=== PATIENT | male | born 1950 | race Caucasian/White ===

== ENCOUNTER → 2020-11-23 08:35 | Outpatient (BNVA) | payer MEDICARE, SELFPAY | PROVIDERS: Visit Provider Internal Medicine Cardiovascular Disease | DX: I48.0 Paroxysmal atrial fibrillation (principal); I47.1 Supraventricular tachycardia | CPT/HCPCS: 93005; 99212 ==

== ENCOUNTER 2020-12-07 10:07 | Outpatient (REF) | payer MEDICARE, SELFPAY ==
[2020-12-07 10:54] LABS: MANUAL DIFF FLAG NO
[2020-12-07 11:00] LABS: Basophils Percent Auto 0.5 % (0-2); Eosinophils Absolute Auto 0.1 X10*3/uL (0.0-0.4); Eosinophils Percent Auto 1.5 % (0-4); Hemoglobin 16.1 g/dl (14.0-18.0); Imm Gran Abs Auto 0.01 X10*3/uL (0.00-0.03); Imm Gran Pct Auto 0.2 % (0.0-0.4); Lymphocytes Absolute Auto 1.4 X10*3/uL (1.2-4.9); Lymphocytes Percent Auto 34.6 % (20-40); Mean Corpuscular HGB Conc 34.3 g/dl (31.0-36.0); Mean Corpuscular Hemoglobin 33.4 pg (27.0-33.0); Mean Corpuscular Volume 97.5 fL (80-98); Mean Platelet Volume 11.1 fL (9.4-12.4); Monocytes Absolute Auto 0.4 X10*3/uL (0.1-1.2); Monocytes Percent Auto 9.7 % (2-11); Neutrophils Absolute Auto 2.2 X10*3/uL (2.0-8.3); Neutrophils Percent Auto 53.5 % (45-73); Platelet Count 148 X10*3/uL (160-400); Red Blood Count 4.82 X10*6/uL (4.60-5.80); Red Cell Distribution Width 12.1 % (11.0-16.0)
[2020-12-07 11:29] LABS: Alanine Aminotransferase 20 U/L (0-40); Albumin Level 4.2 g/dL (3.5-5.0); Alkaline Phosphatase 43 U/L (39-117); Anion Gap 10 (12-20); Aspartate Amino Transferase 19 U/L (5-37); Bilirubin Total 1.3 mg/dL (0.0-1.0); Blood Urea Nitrogen 17 mg/dL (9-16); Calcium 8.8 mg/dL (8.4-10.2); Carbon Dioxide 28 mmol/L (22-29); Chloride 104 mmol/L (96-108); Cholesterol 182 mg/dL; Estimated Glomerular Filt Rate > 60; Glucose Fasting 104 mg/dL (60-99); HDL Cholesterol 60 mg/dL; LDL Cholesterol Calculated 113 mg/dl; Potassium 4.1 mmol/L (3.3-5.1); Sodium 138 mmol/L (135-145); Total Protein 6.8 g/dL (6.5-8.0); Triglycerides 48 mg/dL
[2020-12-07 11:46] LABS: Estimated Average Glucose 97 mg/dL
[2020-12-07 11:52] LABS: T4 Thyroxine 6.5 ug/dL (4.5-12.0); Thyroid Stimulating Hormone 1.31 uIU/mL (0.32-4.0); Vitamin D 25-OH Total 28.3 ng/mL (>30)
[2020-12-07 12:05] LABS: Folate > 20.0 ng/mL (> or = 4.0); Vitamin B12 1364 pg/mL (200-900)
== END 2020-12-07 10:08 | disposition home or self-care (01) ==
LOC: HO.LAB 10:07
PROVIDERS: PCP Internal Medicine; Visit Provider Internal Medicine
DX: I48.0 Paroxysmal atrial fibrillation (principal); R73.01 Impaired fasting glucose; E78.00 Pure hypercholesterolemia, unspecified
CPT/HCPCS: 36415; 80053; 80061; 82306; 82607; 82746; 83036; 84436; 84443; 85025

== ENCOUNTER → 2021-05-28 08:30 | Outpatient (BNVA) | payer MEDICARE, SELFPAY | PROVIDERS: PCP Internal Medicine; Visit Provider Internal Medicine Cardiovascular Disease | DX: I48.0 Paroxysmal atrial fibrillation (principal); I47.1 Supraventricular tachycardia; Z79.899 Other long term (current) drug therapy | CPT/HCPCS: 93005; 99212 ==

== ENCOUNTER 2021-07-24 10:06 | Outpatient (REF) | payer MEDICARE, SELFPAY ==
[2021-07-24 11:38] LABS: MANUAL DIFF FLAG NO
[2021-07-24 11:48] LABS: Basophils Percent Auto 0.5 % (0-2); Eosinophils Absolute Auto 0.1 X10*3/uL (0.0-0.4); Eosinophils Percent Auto 1.9 % (0-4); Hematocrit 44.4 % (42-52); Hemoglobin 15.3 g/dl (14.0-18.0); Imm Gran Abs Auto 0.01 X10*3/uL (0.00-0.03); Imm Gran Pct Auto 0.2 % (0.0-0.4); Lymphocytes Absolute Auto 1.2 X10*3/uL (1.2-4.9); Mean Corpuscular HGB Conc 34.5 g/dl (31.0-36.0); Mean Corpuscular Hemoglobin 33.7 pg (27.0-33.0); Mean Corpuscular Volume 97.8 fL (80-98); Mean Platelet Volume 11.7 fL (9.4-12.4); Monocytes Absolute Auto 0.4 X10*3/uL (0.1-1.2); Neutrophils Absolute Auto 2.6 X10*3/uL (2.0-8.3); Neutrophils Percent Auto 59.4 % (45-73); Platelet Count 138 X10*3/uL (160-400); Red Blood Count 4.54 X10*6/uL (4.60-5.80); Red Cell Distribution Width 12.4 % (11.0-16.0); White Blood Count 4.3 X10*3/uL (4.8-10.8)
[2021-07-24 12:31] LABS: Alanine Aminotransferase 18 U/L (0-40); Albumin Level 4.1 g/dL (3.5-5.0); Alkaline Phosphatase 40 U/L (39-117); Anion Gap 10 (12-20); Aspartate Amino Transferase 17 U/L (5-37); Bilirubin Total 1.2 mg/dL (0.0-1.0); Blood Urea Nitrogen 18 mg/dL (9-16); Carbon Dioxide 27 mmol/L (22-29); Chloride 109 mmol/L (96-108); Cholesterol 177 mg/dL; Estimated Glomerular Filt Rate > 60; Glucose Random 97 mg/dL (60-115); HDL Cholesterol 57 mg/dL; LDL Cholesterol Calculated 111 mg/dl; Potassium 3.8 mmol/L (3.3-5.1); Sodium 142 mmol/L (135-145); Total Protein 6.4 g/dL (6.5-8.0); Triglycerides 46 mg/dL
[2021-07-24 12:46] LABS: Folate 12.2 ng/mL (> or = 4.0); Vitamin B12 550 pg/mL (200-900)
== END 2021-07-24 10:07 | disposition home or self-care (01) ==
LOC: HO.HMGCLDS 10:06
PROVIDERS: PCP Internal Medicine; Visit Provider Internal Medicine
DX: E78.00 Pure hypercholesterolemia, unspecified (principal); I48.0 Paroxysmal atrial fibrillation
CPT/HCPCS: 36415; 80053; 80061; 82607; 82746; 85025

== ENCOUNTER 2021-09-23 10:29 | Emergency (ER) | payer MEDICARE, SELFPAY ==
--- NOTE | ~2021-09-23 | CT_ITS ---
EXAMINATION: CT ABDOMEN AND PELVIS WITHOUT CONTRAST CLINICAL INFORMATION: Left flank pain. COMPARISON: Abdominal ultrasound of 10/30/2017 TECHNIQUE: Multidetector volumetric imaging was performed from the superior aspect of the liver through the pubic symphysis. Sagittal and coronal reformatted images were obtained on the technologist's workstation. This CT examination was performed using dose optimization techniques as appropriate, variously including the following: *Automated exposure control *Adjustment of mA and/or kV according to patient size (this includes techniques or standardized protocols for targeted exams where dose is matched to indication/reason for exam; i.e. extremities or head) *Use of iterative reconstruction technique DLP: 558 mGy-cm FINDINGS: LUNG BASES: The visualized lung bases are unremarkable. LIVER, GALLBLADDER, AND BILIARY TREE: The liver is normal in size, shape, and attenuation. No focal hepatic lesion or biliary ductal dilatation is present. The gallbladder is unremarkable with no evidence of radiopaque gallstones, gallbladder wall thickening, or obvious pericholecystic inflammatory changes. PANCREAS: Unremarkable. SPLEEN: Unremarkable. ADRENAL GLANDS: No right adrenal nodule. Thickening of the left adrenal gland without focal nodule. KIDNEYS, URETERS AND BLADDER: The kidneys are normal in size, shape and attenuation, together measuring 0.7 cm with Hounsfield units of 939, approximately 10 cm from the skin of the posterior mid axillary line. There is a 0.7 cm calculus at the left ureterovesical junction with resultant mild hydroureteronephrosis. No additional radiopaque urinary tract calculi are noted. Mild bladder wall thickening is noted, likely related to underlying prostatomegaly. GASTROINTESTINAL TRACT: Scattered colonic diverticulosis without acute diverticulitis. Moderate stool burden in the colon. No evidence of colonic wall thickening or pericolonic fat stranding. The stomach and small bowel are not dilated. Small hiatal hernia. ABDOMINAL WALL: No significant hernia is appreciated. LYMPH NODES: No evidence of pathologically enlarged lymph nodes. VASCULAR: Unremarkable. PELVIC VISCERA: The prostate is enlarged protruding into the bladder base. It measures 6.3 cm in transverse dimension. Seminal vesicles are unremarkable. OSSEOUS STRUCTURES: Left total hip arthroplasty in place; visualized portions of the surgical hardware are intact. No acute or suspicious osseous abnormality. Mild grade 1 anterolisthesis of L4 over L5. Schmorl's node related changes are noted at L2-L3. Mild degenerative changes in the spine. Degenerative changes in the right hip. CT/CT abdomen pelvis wo con IMPRESSION: A 0.7 cm calculus at the left ureterovesical junction with resultant mild left hydroureteronephrosis. Additional 0.7 cm calculus in the upper pole of the left kidney. Prostatomegaly. Mild bladder wall thickening is likely related to underlying prostatomegaly. Colonic diverticulosis without acute diverticulitis.
[2021-09-23 10:34] VITALS: BP 161/73; PULSE 66; RESP 19; TEMP 36.6; O2SAT 98; BMI 25.0
--- NOTE | 2021-09-23 12:50 | ED_ITS ---
HPI - Male Genitourinary General Chief complaint: Urogenital-Male Stated complaint: urinary problem Time Seen by Provider: 09/23/21 12:49 Source: patient Mode of arrival: ambulatory Limitations: no limitations History of Present Illness HPI Narrative: 71-year-old male with a history of BPH, paroxysmal AFib on Xare lto, SVT, seizures, thrombocytopenia presents to the ER with brown colored urine for the last 2-3 days along with intermittent left flank pain. He reports his urine started becoming an orange color 3 days ago. He attributed it to not drinking enough water so he increased his oral hydation. He also noticed some left-sided back pain that is worse in the mornings. He attributed this to doing yd work and needing a new mattress. This morning he states his urine was dark brown in color which made him nervous. He has never had dark brown urine for. He denies any pain upon urination. He has had increased frequency but no urgency, no fever, no nausea, no vomiting, and no abdominal pain. He states while he was in the waiting room he urinated 4 times and his urine is now completely clear. MD Complaint: other ( Brown urine and left flank pain) Onset (ago): day(s) (3) Duration: intermittent and now resolved Location: penis and left flank Severity: moderate Quality: aching Relieving factors: none Exacerbating factors: none Associated symptoms: Reports denies other symptoms Related Data Home Medications Medication Instructions Recorded Confirmed cholecalciferol (vitamin D3) 25 25 mcg PO DAILY 08/18/20 06/12/21 mcg (1,000 unit) capsule cyanocobalamin (vitamin B-12) 1,000 mcg PO 2XW cap 06/12/21 06/12/21 1,000 mcg capsule folic acid 800 mcg tablet 0.8 mg PO 2XW tab 06/12/21 06/12/21 Previous Rx's Medication Instructions Recorded rivaroxaban 20 mg tablet (Xarelto) 20 mg PO DAILY #90 tab 02/05/21 metoprolol succinate 25 mg 25 mg PO DAILY 90 Days #90 tab 04/30/21 tablet,extended release 24 hr flecainide 50 mg tablet 50 mg PO BID #180 tab 07/23/21 hydrocodone 5 mg-acetaminophen 325 1 tab PO Q8H PRN #5 tab 09/23/21 mg tablet prednisone 20 mg tablet 40 mg PO DAILY #10 tab 09/23/21 tamsulosin 0.4 mg capsule (Flomax) 0.4 mg PO DAILY #5 cap 09/23/21 Allergies Allergy/AdvReac Type Severity Reaction Status Date / Time chlorpromazine Allergy Unknown Unknown Verified 06/12/21 09:35 prochlorperazine Allergy Unknown N/V Verified 06/12/21 09:35 [From COMPAZINE] SEIZURES Review of Systems Review of Systems: Constitutional: No Fever, + Chills ENT/Mouth: No sore throat, No Rhinorrhea, No Swallowing Difficulty Cardiovascular: No Chest Pain, No SOB Respiratory: No Cough, No Sputum Gastrointestinal: No Nausea, No Vomiting, No Diarrhea, No abdominal Pain Genitourinary: No Dysuria, + Urinary Frequency, No Hematuria, + brown urine, No foul smelling urine Musculoskeletal: No joint pain, + Myalgias Skin: No Skin Lesions, No rash Neuro: No Weakness, No Numbness, No Dizziness, No Headache Psych: No Anxiety/Panic, No Depression Heme/Lymph: No Bruising, No Lymphadenopathy Endocrine: No Polyuria, No Polydipsia PMFSH Past Medical History Attestation statement: The following information was validated with the patient. Medical History Hepatitis History of torn meniscus of right knee Hypercholesterolemia Impaired glucose tolerance Paroxysmal atrial fibrillation Seizures SVT (supraventricular tachycardia) Thrombocytopenia Vitamin D deficiency Surgical History Carpal tunnel syndrome History of left hip replacement S/P arthroscopic surgery of right knee Family History Family History Father Medical history unknown Mother Medical history unknown Social History Social History (Updated 06/12/21 @ 10:15 by Tasha Nelson MD) Alcohol intake: current Alcohol intake frequency: does not drink Patient Tobacco Use Status: Never used Tobacco Use of substances other than those prescribed or required for medical reasons: No Advance Directives: No Physical Exam Vital Signs: Vital Signs: Last Vital Signs Temp 97.9 F 09/23/21 14:54 Pulse 56 09/23/21 14:54 Resp 16 09/23/21 14:54 BP 136/71 09/23/21 14:54 Pulse Ox 100 09/23/21 14:54 Body Mass Index 25.0 Appearance: Alert. Oriented X3. No acute distress. Eyes: Pupils equal, round and reactive to light. ENT: Pharynx normal. Neck: Normal inspection. Neck supple. CVS: Normal heart rate and rhythm. Pulses normal. Respiratory: No respiratory distress. Breath sounds normal. Abdomen: Soft and nontender. +BS x4. No CVA tenderness. Skin: Skin warm and dry. Normal skin color. Normal skin turgor. No rashes. Extremities: No lower extremity edema. Neuro: Oriented X 3. No motor deficit. No sensory deficit. Course Course Course Narrative: 71-year-old male with history of paroxysmal AFib on Xarelto, HTN, SVT, HLD who presents to the ER with discolored urine and left flank pain. These seem to be 2 different processes. He has no CVA tenderness or other signs or symptoms of pyelonephritis or kidney stone. This pain seems to be musculoskeletal and related to positioning while sleeping and strenuous activity. his brown-colored urine has self resolved. This could be due to UTI or possible much hematuria due to anticoagulation. There is no trauma. Will check basic lab workup and urinalysis. IV fluids ordered. Reevaluation(s) Reevaluation #1: UA showing blood but no infection. Normal labs otherwise. CT abd/pelvis showing 0.7 cm kidney stone at UVJ with mild hydronephrosis. Another 0.7 cm stone in the upper pole of the left kidney. Patient is in no pain and appears well. Dr. Murcia was contacted who is recommending follow up in the off ice in a few days. Will d/c with Prednisone and Flomax. Stable for d/c home. Patient and counseled on warning signs to promput urgent re-evaluation. MDM - Male Genitourinary Lab Data Result diagrams: 09/23/21 13:22 09/23/21 13:22 Labs: Lab Results 09/23/21 09/23/21 09/23/21 Range/Units 13:22 13:22 13:22 WBC 6.1 (4.8-10.8) X10*3/uL RBC 4.69 (4.60-5.80) X10*6/uL Hgb 15.9 (14.0-18.0) g/dl Hct 45.4 (42.0-52.0) % MCV 96.8 (80.0-98.0) fL MCH 33.9 H (27.0-33.0) pg MCHC 35.0 (31.0-36.0) g/dl RDW 12.3 (11.0-16.0) % Plt Count 158 L (160-400) X10*3/uL MPV 10.6 (9.4-12.4) fL Immature Gran % (Auto) 0.2 (0.0-0.4) % Neut % (Auto) 73.5 H (45-73) % Lymph % (Auto) 18.8 L (20-40) % [place] % (Auto) 6.9 (2-11) % Eos % (Auto) 0.3 (0-4) % Baso % (Auto) 0.3 (0-2) % Lymph # (Auto) 1.1 L (1.2-4.9) X10*3/uL [place] # (Auto) 0.4 (0.1-1.2) X10*3/uL Eos # (Auto) 0.0 (0.0-0.4) X10*3/uL Baso # (Auto) 0.0 (0.0-0.2) X10*3/uL Abs Immat Gran (auto) 0.01 (0.00-0.03) X10*3/uL Absolute Neuts (auto) 4.5 (2.0-8.3) x10*3/uL Absolute Nucleated RBC 0.000 (0.0-0.012) X10*3/uL Nucleated RBC % (auto) 0.0 (0.0-0.2) /100WBC PT 16.2 H (9.9-13.0) SEC INR 1.4 H (0.9-1.1) APTT 37.6 (24.1-38.0) SEC Sodium 139 (135-145) mmol/L Potassium 4.3 (3.3-5.1) mmol/L Chloride 106 (96-108) mmol/L Carbon Dioxide 25 (22-29) mmol/L Anion Gap 12 (12-20) BUN 14 (9-16) mg/dL Creatinine 0.70 (0.5-1.4) mg/dL Estim Creat Clear Calc 90.9 Estimated GFR > 60 Random Glucose 95 (60-115) mg/dL Calcium 9.4 (8.4-10.2) mg/dL Magnesium 2.1 (1.6-2.6) mg/dL Total Bilirubin 1.0 (0.0-1.0) mg/dL Direct Bilirubin 0.4 (0.0-0.5) mg/dL AST 23 (5-37) U/L ALT 26 (0-40) U/L Alkaline Phosphatase 48 (39-117) U/L Total Protein 6.9 (6.5-8.0) g/dL Albumin 4.2 (3.5-5.0) g/dL Urine Color Urine Appearance Urine pH (5.0-8.0) Ur Specific [place] (1.005-1.025) Urine Protein (NEG-TRACE) MG/DL Urine Glucose (UA) (NEG) MG/DL Urine Ketones (NEG) MG/DL Urine Blood (NEG) Urine Nitrite (NEG) Ur Leukocyte Esterase (NEG) Urine RBC (0) /HPF Urine WBC (0-4) /HPF Ur Squamous Epith Cells /LPF Other Crystals /LPF Urine Bacteria /LPF COVID-19 ([facility]) (Negative) COVID-19 Clin Com 09/23/21 09/23/21 Range/Units 13:22 13:34 WBC (4.8-10.8) X10*3/uL RBC (4.60-5.80) X10*6/uL Hgb (14.0-18.0) g/dl Hct (42.0-52.0) % MCV (80.0-98.0) fL MCH (27.0-33.0) pg MCHC (31.0-36.0) g/dl RDW (11.0-16.0) % Plt Count (160-400) X10*3/uL MPV (9.4-12.4) fL Immature Gran % (Auto) (0.0-0.4) % Neut % (Auto) (45-73) % Lymph % (Auto) (20-40) % [place] % (Auto) (2-11) % Eos % (Auto) (0-4) % Baso % (Auto) (0-2) % Lymph # (Auto) (1.2-4.9) X10*3/uL [place] # (Auto) (0.1-1.2) X10*3/uL Eos # (Auto) (0.0-0.4) X10*3/uL Baso # (Auto) (0.0-0.2) X10*3/uL Abs Immat Gran (auto) (0.00-0.03) X10*3/uL Absolute Neuts (auto) (2.0-8.3) x10*3/uL Absolute Nucleated RBC (0.0-0.012) X10*3/uL Nucleated RBC % (auto) (0.0-0.2) /100WBC PT (9.9-13.0) SEC INR (0.9-1.1) APTT (24.1-38.0) SEC Sodium (135-145) mmol/L Potassium (3.3-5.1) mmol/L Chloride (96-108) mmol/L Carbon Dioxide (22-29) mmol/L Anion Gap (12-20) BUN (9-16) mg/dL Creatinine (0.5-1.4) mg/dL Estim Creat Clear Calc Estimated GFR Random Glucose (60-115) mg/dL Calcium (8.4-10.2) mg/dL Magnesium (1.6-2.6) mg/dL Total Bilirubin (0.0-1.0) mg/dL Direct Bilirubin (0.0-0.5) mg/dL AST (5-37) U/L ALT (0-40) U/L Alkaline Phosphatase (39-117) U/L Total Protein (6.5-8.0) g/dL Albumin (3.5-5.0) g/dL Urine Color STRAW Urine Appearance CLEAR Urine pH 6.0 (5.0-8.0) Ur Specific [place] <= 1.005 (1.005-1.025) Urine Protein NEG (NEG-TRACE) MG/DL Urine Glucose (UA) NEG (NEG) MG/DL Urine Ketones NEG (NEG) MG/DL Urine Blood 3+ H (NEG) Urine Nitrite NEG (NEG) Ur Leukocyte Esterase NEG (NEG) Urine RBC 0-2 (0) /HPF Urine WBC 0 (0-4) /HPF Ur Squamous Epith Cells NONE /LPF Other Crystals TRACE /LPF Urine Bacteria NONE /LPF COVID-19 ([facility]) Negative (Negative) COVID-19 Clin Com See Note Critical Care Time Critical Care Time Critical Care Time: No Discharge Plan Discharge Clinical Impression: Kidney stone on left side Patient Disposition: Home, Self-Care Instructions: Kidney Stones (ED), How to Strain Your Urine (ED) Additional Instructions: Your CT scan showed a 7 mm kidney stone in the distal left ureter, almost to the point of your bladder. You hopefully will pass his stone at home on your own. You are being given medication to help with this. Start taking the prednisone adn tamsulosin tomorrow, your given 1st doses today in the ER. Take the prescribed medication as needed for pain. The pains may come and go. If they are persistent and severe he had to come back to the emergency department. Follow-up with Dr. Murcia the urologist on Friday or early after . He is aware of your case. Drink plenty of water. If you develop new or worsening symptoms call 911 or come back to the ER for further evaluation. Prescriptions: New prednisone 20 mg tablet 40 mg PO DAILY Qty: 10 RF: 0 tamsulosin [Flomax] 0.4 mg capsule 0.4 mg PO DAILY Qty: 5 RF: 0 hydrocodone-acetaminophen 5-325 mg tablet 1 tab PO Q8H PRN (Reason: pain) Qty: 5 RF: 0 No Action rivaroxaban [Xarelto] 20 mg tablet 20 mg PO DAILY Qty: 90 RF: 3 metoprolol succinate 25 mg tablet extended release 24 hr 25 mg PO DAILY 90 Days Qty: 90 RF: 3 flecainide 50 mg tablet 50 mg PO BID Qty: 180 RF: 1 cholecalciferol (vitamin D3) 25 mcg (1,000 unit) capsule 25 mcg PO DAILY RF: 0 folic acid 800 mcg tablet 0.8 mg PO 2XW RF: 0 cyanocobalamin (vitamin B-12) 1,000 mcg capsule 1,000 mcg PO 2XW RF: 0 Referrals: Aiden Murcia MD [Physician] - 3 days (0.7 cm kidney stone at left UVJ w/ mild hydro)
[2021-09-23 13:31] LABS: MANUAL DIFF FLAG NO
[2021-09-23 13:32] LABS: Basophils Percent Auto 0.3 % (0-2); Eosinophils Percent Auto 0.3 % (0-4); Hematocrit 45.4 % (42.0-52.0); Hemoglobin 15.9 g/dl (14.0-18.0); Imm Gran Abs Auto 0.01 X10*3/uL (0.00-0.03); Imm Gran Pct Auto 0.2 % (0.0-0.4); Lymphocytes Absolute Auto 1.1 X10*3/uL (1.2-4.9); Lymphocytes Percent Auto 18.8 % (20-40); Mean Corpuscular Hemoglobin 33.9 pg (27.0-33.0); Mean Corpuscular Volume 96.8 fL (80.0-98.0); Mean Platelet Volume 10.6 fL (9.4-12.4); Monocytes Absolute Auto 0.4 X10*3/uL (0.1-1.2); Monocytes Percent Auto 6.9 % (2-11); Neutrophils Absolute Auto 4.5 x10*3/uL (2.0-8.3); Neutrophils Percent Auto 73.5 % (45-73); Platelet Count 158 X10*3/uL (160-400); Red Blood Count 4.69 X10*6/uL (4.60-5.80); Red Cell Distribution Width 12.3 % (11.0-16.0); White Blood Count 6.1 X10*3/uL (4.8-10.8)
[2021-09-23] MEDS: 0.9 % Sodium Chloride 1,000 ML 999 ML IVCONT (13:35)
[2021-09-23 13:38] LABS: INTERNATIONAL NORM RATIO 1.4 (0.9-1.1); Prothrombin Time 16.2 SEC (9.9-13.0)
[2021-09-23 13:40] LABS: Partial Thromboplastin Time 37.6 SEC (24.1-38.0)
[2021-09-23 13:47] LABS: COVID-19 Test Negative (Negative)
[2021-09-23 13:49] LABS: Alanine Aminotransferase 26 U/L (0-40); Albumin Level 4.2 g/dL (3.5-5.0); Alkaline Phosphatase 48 U/L (39-117); Anion Gap 12 (12-20); Aspartate Amino Transferase 23 U/L (5-37); Bilirubin Direct 0.4 mg/dL (0.0-0.5); Blood Urea Nitrogen 14 mg/dL (9-16); Calcium 9.4 mg/dL (8.4-10.2); Carbon Dioxide 25 mmol/L (22-29); Chloride 106 mmol/L (96-108); Creatinine Clr Calc Pharmacy 90.9; Estimated Glomerular Filt Rate > 60; Glucose Random 95 mg/dL (60-115); Magnesium 2.1 mg/dL (1.6-2.6); Potassium 4.3 mmol/L (3.3-5.1); Sodium 139 mmol/L (135-145); Total Protein 6.9 g/dL (6.5-8.0)
[2021-09-23 13:54] LABS: Appearance Urine CLEAR; Glucose Urine UA NEG (NEG); Leukocyte Esterase Urine NEG (NEG); Nitrite Urine NEG (NEG); Specific Gravity - Urine <= 1.005 (1.005-1.025); UACC Culture Trigger NO; Urine Blood 3+ (NEG); Urine Ketones NEG (NEG); Urine Protein NEG (NEG-TRACE)
[2021-09-23 13:58] LABS: Color Urine STRAW
[2021-09-23 14:16] LABS: WBC Urine 0 /HPF (0-4)
[2021-09-23 14:17] LABS: Other Crystals Urine TRACE /LPF; RBC Urine 0-2 /HPF (0)
[2021-09-23 14:54] VITALS: BP 136/71; PULSE 56; RESP 16; TEMP 36.6; O2SAT 100
[2021-09-23] MEDS: predniSONE 20 MG TABLET 40 MG PO (17:06)
[2021-09-23] MEDS: Tamsulosin HCL 0.4 MG CAPSULE PO (17:07)
== END 2021-09-23 17:14 | disposition home or self-care (01) ==
PROVIDERS: Physician Assistant; Emergency Provider Emergency Medicine Emergency Medical Services; PCP Internal Medicine
DX: N20.0 Calculus of kidney (principal); I48.91 Unspecified atrial fibrillation; Z79.01 Long term (current) use of anticoagulants; Z20.822 Contact with and (suspected) exposure to COVID-19; Z79.899 Other long term (current) drug therapy
CPT/HCPCS: 36415; 74176; 80048; 80076; 81001; 83735; 85025; 85610; 85730; 87635; 96360; 99284

== ENCOUNTER → 2021-10-03 15:33 | Outpatient (BNVA) | payer MEDICARE, SELFPAY | PROVIDERS: PCP Internal Medicine | DX: N20.0 Calculus of kidney (principal) | CPT/HCPCS: 99202 ==

== ENCOUNTER 2021-10-08 13:12 | Day surgery (SDC) | payer MEDICARE, SELFPAY ==
--- NOTE | 2021-10-05 13:52 | P.CONAN_ITS ---
Documented by User: Maryann Enriquez NP 10/05/21 14:03 HPI - Anesthesia Eval Consult details Narrative: 71yo M for Left Cystoscopy, Ureteroroscopy, Retro, Laser, Possible Stent Xarelto for PAF OK to proceed and hold xarelto per cardiology [facility] Active Problems Active Problems: All Active Problems (Updated 10/03/21 @ 16:44 by Aiden Murcia MD) Nephrolithiasis (Acute) BPH (benign prostatic hyperplasia) (Acute) Guaiac positive stools (Acute) Medicare annual wellness visit, initial (Acute) Vitamin D deficiency (Acute) SVT (supraventricular tachycardia) (Acute) Allergic reaction (Acute) Hypercholesterolemia (Acute) Impaired glucose tolerance (Acute) Paroxysmal atrial fibrillation (Acute) Past Medical History Medical History Hepatitis History of torn meniscus of right knee Hypercholesterolemia Impaired glucose tolerance Paroxysmal atrial fibrillation Seizures SVT (supraventricular tachycardia) Thrombocytopenia Vitamin D deficiency Family History Family History Father Medical history unknown Mother Medical history unknown Surgical History Surgical History Carpal tunnel syndrome History of left hip replacement S/P arthroscopic surgery of right knee Social History Social History Alcohol intake: current Alcohol intake frequency: does not drink Patient Tobacco Use Status: Never used Tobacco Use of substances other than those prescribed or required for medical reasons: No Are you DNR?: No Advance Directives: No Advance Directives Information Provided: Yes Meds Allergies Allergy/AdvReac Type Severity Reaction Status Date / Time chlorpromazine Allergy Unknown Unknown Verified 10/08/21 13:45 prochlorperazine Allergy Unknown N/V Verified 10/08/21 13:45 [From COMPAZINE] SEIZURES Home Medications Medication Instructions Recorded Confirmed Last Taken Type cholecalciferol (vitamin D3) 25 25 mcg PO DAILY 08/18/20 06/12/21 Unknown History mcg (1,000 unit) capsule cyanocobalamin (vitamin B-12) 1,000 mcg PO 2XW cap 06/12/21 06/12/21 Unknown History 1,000 mcg capsule folic acid 800 mcg tablet 0.8 mg PO 2XW tab 06/12/21 06/12/21 Unknown History Exam Exam Date and Time: October 05, 2021 1352 Pertinent Lab Results Pertinent Lab Results: Laboratory Tests 09/23/21 09/23/21 13:22 13:22 WBC 6.1 Hgb 15.9 Hct 45.4 Plt Count 158 L Sodium 139 Potassium 4.3 Chloride 106 Carbon Dioxide 25 BUN 14 Creatinine 0.70 Narrative Narrative: EKG 05/2021 sinus bradycardia with left axis deviation with some QRS widening, unchanged from before with Q-waves in lead 1 and lead aVL which might be suggestive septal hypertrophy ECHO 08/2019 Nml LV sys function with impaired relaxation filling pattern Nml cardiac valvular doppler Nml RV systolic pressure Moderate tricuspid regurg No pericardial effusion Assessment and Plan Assessment Anesthesia Assessment: Chart Reviewed Documented by User: Lynda Lorenzana MD 10/08/21 14:28 PMFSH Past Medical History Medical History Hepatitis History of torn meniscus of right knee Hypercholesterolemia Impaired glucose tolerance Paroxysmal atrial fibrillation Seizures SVT (supraventricular tachycardia) Thrombocytopenia Vitamin D deficiency Family History Family History Father Medical history unknown Mother Medical history unknown Family history of problems with anesthesia: No Surgical History Surgical History Carpal tunnel syndrome History of left hip replacement S/P arthroscopic surgery of right knee History of Problems with Anesthesia: No Social History Social History Alcohol intake: current Alcohol intake frequency: does not drink Patient Tobacco Use Status: Never used Tobacco Use of substances other than those prescribed or required for medical reasons: No Are you DNR?: No Advance Directives: No Advance Directives Information Provided: Yes Meds Allergies Allergy/AdvReac Type Severity Reaction Status Date / Time chlorpromazine Allergy Unknown Unknown Verified 10/08/21 13:45 prochlorperazine Allergy Unknown N/V Verified 10/08/21 13:45 [From COMPAZINE] SEIZURES Home Medications Medication Instructions Recorded Confirmed Last Taken Type cholecalciferol (vitamin D3) 25 25 mcg PO DAILY 08/18/20 06/12/21 Unknown History mcg (1,000 unit) capsule cyanocobalamin (vitamin B-12) 1,000 mcg PO 2XW cap 06/12/21 06/12/21 Unknown History 1,000 mcg capsule folic acid 800 mcg tablet 0.8 mg PO 2XW tab 06/12/21 06/12/21 Unknown History Exam Airway Mallampati Class: II TM Dist: >3cm Neck ROM: Full Heart: hussain Lungs: cta Assessment and Plan Assessment Anesthesia Assessment: Anesthesia Plan Discussed and Chart Reviewed Final Anesthetic Review Family History of Problems with Anesthesia: No History of Problems with Anesthesia: No NPO: Yes ASA Class: II Final Preanesthetic Review: No Changes in Pt Med Stat, Meds/Allgs Chart Reviewed and Consent Obtained/Reviewed Patient Risk: Intermediate Procedure Risk: Intermediate Anesthetic Plan Anesthetic Plan: MAC: Disposition: Standard PACU
[2021-10-08 13:45] VITALS: BMI 25.0
[2021-10-08 13:57] VITALS: BP 137/70; PULSE 51; RESP 16; TEMP 36.7; O2SAT 99
[2021-10-08] MEDS: Acetaminophen 325 MG TABLET 650 MG PO (14:04)
[2021-10-08] MEDS: Lactated Ringers 1,000 ML 100 ML IVCONT (14:25)
--- NOTE | 2021-10-08 15:36 | MHC.SHP ---
Pre-Procedural Eval Section A Date of Service: 10/08/21 The patient is an INPATIENT: No Changes since office visit: No Cold of Flu in the past 2 weeks, No New Medical Problems, No Changes in Medication and No Patient answered all questions The History & Physical has been completed within 30 days and I have reviewed it.: Yes Section B Chief Complaint: Calculus of Kidney Allergies: Allergies Allergy/AdvReac Type Severity Reaction Status Date / Time chlorpromazine Allergy Unknown Unknown Verified 10/08/21 13:45 prochlorperazine Allergy Unknown N/V Verified 10/08/21 13:45 [From COMPAZINE] SEIZURES Plan Diagnosis/Plan: Unchanged (Cystoscopy, left retrograde, left ureteroscopy laser lithotripsy stent placement) I have reviewed the history and physical and performed a pertinent physical examination on my patient. No changes have occurred unless specified.
--- NOTE | 2021-10-08 16:12 | W.PM.OPN ---
Operative Note Operative Note Date of Service: 10/08/21 Narrative: PreOperative Diagnosis: Distal left ureteric stone Post Operative Diagnosis: Distal left ureteric stone Procedure: - cystoscopy, leftretrograde - left ureteroscopy, laser lithotripsy, stone basketing - left stent placement Surgeon: Dr Aiden Murcia Anesthesia: General Indications for procedure: Is a 71-year-old male. Presents emergency room with hematuria. On imaging seen to have a distal left ureteric stone. Baseline is on anticoagulation. Given stone location and size recommendation for ureteroscopy with laser lithotripsy and stent placement. Procedure: After informed consent was verified patient was brought to the operating placed in supine position. Anesthesia was administered per protocol. Patient was placed in modified dorsal lithotomy position and prepped and draped in a sterile fashion. Safety pause time-out and side of surgery confirmed. Antibiotics confirmed. Twenty-two [place] cystoscope inserted per urethra. Slight meatal narrowing that was easy to dilate. Left ureteric orifice seen and cannulated. Retrograde examination performed. Distal left ureteric stone filling defect seen with mild hydroureteronephrosis proximally. Sensor guidewire placed up to the level of pelvis. Rigid ureteral scope passed alongside sensor guidewire. Stone encountered in distal portion of the ureter. Using a holmium laser the stone was broken into small pieces. This was a 360 micron fiber. Using a flat wire basket stone fragments were removed from the ureter and deposited in the bladder. Multiple passes were required. At this point the rigid ureteral scope was removed. The wire was backloaded through the 22 [place] cystoscope. The cystoscope was advanced into the bladder. A 6 [place] by 26 cm double-J stent was advanced over the wire up to the level of the renal pelvis and the bladder under combination of fluoroscopy and direct visualization. Good coil was seen. The wire was removed. The bladder was then emptied and stone fragments were washed into the drape. Stone fragments were collected only sent for analysis. The bladder was emptied. The cystoscope removed. He tolerated the procedure well, was extubated in operating room, and transferred in stable condition to the recovery area. Pathology: Stones Drains: 6 [place] by 26 cm stent
[2021-10-08 16:18] VITALS: BP 133/68; PULSE 53; RESP 16; TEMP 36.2; O2SAT 100
[2021-10-08 16:23] VITALS: BP 136/67; PULSE 48; RESP 16; O2SAT 99
[2021-10-08 16:28] VITALS: BP 137/72; PULSE 49; RESP 18; O2SAT 100
[2021-10-08 16:33] VITALS: BP 141/74; PULSE 50; RESP 18; O2SAT 100
[2021-10-08 16:48] VITALS: BP 137/69; PULSE 51; RESP 18; TEMP 36.4
[2021-10-08] MEDS: Phenazopyridine HCL 100 MG TABLET PO (17:12)
[2021-10-14 06:46] LABS: Stone Source LEFT URETERAL STONE
== END 2021-10-08 17:25 | disposition home or self-care (01) ==
PROVIDERS: PCP Internal Medicine; Visit Provider Urology
PROC: (CPT 52356; principal; 2021-10-08 15:00)
DX: N20.1 Calculus of ureter (principal); R73.02 Impaired glucose tolerance (oral); E78.00 Pure hypercholesterolemia, unspecified; I48.0 Paroxysmal atrial fibrillation; D69.6 Thrombocytopenia, unspecified; E55.9 Vitamin D deficiency, unspecified; R56.9 Unspecified convulsions; Z79.899 Other long term (current) drug therapy; Z88.8 Allergy status to other drugs, medicaments and biological substances
CPT/HCPCS: 52356; 52352; 82365; 88300; C1758; C1769; C2617; J1956; J2405; J3010; Q9967

== ENCOUNTER → 2021-10-16 09:00 | Outpatient (BNVA) | payer MEDICARE, SELFPAY | PROVIDERS: Visit Provider Urology | DX: N20.0 Calculus of kidney (principal) | CPT/HCPCS: 52310; 99212 ==

== ENCOUNTER 2021-11-06 16:03 | Outpatient (REF) | payer MEDICARE, SELFPAY ==
--- NOTE | ~2021-11-06 | US_ITS ---
EXAMINATION: US RETROPERITONEAL LIMITED (RENAL ONLY) CLINICAL INFORMATION: Calculus of kidney. COMPARISON: CT abdomen and pelvis 10/23/2021. Ultrasound abdomen complete 10/30/2017. TECHNIQUE: Real-time imaging of the kidneys. FINDINGS: RIGHT KIDNEY: 11.5 x 4.9 x 4.6 cm (SAG x AP x TRV). The kidney is normal in size, contour, and echogenicity. Renal cortical thickness is normal. No calculi or focal parenchymal lesions. No hydronephrosis. LEFT KIDNEY: 10.3 x 5.5 x 6.2 cm (SAG x AP x TRV). The kidney is normal in size, contour, and echogenicity. Renal cortical thickness is normal. No focal parenchymal lesions or hydronephrosis. There is an echogenic stone in lower pole measuring 0.7 x 0.4 x 0.6 cm. There is a punctate calcification versus small echogenic calculi in the upper pole. US/US renal BI IMPRESSION: 1. Nonobstructive echogenic calculi lower pole left kidney. 2. Punctate calcification versus stone in the upper pole.
== END 2021-11-06 16:04 | disposition home or self-care (01) ==
LOC: HO.US 16:03
PROVIDERS: Visit Provider Urology
DX: N20.0 Calculus of kidney (principal)
CPT/HCPCS: 76775

== ENCOUNTER → 2021-11-12 11:27 | Outpatient (REF) | payer MEDICARE, SELFPAY ==
--- NOTE | 2021-11-12 11:37 | CA_ITS ---
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 The calculated ejection fraction is 64% by biplane method. - There is mild to moderate tricuspid valve regurgitation. Findings Left Ventricle Normal left ventricular cavity size. There is mildly increased left ventricular wall thickness. The left ventricular systolic function is normal. The calculated ejection fraction is 64% by biplane method. There is no evidence of regional wall motion abnormalities. E/E prime ratio is >15, consistent with elevated filling pressures. Evidence suggests grade I (mild) diastolic dysfunction. Right Ventricle Normal right ventricular cavity size and systolic function. Atria The left atrium is mildly dilated. The right atrium is normal in size. Aortic Valve There is a normal trileaflet aortic valve. There is no aortic valve stenosis. There is no aortic valve regurgitation. Mitral Valve The mitral valve appears normal. There is trace mitral valve regurgitation. There is no mitral valve stenosis. Pulmonic Valve The pulmonic valve was not well visualized. Tricuspid Valve Normal tricuspid valve structure. There is mild to moderate tricuspid valve regurgitation. The pulmonary artery systolic pressure is normal. Great Vessels The aortic annulus, sinuses of valsalva, and asc aorta are normal in size. Venous The inferior vena cava is normal in size and collapses greater than 50% with inspiration. Pericardium/Pleural There is no evidence of pericardial effusion. Prior Study Comparison No significant change compared to prior study dated: 08/26/2019. Measurements 2D Linear Measurements IVSd: 1.18 0.6-0.9/0.6-1.0 cm LVIDd: 4.15 3.9-5.3/4.2-5.9 cm LVIDd Index: 2.21 2.4-3.2/2.2-3.1 cm/m2 LVIDs: 2.48 2.0-3.6 cm LVPWd: 1.15 0.7-1.1 cm Ao Root: 3.10 2.1-3.5 cm LA Diam: 3.60 2.7-3.8/3.0-4.0 cm LAIDs Index: 1.91 1.5-2.3 cm/m2 LV Mass: 208.65 67-162/88-224 g LV Mass Index: 110.98 43-95/49-115 g/m2 LVOT Diam: 2.20 3.0+(-)1.3 cm 2D Systolic Function EF 4C: 63.80 >55% EF 2C: 62.40 >55% EF BiP: 63.60 >55% Mitral Valve MV Pk E: 0.81 MV PK A: 0.92 MV Decel Time: 248.00 E/A: 0.90 E'Lateral: 8.59 E'Medial: 4.90 E/E' Med: 16.40 E/E' Lat: 9.40 PHT: 73.00 MVA PHT: 3.01 Decel [place]: 3.24 Aortic Valve AoV Pk Tino: 1.46 AoV Mn Tino: 0.89 AoV VTI: 0.34 AoV Pk Grad: 9.00 Aov Mn Grad: 4.00 JAMESON Cont.VTI: 3.21 LVOT LVOT Pk Tino: 1.10 LVOT Mn Tino: 0.74 LVOT VTI: 0.28 LVOT Pk Grad: 5.00 LVOT Mn Grad: 3.00 LVOT Diam: 2.20 LVOT Area: 3.80 Diastolic Function MV Pk E: 0.81 MV Pk A: 0.92 E/A: 0.90 E'Medial: 4.90 E/E' Med: 16.40 E' Laterial: 8.59 E/E' Lat: 9.40 Right Ventricle TAPSE (mm): 36.00 TVS' Tino: 14.00 Tricuspid Valve TR Pk Tino: 2.73 TR Pk Grad: 30.00 Great Vessels Aorta Ao Root-2D: 3.10 2.0-3.7 cm Ao Asc: 3.00 2.1-3.4 cm Pulmonary Valve PV Pk Tino: 0.87 Peak PV Grad: 3.00 Updated in Other Vendor System with Status of Final Tobi Gomez MD electronically signed on 11/12/2021 4:58:20 PM with status of Final
== END ==
LOC: HO.CARD 11:27
PROVIDERS: Visit Provider Internal Medicine Cardiovascular Disease
DX: I48.0 Paroxysmal atrial fibrillation (principal); I47.1 Supraventricular tachycardia
CPT/HCPCS: 93306

== ENCOUNTER → 2021-11-19 09:29 | Outpatient (BNVA) | payer MEDICARE, SELFPAY | PROVIDERS: PCP Internal Medicine; Referring Provider Internal Medicine; Visit Provider Internal Medicine Cardiovascular Disease | DX: I48.0 Paroxysmal atrial fibrillation (principal); I47.1 Supraventricular tachycardia; I07.1 Rheumatic tricuspid insufficiency | CPT/HCPCS: 93005; 99212 ==

== ENCOUNTER → 2021-12-18 13:13 | Outpatient (BNVA) | payer MEDICARE, SELFPAY | PROVIDERS: PCP Internal Medicine; Visit Provider Urology | DX: N20.0 Calculus of kidney (principal) | CPT/HCPCS: Q3014 ==

== ENCOUNTER → 2021-12-19 15:24 | Outpatient (BNVA) | payer MEDICARE, SELFPAY | PROVIDERS: PCP Internal Medicine; Visit Provider Urology | DX: Z13.89 Encounter for screening for other disorder (principal) | CPT/HCPCS: Q3014 ==

== ENCOUNTER 2022-01-16 07:02 | Day surgery (SDC) | payer MEDICARE, SELFPAY ==
[2022-01-14 09:25] VITALS: BMI 25.4
--- NOTE | 2022-01-14 12:15 | HO.ANESPROP2 ---
Documented by User: Maryann Enriquez NP 01/14/22 12:23 HPI - Anesthesia Eval Consult details Narrative: 71yo M for Left Lithotripsy ESW s/p cysto, etc 10/2021 with GA-LMA 4 Xarelto for afib PMFSH Active Problems Active Problems: All Active Problems (Updated 01/14/22 @ 09:25 by Franci Lindsay, RN) Allergic reaction (Acute) Medicare annual wellness visit, initial (Acute) Guaiac positive stools (Acute) BPH (benign prostatic hyperplasia) (Acute) Nephrolithiasis (Acute) Colon cancer screening (Acute) Vitamin D deficiency (Acute) SVT (supraventricular tachycardia) (Acute) Hypercholesterolemia (Acute) Impaired glucose tolerance (Acute) Paroxysmal atrial fibrillation (Acute) Past Medical History Medical History Hepatitis History of torn meniscus of right knee Hypercholesterolemia Impaired glucose tolerance Paroxysmal atrial fibrillation Seizures SVT (supraventricular tachycardia) Thrombocytopenia Vitamin D deficiency Family History Family History Father Medical history unknown Mother Medical history unknown Family history of problems with anesthesia: No Surgical History Surgical History Carpal tunnel syndrome History of left hip replacement Hx of colonoscopy S/P arthroscopic surgery of right knee History of Problems with Anesthesia: No Social History Social History Housing: House Are you a primary health care technician to a significant other at home: No Do you presently have visiting nurse or other home services: No Alcohol intake: current Alcohol intake frequency: does not drink Patient Tobacco Use Status: Never used Tobacco e-Cigarette/Vaping Use: Never Used Second Hand Smoke Exposure: No Are you DNR?: No Advance Directives: No Advance Directives Information Provided: Yes Advance Directives on File: No Recently lost weight without trying: No Current occupational status: retired Meds Allergies Allergy/AdvReac Type Severity Reaction Status Date / Time prochlorperazine Allergy Severe N/V Verified 01/14/22 09:23 [From COMPAZINE] SEIZURES, 1950's Home Medications Medication Instructions Recorded Confirmed Last Taken Type cholecalciferol (vitamin D3) 25 25 mcg PO DAILY 08/18/20 01/14/22 Unknown History mcg (1,000 unit) capsule cyanocobalamin (vitamin B-12) 1,000 mcg PO 2XW cap 06/12/21 01/14/22 Unknown History 1,000 mcg capsule folic acid 800 mcg tablet 0.8 mg PO 2XW tab 06/12/21 01/14/22 Unknown History azelaic acid 15 % topical gel 1 appl TOPICAL BID 10/16/21 12/13/21 Unknown History omeprazole 20 mg capsule,delayed 20 mg PO BID 11/19/21 01/14/22 Unknown History release Exam Exam Date and Time: January 14, 2022 1215 Height,Weight and Vital Signs: Height 5 ft 8 in Weight 75.75 kg Pertinent Lab Results Pertinent Lab Results: Laboratory Tests 09/23/21 09/23/21 13:22 13:22 WBC 6.1 Hgb 15.9 Hct 45.4 Plt Count 158 L Sodium 139 Potassium 4.3 Chloride 106 Carbon Dioxide 25 BUN 14 Creatinine 0.70 Narrative Narrative: EKG 11/2021 sinus bradycardia at 53 beats per minute with LVH with left anterior fascicular block, unchanged from before ECHO 11/2021 Conclusions: - The left ventricular systolic function is normal.? The ? calculated ejection fraction is 64% by biplane method. ? - There is mild to moderate tricuspid valve regurgitation. ? ? Assessment and Plan Assessment Anesthesia Assessment: Chart Reviewed Final Anesthetic Review Family History of Problems with Anesthesia: No History of Problems with Anesthesia: No Documented by User: Raina Garcia MD 01/16/22 09:17 [facility] Past Medical History Medical History Hepatitis History of torn meniscus of right knee Hypercholesterolemia Impaired glucose tolerance Paroxysmal atrial fibrillation Seizures SVT (supraventricular tachycardia) Thrombocytopenia Vitamin D deficiency Family History Family History Father Medical history unknown Mother Medical history unknown Surgical History Surgical History Carpal tunnel syndrome History of left hip replacement Hx of colonoscopy S/P arthroscopic surgery of right knee Social History Social History Housing: House Are you a primary health care technician to a significant other at home: No Do you presently have visiting nurse or other home services: No Alcohol intake: current Alcohol intake frequency: does not drink Patient Tobacco Use Status: Never used Tobacco e-Cigarette/Vaping Use: Never Used Second Hand Smoke Exposure: No Are you DNR?: No Advance Directives: No Advance Directives Information Provided: Yes Advance Directives on File: No Recently lost weight without trying: No Current occupational status: retired Meds Allergies Allergy/AdvReac Type Severity Reaction Status Date / Time prochlorperazine Allergy Severe N/V Verified 01/14/22 09:23 [From COMPAZINE] SEIZURES, 1950's Home Medications Medication Instructions Recorded Confirmed Last Taken Type cholecalciferol (vitamin D3) 25 25 mcg PO DAILY 08/18/20 01/14/22 Unknown History mcg (1,000 unit) capsule cyanocobalamin (vitamin B-12) 1,000 mcg PO 2XW cap 06/12/21 01/14/22 Unknown History 1,000 mcg capsule folic acid 800 mcg tablet 0.8 mg PO 2XW tab 06/12/21 01/14/22 Unknown History azelaic acid 15 % topical gel 1 appl TOPICAL BID 10/16/21 12/13/21 Unknown History omeprazole 20 mg capsule,delayed 20 mg PO BID 11/19/21 01/14/22 Unknown History release Exam Airway Mallampati Class: III TM Dist: >3cm Neck ROM: Full Loose/Missing/Broken Teeth: No Heart: RRR Lungs: CTA Assessment and Plan Assessment Anesthesia Assessment: Anesthesia Plan Discussed Final Anesthetic Review NPO: Yes ASA Class: III Final Preanesthetic Review: Meds/Allgs Chart Reviewed, Consent Obtained/Reviewed and Anes Risks/Benef Reviewed Patient Risk: Intermediate Procedure Risk: Low Anesthetic Plan Anesthetic Plan: MAC: Disposition: Standard PACU
--- NOTE | ~2022-01-16 | XR_ITS ---
EXAMINATION: XR ABDOMEN KUB CLINICAL INDICATION: Left renal stone COMPARISON: Ultrasound 11/06/2021. CT abdomen 05/23/2021 TECHNIQUE: 2 views of the abdomen. FINDINGS: 4.5 mm calcification projected over the expected region of the renal fossa, probable left renal calculus. No additional renal calculi are seen. Bowel gas and stool limits evaluation. No calculi evident along the expected course of the ureters. Phleboliths in the right pelvis. Left hip arthroplasty. Spinal degeneration. XR/XR KUB IMPRESSION: Probable 4.5 mm left renal calculus. No additional calculi identified. Bowel gas and stool limits evaluation.
[2022-01-16 07:42] VITALS: BP 137/69; PULSE 50; RESP 18; TEMP 36.6; O2SAT 95
[2022-01-16] MEDS: Lactated Ringers 1,000 ML 100 ML IVCONT (08:25)
[2022-01-16] MEDS: Acetaminophen 325 MG TABLET 650 MG PO (08:25)
--- NOTE | 2022-01-16 08:31 | MHC.SHP ---
Pre-Procedural Eval Section A Date of Service: 01/16/22 The patient is an INPATIENT: No Changes since office visit: No Cold of Flu in the past 2 weeks, No New Medical Problems, No Changes in Medication and No Patient answered all questions The History & Physical has been completed within 30 days and I have reviewed it.: No Section B Chief Complaint: kidney stone Details of Present Illness: left renal stone Relevant Social History: None Present Medications: see Short Stay Collaborative assessment Medical History: No relevant PMH History of Previous Operations: Relevant previous surgery/procedure and date(s) Allergies: Allergies Allergy/AdvReac Type Severity Reaction Status Date / Time prochlorperazine Allergy Severe N/V Verified 01/14/22 09:23 [From COMPAZINE] SEIZURES, 1950's Review of Systems Sugical H&P ROS: Negative: Constitution, Cardiovascular, Respiratory, Neurological, Psychiatric, Hem-Onc, Allergic/Immunologic, Gastrointestinal, Genitourinary, Musculoskeletal, Integumentary, Endocrine and Eyes/Ears/Nose/Throat Exam Surgical H&P Exam: Normal: HEENT, Normal: Heart, Normal: Lungs, Normal: Extremities, Normal: Abdomen, Normal: Skin and Normal: Neurological Plan Diagnosis/Plan: Unchanged (left eswl) I have reviewed the history and physical and performed a pertinent physical examination on my patient. No changes have occurred unless specified.
--- NOTE | 2022-01-16 09:35 | W.PM.OPN ---
Operative Note Operative Note Date of Service: 01/16/22 Narrative: PreOperative Diagnosis: left Renal stones Post Operative Diagnosis: left Renal stones Procedure: left ESWL Surgeon: Dr Aiden Murcia Anesthesia: mac/sedation Indications for procedure: The patient understands ESWL may be a staged procedure and subsequent intervention may be required based on imaging after ESWL. They also understand there is a risk of bleeding to the kidney, infection, damage to adjacent organs, and stone migration following the procedure. - Imaging 6mm lower pole Procedure: After informed consent was verified the patient was brought to the operating room and placed in a supine position. Anesthesia was performed per protocol. Safety pause time-out was performed. Imaging was displayed in the room and laterality confirmed. ESWL was performed. The 1st 500 shocks were performed at 60 hertz. These were performed with increasing power. Once maximum power was reached the rate was increased to 180 hertz. A total of 2500 shocks were given. Targetted imaging with ultrasound/fluoroscopy showed stone smudging suggestive of disintegration. The patient tolerated the procedure well and was transferred to the recovery area upon completion. Post procedure imaging will be organized. There was no evidence for flank discoloration.
[2022-01-16 09:55] VITALS: BP 111/59; PULSE 48; RESP 20; TEMP 36.2; O2SAT 100
[2022-01-16 10:10] VITALS: BP 122/62; PULSE 49; RESP 98; TEMP 36.5; O2SAT 98
== END 2022-01-16 10:47 | disposition home or self-care (01) ==
PROVIDERS: PCP Internal Medicine; Visit Provider Urology
PROC: (CPT 50590; principal; 2022-01-16 09:10)
DX: N20.0 Calculus of kidney (principal); I48.0 Paroxysmal atrial fibrillation; I47.1 Supraventricular tachycardia; E78.00 Pure hypercholesterolemia, unspecified; R73.02 Impaired glucose tolerance (oral); E55.9 Vitamin D deficiency, unspecified; D69.6 Thrombocytopenia, unspecified; R56.9 Unspecified convulsions; Z79.01 Long term (current) use of anticoagulants; Z79.899 Other long term (current) drug therapy; Z96.642 Presence of left artificial hip joint; Z88.8 Allergy status to other drugs, medicaments and biological substances
CPT/HCPCS: 50590; 74018; J2250; J3010

== ENCOUNTER 2022-01-23 10:24 | Outpatient (REF) | payer MEDICARE, SELFPAY ==
--- NOTE | ~2022-01-23 | US_ITS ---
EXAMINATION: US RETROPERITONEAL LIMITED (RENAL ONLY) CLINICAL INFORMATION: Calculus of kidney. COMPARISON: X-ray KUB 01/16/2022. Renal ultrasound 11/06/2021. CT abdomen and pelvis 09/23/2021. Ultrasound abdomen complete 10/30/2017. TECHNIQUE: Real-time imaging of the kidneys. FINDINGS: RIGHT KIDNEY: 11.0 x 5.0 x 5.2 cm (SAG x AP x TRV). The kidney is normal in size, contour, and echogenicity. Renal cortical thickness is normal. No calculi or focal parenchymal lesions. No hydronephrosis. LEFT KIDNEY: 11.6 x 5.7 x 5.3 cm (SAG x AP x TRV). The kidney is normal in size, contour, and echogenicity. Renal cortical thickness is normal. No calculi or focal parenchymal lesions. No hydronephrosis. US/US renal BI IMPRESSION: Unremarkable sonographic appearance of the kidneys. No renal calculi identified bilaterally.
== END 2022-01-23 10:25 | disposition home or self-care (01) ==
LOC: HO.HMGCX 10:24
PROVIDERS: Visit Provider Urology
DX: N20.0 Calculus of kidney (principal)
CPT/HCPCS: 76775

== ENCOUNTER → 2022-02-05 11:09 | Outpatient (BNVA) | payer MEDICARE, SELFPAY | PROVIDERS: PCP Internal Medicine; Visit Provider Urology | DX: Z48.816 Encounter for surgical aftercare following surgery on the genitourinary system (principal) | CPT/HCPCS: 99212; Q3014 ==

== ENCOUNTER → 2022-05-28 09:23 | Outpatient (BNVA) | payer MEDICARE, SELFPAY | PROVIDERS: PCP Internal Medicine; Referring Provider Internal Medicine; Visit Provider Internal Medicine Cardiovascular Disease | DX: I48.0 Paroxysmal atrial fibrillation (principal); I47.1 Supraventricular tachycardia; R00.1 Bradycardia, unspecified | CPT/HCPCS: 93005; 99212 ==

== ENCOUNTER 2022-06-11 09:31 | Outpatient (REF) | payer MEDICARE, SELFPAY ==
[2022-06-11 11:28] LABS: MANUAL DIFF FLAG NO
[2022-06-11 11:35] LABS: Basophils Percent Auto 0.6 % (0-2); Eosinophils Absolute Auto 0.1 X10*3/uL (0.0-0.4); Eosinophils Percent Auto 1.4 % (0-4); Hematocrit 44.3 % (42.0-52.0); Hemoglobin 15.3 g/dl (14.0-18.0); Imm Gran Abs Auto 0.01 X10*3/uL (0.00-0.03); Imm Gran Pct Auto 0.3 % (0.0-0.4); Lymphocytes Absolute Auto 1.3 X10*3/uL (1.2-4.9); Mean Corpuscular HGB Conc 34.5 g/dl (31.0-36.0); Mean Corpuscular Hemoglobin 33.3 pg (27.0-33.0); Mean Corpuscular Volume 96.3 fL (80.0-98.0); Mean Platelet Volume 11.7 fL (9.4-12.4); Monocytes Absolute Auto 0.3 X10*3/uL (0.1-1.2); Monocytes Percent Auto 9.1 % (2-11); Neutrophils Percent Auto 53.6 % (45-73); Platelet Count 151 X10*3/uL (160-400); Red Cell Distribution Width 12.9 % (11.0-16.0); White Blood Count 3.6 X10*3/uL (4.8-10.8)
[2022-06-11 11:46] LABS: Alanine Aminotransferase 24 U/L (0-40); Albumin Level 4.4 g/dL (3.5-5.0); Alkaline Phosphatase 41 U/L (39-117); Anion Gap 11 (12-20); Aspartate Amino Transferase 25 U/L (5-37); Bilirubin Total 1.5 mg/dL (0.0-1.0); Blood Urea Nitrogen 15 mg/dL (9-16); Calcium 9.2 mg/dL (8.4-10.2); Carbon Dioxide 27 mmol/L (22-29); Chloride 103 mmol/L (96-108); Cholesterol 190 mg/dL; Estimated Glomerular Filt Rate > 60; Glucose Random 98 mg/dL (60-115); HDL Cholesterol 64 mg/dL; LDL Cholesterol Calculated 116 mg/dl; Potassium 4.3 mmol/L (3.3-5.1); Sodium 137 mmol/L (135-145); Total Protein 6.9 g/dL (6.5-8.0); Triglycerides 50 mg/dL
[2022-06-11 12:14] LABS: Thyroid Stimulating Hormone 1.14 uIU/mL (0.32-4.0)
[2022-06-11 12:17] LABS: Folate 13.1 ng/mL (> or = 4.0); Vitamin B12 547 pg/mL (200-900)
== END 2022-06-11 09:32 | disposition home or self-care (01) ==
LOC: HO.HMGCLDS 09:31
PROVIDERS: PCP Internal Medicine; Visit Provider Internal Medicine
DX: N20.0 Calculus of kidney (principal); E78.00 Pure hypercholesterolemia, unspecified
CPT/HCPCS: 36415; 80053; 80061; 82607; 82746; 83735; 84439; 84443; 85025

== ENCOUNTER 2022-07-29 08:47 | Outpatient (REF) | payer MEDICARE, SELFPAY ==
--- NOTE | ~2022-07-29 | US_ITS ---
EXAMINATION: US RETROPERITONEAL LIMITED (RENAL ONLY) CLINICAL INFORMATION: Calculus of kidney. COMPARISON: Ultrasound retroperitoneal limited (renal only) 01/23/2022. CT abdomen and pelvis without contrast 09/23/2021. TECHNIQUE: Real-time imaging of the kidneys. FINDINGS: RIGHT KIDNEY: 11.3 x 4.7 x 5.5 cm (SAG x AP x TRV). The kidney is normal in size, contour, and echogenicity. Renal cortical thickness is normal. No calculi or focal parenchymal lesions. No hydronephrosis. LEFT KIDNEY: 9.8 x 5.9 x 4.8 cm (SAG x AP x TRV). The kidney is normal in size, contour, and echogenicity. Renal cortical thickness is normal. No focal parenchymal lesions or hydronephrosis. 3 mm nonobstructing upper pole renal stone. This is new from prior ultrasound. US/US renal BI IMPRESSION: New 3 mm nonobstructing left upper pole renal stone..
== END 2022-07-29 08:48 | disposition home or self-care (01) ==
LOC: HO.HMGCX 08:47
PROVIDERS: PCP Internal Medicine; Visit Provider Urology
DX: N20.0 Calculus of kidney (principal)
CPT/HCPCS: 76775

== ENCOUNTER → 2022-08-29 13:54 | Outpatient (BNVA) | payer MEDICARE, SELFPAY | PROVIDERS: PCP Internal Medicine; Visit Provider Urology | DX: N20.0 Calculus of kidney (principal); N40.0 Benign prostatic hyperplasia without lower urinary tract symptoms | CPT/HCPCS: 51798; 99212 ==

== ENCOUNTER 2022-10-29 16:05 | Outpatient (REF) | payer MEDICARE, SELFPAY ==
--- NOTE | ~2022-10-29 | XR_ITS ---
EXAMINATION: XR WRIST, LEFT CLINICAL INFORMATION: Left wrist pain COMPARISON: Left wrist radiographs 04/10/2016 TECHNIQUE: PA, lateral, and oblique views of the left wrist. FINDINGS: Chronic ununited scaphoid waist fracture. Progression in radioscaphoid and midcarpal compartment osteoarthropathy with progressive joint space narrowing, subchondral sclerosis, and osteophyte formation. Large subchondral cyst in the distal radius/scaphoid fossa. Widening of the scapholunate interval. No acute fracture or dislocation. Pronator fat pad is intact. Soft tissue swelling along the dorsal wrist. Small osteophytes the first CMC joint consistent with mild osteoarthritis. 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 No acute fracture or dislocation identified.
== END 2022-10-29 16:06 | disposition home or self-care (01) ==
LOC: HO.XRAY 16:05
PROVIDERS: PCP Internal Medicine; Visit Provider Internal Medicine
DX: M25.532 Pain in left wrist (principal)
CPT/HCPCS: 73100

== ENCOUNTER 2022-11-21 09:26 | Outpatient (REF) | payer MEDICARE, SELFPAY ==
[2022-11-21 11:19] LABS: MANUAL DIFF FLAG NO
[2022-11-21 11:28] LABS: Basophils Percent Auto 0.6 % (0-2); Eosinophils Absolute Auto 0.1 X10*3/uL (0.0-0.4); Eosinophils Percent Auto 1.9 % (0-4); Hematocrit 45.4 % (42.0-52.0); Hemoglobin 15.6 g/dl (14.0-18.0); Imm Gran Abs Auto 0.02 X10*3/uL (0.00-0.03); Imm Gran Pct Auto 0.4 % (0.0-0.4); Lymphocytes Absolute Auto 1.4 X10*3/uL (1.2-4.9); Lymphocytes Percent Auto 26.4 % (20-40); Mean Corpuscular HGB Conc 34.4 g/dl (31.0-36.0); Mean Corpuscular Hemoglobin 33.9 pg (27.0-33.0); Mean Corpuscular Volume 98.7 fL (80.0-98.0); Monocytes Absolute Auto 0.5 X10*3/uL (0.1-1.2); Monocytes Percent Auto 10.1 % (2-11); Neutrophils Absolute Auto 3.2 x10*3/uL (2.0-8.3); Neutrophils Percent Auto 60.6 % (45-73); Platelet Count 161 X10*3/uL (160-400); Red Cell Distribution Width 12.5 % (11.0-16.0); White Blood Count 5.2 X10*3/uL (4.8-10.8)
[2022-11-21 11:35] LABS: Alanine Aminotransferase 23 U/L (0-40); Albumin Level 4.1 g/dL (3.5-5.0); Alkaline Phosphatase 45 U/L (39-117); Anion Gap 10 (12-20); Aspartate Amino Transferase 25 U/L (5-37); Bilirubin Total 1.3 mg/dL (0.0-1.0); Blood Urea Nitrogen 15 mg/dL (9-16); Calcium 9.3 mg/dL (8.4-10.2); Carbon Dioxide 28 mmol/L (22-29); Chloride 106 mmol/L (96-108); Estimated Glomerular Filt Rate > 60; Glucose Random 96 mg/dL (60-115); Potassium 4.5 mmol/L (3.3-5.1); Sodium 139 mmol/L (135-145); Total Protein 6.6 g/dL (6.5-8.0)
== END 2022-11-21 09:27 | disposition home or self-care (01) ==
LOC: HO.HMGCLDS 09:26
PROVIDERS: PCP Internal Medicine; Visit Provider Internal Medicine
DX: I48.0 Paroxysmal atrial fibrillation (principal)
CPT/HCPCS: 36415; 80053; 85025

== ENCOUNTER → 2022-12-02 08:47 | Outpatient (BNVA) | payer MEDICARE, SELFPAY | PROVIDERS: PCP Internal Medicine; Referring Provider Internal Medicine; Visit Provider Internal Medicine Cardiovascular Disease | DX: I48.0 Paroxysmal atrial fibrillation (principal); I47.1 Supraventricular tachycardia; R00.1 Bradycardia, unspecified | CPT/HCPCS: 93005; 99212 ==

== ENCOUNTER → 2022-12-25 07:52 | Outpatient (REF) | payer MEDICARE, OTHER, SELFPAY ==
--- NOTE | 2022-12-25 08:00 | CA_ITS ---
Transthoracic Echocardiogram Patient (Last, First, Middle): Tobias Morejon E Gender: Male Date of : 1950 Age: 72 Procedure Date: 12/25/2022 Procedure Type: Transthoracic Echocardiogram Location: OP Height: 172.72 cm Weight: 74.39 kg BSA: 1.88 m2 Heart Rate: bpm BP: 120 / 62 mmHg Cloth Dye Range Operator: TO Referring MD: Jerry Turner MD Symptoms: I48.0 - Paroxysmal atrial fibrillation Study Quality: Fair ECG Rhythm: Sinus Conclusions: - The left ventricular systolic function is normal. The calculated ejection fraction is 59% by biplane method. - The left atrium is moderately dilated. - There is mild to moderate tricuspid valve regurgitation. - Mild pulmonary hypertension is present. Findings Left Ventricle Normal left ventricular cavity size. There is normal left ventricular wall thickness. The left ventricular systolic function is normal. The calculated ejection fraction is 59% by biplane method. There is no evidence of regional wall motion abnormalities. Diastolic function is normal for age. LV peak GLS -18.8%. Right Ventricle Mildly increased right ventricular cavity size. There is normal right ventricular systolic function. Atria The left atrium is moderately dilated. The right atrium is normal in size. Aortic Valve There is a normal trileaflet aortic valve. There is no aortic valve stenosis. There is no aortic valve regurgitation. Mitral Valve The mitral valve appears normal. There is trace mitral valve regurgitation. There is no mitral valve stenosis. Pulmonic Valve The pulmonic valve is likely normal. Tricuspid Valve There is mild to moderate tricuspid valve regurgitation. Mild pulmonary hypertension is present. Great Vessels The asc aorta is normal in size. Venous The inferior vena cava is mildly dilated and collapses greater than 50% with inspiration. Pericardium/Pleural There is no evidence of pericardial effusion. Prior Study Comparison Changes noted compared to prior study dated: 11/12/2021. Left atrium possibly larger, but cannot exclude technical reasons for difference. Slight change in RVSP. Measurements 2D Linear Measurements IVSd: 0.95 0.6-0.9/0.6-1.0 cm LVIDd: 4.29 3.9-5.3/4.2-5.9 cm LVIDd Index: 2.28 2.4-3.2/2.2-3.1 cm/m2 LVIDs: 2.99 2.0-3.6 cm LVPWd: 0.98 0.7-1.1 cm LA Diam: 2.90 2.7-3.8/3.0-4.0 cm LAIDs Index: 1.54 1.5-2.3 cm/m2 LV Mass: 167.43 67-162/88-224 g LV Mass Index: 89.06 43-95/49-115 g/m2 LVOT Diam: 2.00 3.0+(-)1.3 cm 2D Systolic Function EF 4C: 58.50 >55% EF 2C: 60.60 >55% EF BiP: 58.50 >55% Mitral Valve MV Pk E: 0.81 MV PK A: 0.91 MV Decel Time: 270.00 E/A: 0.90 E'Lateral: 8.49 E'Medial: 5.22 E/E' Med: 15.60 E/E' Lat: 9.60 PHT: 79.00 MVA PHT: 2.78 Decel [place]: 3.02 Aortic Valve AoV Pk Tino: 1.44 AoV Mn Tino: 1.07 AoV VTI: 0.36 AoV Pk Grad: 8.00 Aov Mn Grad: 5.00 JAMESON Cont.VTI: 2.26 LVOT LVOT Pk Tino: 1.07 LVOT Mn Tino: 0.77 LVOT VTI: 0.26 LVOT Pk Grad: 5.00 LVOT Mn Grad: 3.00 LVOT Diam: 2.00 LVOT Area: 3.14 Diastolic Function MV Pk E: 0.81 MV Pk A: 0.91 E/A: 0.90 E'Medial: 5.22 E/E' Med: 15.60 E' Laterial: 8.49 E/E' Lat: 9.60 Right Ventricle TAPSE (mm): 31.70 TVS' Tino: 13.10 Tricuspid Valve TR Pk Tino: 2.96 TR Pk Grad: 35.00 RA Press: 8.00 RVSP: 43.00 Great Vessels Aorta Sinus of Valsalva: 3.36 2.0-3.5 cm Ao Asc: 3.50 2.1-3.4 cm Updated in Other Vendor System with Status of Final Tobi Gomez MD electronically signed on 12/27/2022 3:33:24 PM with status of Final
== END ==
LOC: HO.CARD 07:52
PROVIDERS: PCP Internal Medicine; Visit Provider Internal Medicine Cardiovascular Disease
DX: I48.0 Paroxysmal atrial fibrillation (principal)
CPT/HCPCS: 93306; 93356

== ENCOUNTER 2023-02-19 08:48 | Outpatient (REF) | payer MEDICARE, OTHER, SELFPAY ==
--- NOTE | ~2023-02-19 | US_ITS ---
EXAMINATION: US RETROPERITONEAL LIMITED (RENAL ONLY) CLINICAL INFORMATION: Calculus of kidney. COMPARISON: Renal ultrasound 07/29/2022 and 01/23/2022. TECHNIQUE: Real-time imaging of the kidneys. FINDINGS: RIGHT KIDNEY: 10.5 x 5.6 x 6.3 cm (SAG x AP x TRV). The kidney is normal in size, contour, and echogenicity. Renal cortical thickness is normal. No calculi or focal parenchymal lesions. No hydronephrosis. LEFT KIDNEY: 11.4 x 4.9 x 5.6 cm (SAG x AP x TRV). The kidney is normal in size, contour, and echogenicity. Renal cortical thickness is normal. No calculi or focal parenchymal lesions. No hydronephrosis. Unchanged 3 mm echogenic focus in the upper left kidney, equivocal for kidney stone. US/US renal BI IMPRESSION: Stable echogenic focus in the upper left kidney. On today's study there is no twinkle or shadowing. This is equivocal for a small calculus. No hydronephrosis.
== END 2023-02-19 08:49 | disposition home or self-care (01) ==
LOC: HO.HMGCX 08:48
PROVIDERS: PCP Internal Medicine; Visit Provider Urology
DX: N20.0 Calculus of kidney (principal)
CPT/HCPCS: 76775

== ENCOUNTER → 2023-03-06 08:21 | Outpatient (BNVA) | payer MEDICARE, SELFPAY | PROVIDERS: PCP Internal Medicine; Visit Provider Urology | DX: N20.0 Calculus of kidney (principal) | CPT/HCPCS: 99212 ==

== ENCOUNTER 2023-06-05 08:40 | Outpatient (AMB) | payer MEDICARE, SELFPAY ==
--- NOTE | 2023-06-05 08:46 | A.OFFVIS_ITS ---
Intake Vital Signs 06/05/23 08:47 Height 5 ft 8 in Weight 167 lb 8.821 oz BMI 25.5 BP 120/74 Blood Pressure Location Lt brachial Position Sitting Pulse 55 Intake Visit Reasons: 6M w/EKG after echo Intake Note: 6 month follow-up with ekg after echo feeling good Investor Relations Specialist Required: No Allergies prochlorperazine [From COMPAZINE] Allergy (Severe, Verified 03/06/23 08:22) N/V SEIZURES, 1950's Medication List - Last Reconciled 06/05/23 by Jerry Turner MD azelaic acid 15% 1 appl topical BID cholecalciferol (vitamin D3) 25 mcg PO DAILY cyanocobalamin (vitamin B-12) 1,000 mcg PO 2XW flecainide 50 mg PO BID fluticasone propionate 50 mcg/actuation (Flonase Allergy Relief) 2 sprays intranasal DAILY folic acid 0.8 mg PO 2XW metoprolol succinate ER 25 mg PO DAILY 90 days pyridoxine (vitamin B6) 50 mg PO DAILY 90 days rivaroxaban (Xarelto) 20 mg PO DAILY HPI HPI Comments History of Present Illness Details Tobias comes for follow-up. He has been doing well. He has increased stress related to his personal family. However he has not had any recurrent episodes of atrial fibrillation or SVT. Takes all his medications. No lightheadedness, syncope. No bleeding issues or neurologic events. Denies any exertional chest pain or shortness of breath. [facility] Medical History Hepatitis History of torn meniscus of right knee Hypercholesterolemia Impaired glucose tolerance Paroxysmal atrial fibrillation Seizures SVT (supraventricular tachycardia) Thrombocytopenia Vitamin D deficiency Surgical History Carpal tunnel syndrome History of left hip replacement Hx of colonoscopy S/P arthroscopic surgery of right knee Family History Father Medical history unknown Mother Medical history unknown Social History Housing: House Are you a primary career consultant to a significant other at home: No Do you presently have visiting nurse or other home services: No Alcohol intake: current Alcohol intake frequency: a few times a week Alcohol type: wine Patient Tobacco Use Status: Never used Tobacco e-Cigarette/Vaping Use: Never Used Second Hand Smoke Exposure: No Current occupational status: retired Cognitive needs: No Hearing needs: No Vision needs: No Review of Systems Const Denies chills, Denies fatigue, Denies fever(s), Denies frequent falls, Denies weakness, Denies weight gain and Denies weight loss ENT Denies dizziness Card Denies chest pain, Denies leg edema, Denies lightheadedness, Denies palpitations, Denies dyspnea, Denies dyspnea on exertion, Denies orthopnea and Denies other (loss of consciousness) Resp Denies cough, Denies dyspnea and Denies dyspnea on exertion GI Denies hematochezia and Denies change in stool character Musc Denies abnormal gait, Denies muscle weakness, Denies numbness, Denies radiating pain into limb and Denies tingling Neuro Denies abnormal gait, Denies dizziness, Denies frequent falls, Denies numbness, Denies tingling and Denies weakness Endo Denies fatigue and Denies palpitations Physical Exam Vital Signs: Last Vital Signs Pulse 55 06/05/23 08:47 BP 120/74 06/05/23 08:47 BMI result Body Mass Index 25.5 Const General: cooperative, comfortable, no acute distress, alert, awake and well groomed Nutritional Appearance: average body habitus Orientation/consciousness: patient oriented x3 Limitations: no limitations Neck Neck: Yes trachea midline, Yes supple and Yes no JVD Resp Effort & Inspection: normal respiratory effort Auscultation: clear to auscultation bilaterally Cardio Jugular venous distension: no JVD Palpation: normal PMI Rate: regular rate Rhythm: regular rhythm Heart sounds: S1 normal heart sound present, S2 normal heart sound present, no click, no gallops, no murmurs and no rubs GI Auscultation: normal bowel sounds Skin General skin exam: no rashes or lesions noted Neuro General: patient oriented x3 and no focal motor deficits Extrem General: Yes no clubbing, cyanosis or edema Psych Appearance: grossly normal Office Procedures EKG Details: EKG shows normal sinus rhythm with left anterior fascicular block with LVH [id number], Complete Assessment & Plan Assessment & Plan (1) Paroxysmal atrial fibrillation: Code(s): I48.0 - Paroxysmal atrial fibrillation Plan: Highly symptomatic paroxysmal atrial fibrillation in this elderly gentleman has done well with rhythm control approach will continue pursue rhythm control approach. Continue current flecainide therapy. Requires concomitant low-dose metoprolol therapy. Heart rate on the slower side but no symptoms related to it. Continue full oral anticoagulation, currently on Xarelto 20 mg daily. Semi annual renal function test should be performed. Continue risk factor modification. Avoidance of stimulants was discussed. Stress mitigation strategies advised. Maintain heart healthy lifestyle. Will follow up in the clinic in 6 months time, sooner p.r.n.. Thank you for allowing me to partake in his care Coding Level of Care Code Est Pt Level 3 (97036) Diagnoses Paroxysmal atrial fibrillation I48.0 CPT Codes EKG - CPT: 07676-[id number], Complete ([id number])
[2023-06-05 08:47] VITALS: BP 120/74; PULSE 55; BMI 25.5
== END 2023-06-05 09:19 | disposition home or self-care (01) ==
PROVIDERS: PCP Internal Medicine; Referring Provider Internal Medicine; Visit Provider Internal Medicine Cardiovascular Disease
DX: I48.0 Paroxysmal atrial fibrillation (principal)
CPT/HCPCS: 93010; 99213

== ENCOUNTER → 2023-06-05 08:40 | Outpatient (BNVA) | payer MEDICARE, SELFPAY | PROVIDERS: PCP Internal Medicine; Referring Provider Internal Medicine; Visit Provider Internal Medicine Cardiovascular Disease | DX: I48.0 Paroxysmal atrial fibrillation (principal) | CPT/HCPCS: 93005; 99212 ==

== ENCOUNTER 2023-06-17 13:55 | Outpatient (AMB) | payer MEDICARE, OTHER, SELFPAY ==
[2023-06-17 13:55] VITALS: BP 130/74; PULSE 50; O2SAT 99; BMI 25.7
--- NOTE | 2023-06-17 13:55 | A.OFFVIS_ITS ---
Intake Vital Signs 06/17/23 13:55 Height 5 ft 8 in Weight 169 lb BMI 25.7 BP 130/74 Blood Pressure Location Lt brachial Position Sitting Pulse 50 Pulse Source Pulse Oximeter Temp Source Skin Pulse Oximetry (%) 99 Oxygen Delivery Method Room Air Intake Visit Reasons: AWV Intake Note: Patient is here for an Annual Wellness Visit. 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 Required: No Allergies prochlorperazine [From COMPAZINE] Allergy (Severe, Verified 06/17/23 14:18) N/V SEIZURES, 1950's Medication List - Last Reconciled 06/17/23 by MITESH Davis azelaic acid 15% 1 appl topical BID cholecalciferol (vitamin D3) 25 mcg PO DAILY cyanocobalamin (vitamin B-12) 1,000 mcg PO 2XW flecainide 50 mg PO BID fluticasone propionate 50 mcg/actuation (Flonase Allergy Relief) 2 sprays intranasal DAILY folic acid 0.8 mg PO 2XW metoprolol succinate ER 25 mg PO DAILY 90 days pyridoxine (vitamin B6) 50 mg PO DAILY 90 days rivaroxaban (Xarelto) 20 mg PO DAILY Fall Risk Assessment Fall risk assessment: 1 Fall in past year Date Fall Risk Assessed: 06/17/23 HPI AWV HPI Details Patient is a 72-year-old male presents today for subsequent wellness visit. Patient of Dr. Nelson. Today we discussed patient's need for diabetes screening and prostate cancer screening. Up-to-date with immunizations. [place] of care was reviewed with the patient and he was provided with a screening schedule. Healthcare proxy is on file and patient was provided with a MOLST form. [facility] Medical History (Updated 06/17/23 @ 15:41 by MITESH Davis) COVID-19 virus infection Hepatitis History of torn meniscus of right knee Hypercholesterolemia Impaired glucose tolerance Medicare annual wellness visit, initial Paroxysmal atrial fibrillation Seizures SVT (supraventricular tachycardia) Thrombocytopenia Vitamin D deficiency Surgical History (Updated 06/17/23 @ 15:41 by MITESH Davis) Carpal tunnel syndrome History of left hip replacement Hx of colonoscopy S/P arthroscopic surgery of right knee Family History Father Medical history unknown Mother Medical history unknown Social History (Reviewed 06/17/23 @ 14:18 by ROE Davis Housing: House Are you a primary child day care center worker to a significant other at home: No Do you presently have visiting nurse or other home services: No Alcohol intake: current Alcohol intake frequency: a few times a week Alcohol ty pe: wine Patient Tobacco Use Status: Never used Tobacco e-Cigarette/Vaping Use: Never Used Second Hand Smoke Exposure: No Current occupational status: retired Cognitive needs: No Hearing needs: No Vision needs: No Questionnaire Medicare Wellness Checkup [age] What gender do you identify with?: male During the past 4 weeks, how much have you been bothered by emotional problems such as feeling anxious, depressed, irritable, sad or downhearted, and blue?: not at all During the past 4 weeks, has your physical & emotional health limited your social activities with family, friends, neighbors, or groups?: not at all During the past 4 weeks, how much bodily pain have you generally had?: no pain During the past 4 weeks, was someone available to help you if you needed & wanted help?: yes, as much as I wanted During the past 4 weeks, what was the hardest physical activity you could do for at least 2 minutes?: moderate Can you get to places out of walking distance without help? (For eg., can you travel alone on buses, taxis or drive your car?): Yes Can you go shopping for groceries or clothes without someone's help?: Yes Can you prepare your own meals?: Yes Can you do your housework without help?: Yes Because of any health problems, do you need the help of another person with your personal care needs such as eating, bathing, dressing or getting around the house?: No Can you handle your own money without help?: Yes During the past 4 weeks, how would you rate your health in general?: good During the past 4 weeks how have things been going for you?: pretty well Are you having difficulties driving your car?: no Do you always fasten your seat belt when you are in a car?: yes, usually During past 4 weeks, have you been bothered by the following: never: Sexual problems?, Trouble eating well?, Teeth or denture problems? and Problems using the telephone?, seldom: Tiredness or fatigue? and sometimes: Falling or dizzy when standing up (falls ) Have you fallen 2 or more times in the past year?: Yes Are you afraid of falling?: Yes Are you a smoker?: no During the past 4 weeks, how many drinks of wine, beer, or other alcoholic beverages did you have?: 2-5 drinks per week Do you exercise for about 20 minutes 3 or more times a week?: yes, most of the time Have you been given information to help with the following?: yes: Hazards in your house that might hurt you? and yes: Keeping track of your medications? How often do you have trouble taking medicines the way you have been told to take them?: I always take medicine as prescribed How confident are you that you can control & manage most of your health problems?: very confident What is your race?: White Mini Mental State Exam (MMSE) Orientation What is the (year) (season) (date) (day) (month)?: year, season, date, day and month Score Score: 5 Activity of Daily Living Bathing - sponge bath, tub bath or shower: receives no assistance (gets in/out by self, if usual bathing means Dressing - getting clothes from closets & drawers, including inner/outer garments & fasteners.: gets clothes & gets completely dressed without help Toileting - going to the 'toilet room' for urine/bowel elimination & cleaning self/arranging clothes: goes to toilet room, cleans self, arranges clothes without help Transfer: moves in & out of bed and chair without help (may use support object) Continence: controls urination/bowel movements completely by self Feeding: feeds self without help Total Score: 0 Information obtained from: patient Using telephone: independent Traveling: independent Shopping: independent Preparing meals: independent Housework: independent Taking medicine: independent Managing money: independent PHQ-9 Over the last 2 weeks, how often have you been bothered by any of the following problems? 1. Little interest or pleasure in doing things: not at all 2. Feeling down, depressed, or hopeless: not at all 3. Trouble falling or staying asleep, or sleeping too much: not at all 4. Feeling tired or having little energy: not at all 5. Poor appetite or overeating: not at all 6. Feeling bad about yourself - or that you are a failure or have let yourself or your family down: not at all 7. Trouble concentrating on things, such as reading the newspaper or watching television: not at all 8. Moving or speaking so slowly that other people could have noticed. Or the opposite - being so fidgety or restless that you have been moving around a lot more than usual: not at all 9. Thoughts that you would be better off or of hurting yourself in some way: not at all Total score: 0 Depression Screening Interpretation: Negative 82069 - PHQ-9 Billing: Yes Source: Developed by Drs. Vipul Espinoza, Aidee Ji, Marcello Harrison and colleagues, with an educational chepe from [employer]. RANDY-7 AMB Questionnaire RANDY-7 Date RANDY - 7 assessed: 01/08/23 Feeling nervous, anxious, or on edge: 0 = Not at all Not being able to stop or control worryin = Not at all Worrying too much about different things: 0 = Not at all Trouble relaxin = Not at all Being so restless that it is hard to sit still: 0 = Not at all Becoming easily annoyed or irritable: 0 = Not at all Feeling afraid as if something awful might happen: 0 = Not at all Total RANDY-7 score (0-4 normal; 5-9 mild; 10-14 moderate; 15-21 severe): 0 Source: Developed by Drs. Vipul Espinoza, Aidee Ji, Marcello Harrison and colleagues, with an educational chepe from [employer]. RANDY-7 Assessment Billing RANDY-7 Assessment Tool: RANDY-7 Assessment 14605 AUDIT C Alcohol Use Questionnaire (AUDIT-C) 1. How often do you have a drink containing alcohol?: 2-3 times a week 2. How many drinks containing alcohol do you have on a typical day when you are drinking?: 1 or 2 3. How often do you have six or more drinks on one occasion?: Never Total Score: 3 Score Reviewed/Action Taken: Yes Thrive Questionnaire Date Thrive assessed: 06/17/23 I am a: Patient What is your living situation today?: I have a steady place to live Within the past 12 months, did the food you bought not last and you didn't have the money to get more?: Never true Within the past 12 months, did you worry whether your food would run out before you got money to buy more?: Never true Do you have trouble paying for medicines?: No Do you have trouble getting transportation to medical appointments?: No Do you have trouble paying your heating and electricity bill?: No Do you have trouble taking care of your child, family member or friend?: No Do you have trouble with day-to-day activities such as bathing, preparing meals, shopping, managing finances, etc.?: No Currently or been in a relationship where the following occur: no concerns reported Physical Exam Vital Signs: Last Vital Signs Pulse 50 06/17/23 13:55 BP 130/74 06/17/23 13:55 Pulse Ox 99 06/17/23 13:55 Oxygen Delivery Method Room Air 06/17/23 13:55 BMI result Body Mass Index 25.7 Const General: cooperative and no acute distress Orientation/consciousness: patient oriented x3 HEENT Other: Whisper test: fail Neuro Other: Balance: Normal Get up and walk: unable to Romberg: negative Tandem gait: unable to General: patient oriented x3 Assessment & Plan Assessment & Plan (1) Screening for prostate cancer: Code(s): Z12.5 - Encounter for screening for malignant neoplasm of prostate (2) Medicare annual wellness visit, subsequent: Code(s): Z00.00 - Encounter for general adult medical examination without abnormal findings (3) Hypercholesterolemia: Code(s): E78.00 - Pure hypercholesterolemia, unspecified Plan: Low-cholesterol diet (4) Impaired glucose tolerance: Code(s): R73.02 - Impaired glucose tolerance (oral) Plan: Fasting blood work has been ordered (5) Paroxysmal atrial fibrillation: Code(s): I48.0 - Paroxysmal atrial fibrillation Plan: Continue to follow-up with cardiology Continue Xarelto and metoprolol Plan Keep appointment with PCP as scheduled or follow-up sooner as needed Orders: Orders Basic Metabolic Panel Fasting Today R73.02 - Impaired glucose tolerance (oral) Prostate Specific Antigen Today Z12.5 - Encounter for screening for malignant neoplasm of prostate Medications: Refilled fluticasone propionate 50 mcg/actuation (Flonase Allergy Relief) administer into each nostril 2 sprays intranasal DAILY 16 grams 0RF Quality Reporting (2020) Fall Risk Screening ([facility] 139) Last assessed Fall Risk: 06/17/23 Fall risk assessment: 1 Fall in past year Depression/Bipolar (159/160/161/177) PHQ-9: Total score: 0 Coding Level of Care Code Medicare Subsequent (G0439) Diagnoses Screening for prostate cancer Z12.5 Medicare annual wellness visit, subsequent Z00.00 Hypercholesterolemia E78.00 Impaired glucose tolerance R73.02 Paroxysmal atrial fibrillation I48.0 CPT Codes Advance Care Planning - Advance Care Planning discussion: On file, no changes ([id number]) Advance Care Planning - Time spent: 1-15 minutes, on File ([id number]) Additional Codes RANDY-7 Assessment Billing - RANDY-7 Assessment Tool: RANDY-7 Assessment 62688 ([id number]) Advance Care Planning Advance Care Planning discussion: On file, no changes Date of discussion: 06/17/23 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
== END 2023-06-17 14:34 | disposition home or self-care (01) ==
PROVIDERS: Visit Provider Nurse Practitioner Family
DX: Z00.00 Encounter for general adult medical examination without abnormal findings (principal); Z12.5 Encounter for screening for malignant neoplasm of prostate; E78.00 Pure hypercholesterolemia, unspecified; I48.0 Paroxysmal atrial fibrillation; R73.02 Impaired glucose tolerance (oral)
CPT/HCPCS: 1123F; G0439

== ENCOUNTER 2023-07-02 08:25 | Outpatient (REF) | payer MEDICARE, SELFPAY ==
[2023-07-02 12:11] LABS: Anion Gap 12 (12-20); Blood Urea Nitrogen 15 mg/dL (9-16); Calcium 9.1 mg/dL (8.4-10.2); Carbon Dioxide 28 mmol/L (22-29); Chloride 106 mmol/L (96-108); Cholesterol 178 mg/dL (<200); Estimated Glomerular Filt Rate > 60; Glucose Fasting 92 mg/dL (60-99); HDL Cholesterol 62 mg/dL (>40); LDL Cholesterol Calculated 108 mg/dL (<100); Potassium 4.6 mmol/L (3.3-5.1); Sodium 141 mmol/L (135-145); Triglycerides 44 mg/dL (<150)
[2023-07-02 12:30] LABS: Prostate Specific Antigen 3.39 ng/mL (<0.05-4.0)
[2023-07-02 12:32] LABS: TSH reflex Free T4 1.57 uIU/mL (0.32-4.0); Vitamin D 25-OH Total 55.3 ng/mL (>30)
[2023-07-02 12:45] LABS: Folate 7.8 ng/mL (> or = 4.0); Vitamin B12 730 pg/mL (200-900)
== END 2023-07-02 08:26 | disposition home or self-care (01) ==
LOC: HO.HMGCLDS 08:25
PROVIDERS: PCP Internal Medicine; Visit Provider Nurse Practitioner Family
DX: Z12.5 Encounter for screening for malignant neoplasm of prostate (principal); R73.02 Impaired glucose tolerance (oral); E55.9 Vitamin D deficiency, unspecified; E78.00 Pure hypercholesterolemia, unspecified
CPT/HCPCS: 36415; 80048; 80061; 82306; 82607; 82746; 84153; 84443

== ENCOUNTER 2023-07-10 08:22 | Outpatient (AMB) | payer MEDICARE, SELFPAY ==
[2023-07-10 08:33] VITALS: BP 148/82; PULSE 57; O2SAT 100; BMI 25.7
--- NOTE | 2023-07-10 08:33 | A.OFFPC_ITS ---
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: No Allergies prochlorperazine [From COMPAZINE] Allergy (Severe, Verified 07/10/23 08:34) N/V SEIZURES, 1950's Tobacco use date assessed: 07/10/23 Fall risk assessment: No Falls in past year Last assessed Fall Risk: 07/10/23 Dental Screening Dental Screen Date: 07/10/23 Did you have a dental visit in the last 12 months?: Yes Did you have a dental problem in the last 6 months where you did not have access to dental care?: No Was dental information given to patient?: Patient has dentist HPI 6m F/U HLD HPI Details 72-year-old male with atrial fibrillatio n impaired glucose tolerance hypercholesterolemia coming in for follow-up. Last seen in June 2022. Colonoscopy is up-to-date. Review of the notes patient was recently seen by the nurse practitioner last month for an annual well visit. Patient also follows up with Cardiology stress from personal family no recurrence of atrial fibrillation or SVT early on flecainide, metoprolol on anticoagulation semi annual renal function test. Last echocardiogram December 2022 The left ventricular systolic function is normal. The calculated ejection fraction is 59% by biplane method. - The left atrium is moderately dilated. - There is mild to moderate tricuspid va lve regurgitation. - Mild pulmonary hypertension is present . Patient also follows up with urology for a left renal stone having also post void leakage pelvic floor exercises recommended patient was given vitamin B6. Last ESWL was January 2022.. Patient also was seen by the nurse practitioner in January 2022 has had 2 falls and has been sent for physical therapy. 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 No acute fracture or dislocation identified.. Patient is here for follow-up. complains of hoarsness and states having mucus on the throat- advsied flonase and mucinex. [facility] Medical History (Updated 07/10/23 @ 08:38 by Tasha Nelson MD) COVID-19 virus infection Medicare annual wellness visit, initial Thrombocytopenia Vitamin D deficiency Seizures Hepatitis History of torn meniscus of right knee Hypercholesterolemia Impaired glucose tolerance Paroxysmal atrial fibrillation SVT (supraventricular tachycardia) Surgical History (Updated 06/17/23 @ 15:41 by MITESH Davis) Hx of colonoscopy Carpal tunnel syndrome S/P arthroscopic surgery of right knee History of left hip replacement Family History Father Medical history unknown Mother Medical history unknown Social History Housing: House Are you a primary healthcare financial analyst to a significant other at home: No Do you presently have visiting nurse or other home services: No Alcohol intake: current Alcohol intake frequency: a few times a week Alcohol type: wine Patient Tobacco Use Status: Never used Tobacco e-Cigarette/Vaping Use: Never Used Second Hand Smoke Exposure: No Current occupational status: retired Cognitive needs: No Hearing needs: No Vision needs: No Questionnaire Thrive Questionnaire Date Thrive assessed: 06/17/23 AUDIT C Alcohol Use Questionnaire (AUDIT-C) 1. How often do you have a drink containing alcohol?: 2-3 times a week 2. How many drinks containing alcohol do you have on a typical day when you are drinking?: 1 or 2 3. How often do you have six or more drinks on one occasion?: Never Total Score: 3 Score Reviewed/Action Taken: Yes RANDY-7 AMB Questionnaire RANDY-7 Date RANDY - 7 assessed: 01/08/23 Source: Developed by Drs. Vipul Espinoza, Adiee Ji, Marcello Harrison and colleagues, with an educational chepe from [employer]. Physical exam (Primary Care) Vital Signs: Oxygen Delivery Method Room Air 07/10/23 08:33 Tobacco/Smoking Status: Tobacco use Status Tobacco use date assessed 01/08/23 01/08/23 09:18 Patient Tobacco Use Status Never used Tobacco 01/08/23 09:01 e-Cigarette/Vaping Use Never Used 01/08/23 09:01 Thrive Assessment: Date of Thrive Assessment Date Thrive assessed 06/17/23 06/17/23 13:58 Const General: alert; No acute distress Eyes Conjunctivae: conjunctivae normal Resp Auscultation: clear to auscultation bilaterally Cardio Rate: regular rate Rhythm: regular rhythm GI Inspection: Yes normal to inspection Extrem General: Yes normal to inspection and No edema Assessment and Plan Assessment & Plan (1) Paroxysmal atrial fibrillation: Code(s): I48.0 - Paroxysmal atrial fibrillation Plan: Continue with flecainide as well as anticoagulation. Semi annual renal function test June 2023 last blood work (2) Impaired glucose tolerance: Code(s): R73.02 - Impaired glucose tolerance (oral) Plan: Decrease the amount of carbohydrate intake, pasta, bread, rice and potatoes are all sugar and that is aside from all the sweet stuff, remember that fruits are good but they are Sweet also. (3) Hypercholesterolemia: Code(s): E78.00 - Pure hypercholesterolemia, unspecified Plan: Avoid fried foods, chicken skin, eggs, butter margarine, pastries and meat. Be it pork or beef they have a lot of cholesterol LDL goal of less than 100 triglyceride of less than 150 (4) Nephrolithiasis: Comment: October 2021 combined calcium oxalate stone ESWL January [address]22 Dr[address] 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 No acute fracture or dislocation identified.. Patient is here for follow-up Code(s): M25.532 - Pain in left wrist Orders: Orders Thyroid Stimulating Hormone 6 Months E78.00 - Pure hypercholesterolemia, unspecified Free T4 (Free Thyroxine) 6 Months E78.00 - Pure hypercholesterolemia, unspecified UA w Microscopic 6 Months E78.00 - Pure hypercholesterolemia, unspecified Complete Blood Count Auto Diff 6 Months E78.00 - Pure hypercholesterolemia, unspecified Comprehensive Met. Panel 6 Months E78.00 - Pure hypercholesterolemia, unspecified Vitamin B12 and Folate 6 Months E78.00 - Pure hypercholesterolemia, unspecified Lipid Panel 6 Months E78.00 - Pure hypercholesterolemia, unspecified Coding Level of Care Code Est Pt Level 4 (12667) Diagnoses Paroxysmal atrial fibrillation I48.0 Impaired glucose tolerance R73.02 Hypercholesterolemia E78.00 Nephrolithiasis N20.0 BPH (benign prostatic hyperplasia) N40.0 Wrist pain, left M25.532
== END 2023-07-10 09:09 | disposition home or self-care (01) ==
PROVIDERS: PCP Internal Medicine; Visit Provider Internal Medicine
DX: I48.0 Paroxysmal atrial fibrillation (principal); R73.02 Impaired glucose tolerance (oral); E78.00 Pure hypercholesterolemia, unspecified; N20.0 Calculus of kidney; N40.0 Benign prostatic hyperplasia without lower urinary tract symptoms; M25.532 Pain in left wrist
CPT/HCPCS: 99214

== ENCOUNTER 2023-08-06 11:38 | Outpatient (REF) | payer MEDICARE, SELFPAY ==
[2023-08-06 11:54] LABS: Appearance Urine Turbid; Color Urine Other; Glucose Urine UA Negative (Negative); Leukocyte Esterase Urine Moderate (2+) (Negative); Nitrite Urine Positive (Negative); UMIC TRIGGER UA YES; Urine Blood Moderate (2+) (Negative); Urine Ketones Negative (Negative); Urine Protein 100 (2+) mg/dL (Neg-Trace)
[2023-08-06 11:59] LABS: Bacteria Urine None Seen (None Seen); Calcium Oxalate Crystals Urine Present; Hyaline Casts Urine 0-2 /LPF (0-2); Other Crystals Urine Present; RBC Urine >20 /HPF (0-2)
== END 2023-08-06 11:39 | disposition home or self-care (01) ==
LOC: HO.LNP 11:38
PROVIDERS: Visit Provider Internal Medicine
DX: E78.00 Pure hypercholesterolemia, unspecified (principal); R31.9 Hematuria, unspecified; N20.0 Calculus of kidney
CPT/HCPCS: 81001; 87086

== ENCOUNTER 2023-08-19 14:13 | Outpatient (REF) | payer MEDICARE, SELFPAY ==
--- NOTE | ~2023-08-19 | US_ITS ---
EXAMINATION: US RETROPERITONEAL LIMITED (RENAL ONLY) CLINICAL INFORMATION: Hematuria, unspecified. COMPARISON: Ultrasound retroperitoneal limited (renal only) 02/19/2023 and 07/29/2022. X-ray abdomen KUB 01/16/2022. CT abdomen and pelvis without contrast 09/23/2021. TECHNIQUE: Real-time imaging of the kidneys. Technically somewhat limited study secondary to bowel gas. FINDINGS: RIGHT KIDNEY: 10.8 x 5.6 x 5.1 cm (SAG x AP x TRV). No hydronephrosis. No renal calculi. Limited visualization. Renal cortical thickness is normal. LEFT KIDNEY: 11.0 x 7.1 x 4.9 cm (SAG x AP x TRV). No hydronephrosis. Redemonstration of a 3 mm echogenic focus in the upper left kidney, equivocal for a kidney stone. Renal cortical thickness is normal. Limited visualization. US/US renal BI IMPRESSION: No hydronephrosis. Redemonstration of a 3 mm echogenic focus in the upper left kidney, equivocal for a kidney stone. Limited visualization.
== END 2023-08-19 14:14 | disposition home or self-care (01) ==
LOC: HO.US 14:13
PROVIDERS: PCP Internal Medicine; Visit Provider Internal Medicine
DX: R31.9 Hematuria, unspecified (principal)
CPT/HCPCS: 76775

== ENCOUNTER 2023-11-26 13:36 | Outpatient (AMB) | payer MEDICARE, SELFPAY ==
[2023-11-26 13:45] VITALS: BP 126/74; PULSE 64; BMI 25.5
--- NOTE | 2023-11-26 13:45 | MHC.OFFVIS ---
Intake Vital Signs 11/26/23 13:45 Height 5 ft 8 in Weight 167 lb 8.821 oz BMI 25.5 BP 126/74 Blood Pressure Location Lt brachial Position Sitting Pulse 64 Intake Visit Reasons: 6 mth fu Intake Note: 6 month follow-up with ekg feeling good Maintenance Man Required: No Allergies prochlorperazine [From COMPAZINE] Allergy (Severe, Verified 07/10/23 08:34) N/V SEIZURES, 1950's Medication List - Last Reconciled 11/26/23 by Jerry Turner MD azelaic acid 15% 1 appl topical BID cholecalciferol (vitamin D3) 25 mcg PO DAILY cyanocobalamin (vitamin B-12) 1,000 mcg PO 2XW flecainide 50 mg PO BID fluticasone propionate 50 mcg/actuation (Flonase Allergy Relief) 2 sprays intranasal DAILY folic acid 0.8 mg PO 2XW metoprolol succinate ER 25 mg PO DAILY 90 days pyridoxine (vitamin B6) 50 mg PO DAILY 90 days rivaroxaban (Xarelto) 20 mg PO DAILY HPI HPI Comments History of Present Illness Details Aldo comes for follow-up. He has not had any significant symptoms of atrial fibrillation. Taking all his medications. No bleeding issues or neurologic events. Denies any prolonged palpitation irregular heartbeat. Denies any exertional chest pain or shortness of breath. No lightheadedness, syncope. [facility] Medical History COVID-19 virus infection Medicare annual wellness visit, initial Thrombocytopenia Vitamin D deficiency Seizures Hepatitis History of torn meniscus of right knee Hypercholesterolemia Impaired glucose tolerance Paroxysmal atrial fibrillation SVT (supraventricular tachycardia) Surgical History Hx of colonoscopy Carpal tunnel syndrome S/P arthroscopic surgery of right knee History of left hip replacement Family History Father Medical history unknown Mother Medical history unknown Social History Housing: House Are you a primary pet care technician to a significant other at home: No Do you presently have visiting nurse or other home services: No Alcohol intake: current Alcohol intake frequency: a few times a week Alcohol type: wine Patient Tobacco Use Status: Never used Tobacco e-Cigarette/Vaping Use: Never Used Second Hand Smoke Exposure: No Current occupational status: retired Cognitive needs: No Hearing needs: No Vision needs: No Review of Systems Const Denies chills, Denies fatigue, Denies fever(s), Denies frequent falls, Denies weakness, Denies weight gain and Denies weight loss ENT Denies dizziness Card Denies chest pain, Denies leg edema, Denies lightheadedness, Denies palpitations, Denies dyspnea, Denies dyspnea on exertion, Denies orthopnea and Denies other (loss of consciousness) Resp Denies cough, Denies dyspnea and Denies dyspnea on exertion GI Denies hematochezia and Denies change in stool character Musc Denies abnormal gait, Denies muscle weakness, Denies numbness, Denies radiating pain into limb and Denies tingling Neuro Denies abnormal gait, Denies dizziness, Denies frequent falls, Denies numbness, Denies tingling and Denies weakness Endo Denies fatigue and Denies palpitations Physical Exam Vital Signs: Last Vital Signs Pulse 64 11/26/23 13:45 BP 126/74 11/26/23 13:45 BMI result Body Mass Index 25.5 Const General: cooperative, comfortable, no acute distress, alert, awake and well groomed Nutritional Appearance: average body habitus Orientation/consciousness: patient oriented x3 Limitations: no limitations Neck Neck: Yes trachea midline, Yes supple and Yes no JVD Resp Effort & Inspection: normal respiratory effort Auscultation: clear to auscultation bilaterally Cardio Jugular venous distension: no JVD Palpation: normal PMI Rate: regular rate Rhythm: regular rhythm Heart sounds: S1 normal heart sound present, S2 normal heart sound present, no click, no gallops, no murmurs and no rubs GI Auscultation: normal bowel sounds Skin General skin exam: no rashes or lesions noted Neuro General: patient oriented x3 and no focal motor deficits Extrem General: Yes no clubbing, cyanosis or edema Psych Appearance: grossly normal Office Procedures EKG Details: EKG shows normal sinus rhythm with left anterior fascicular block with LVH, unchanged from before [id number], Complete Assessment & Plan Assessment & Plan (1) Paroxysmal atrial fibrillation: Code(s): I48.0 - Paroxysmal atrial fibrillation Plan: Highly symptomatic paroxysmal atrial fibrillation doing well with rhythm control approach. Continue current rhythm control approach with flecainide. Needs concomitant metoprolol therapy for AV lazaro rate blocking. Continue full oral anticoagulation, currently on Xarelto 20 mg daily. Semi annual renal function test should be pursued. Avoidance of stimulants was discussed advised to call me with any new symptoms. EKGs every 6 months required. (2) SVT (supraventricular tachycardia): Comment: SVT with aberrancy PVCs, echo normal left ventricular function May 2018, August 2019 normal LV moderate TR Code(s): I47.1 - Supraventricular tachycardia Plan: SVT which has remained suppressed on metoprolol therapy. Vagal maneuvers were discussed. Continue metoprolol therapy. No current indication for ablation at this point time. Avoidance of stimulants was discussed. Will follow up in the clinic in 6 months time, sooner p.r.n.. Thank you for allowing me to partake in his care Coding Level of Care Code Est Pt Level 4 (14631) Diagnoses Paroxysmal atrial fibrillation I48.0 SVT (supraventricular tachycardia) I47.1 CPT Codes EKG - CPT: [id number], Complete ([id number])
== END 2023-11-26 14:48 | disposition home or self-care (01) ==
PROVIDERS: PCP Internal Medicine; Visit Provider Internal Medicine Cardiovascular Disease
DX: I48.0 Paroxysmal atrial fibrillation (principal); I47.10 Supraventricular tachycardia, unspecified
CPT/HCPCS: 93010; 99214

== ENCOUNTER → 2023-11-26 13:36 | Outpatient (BNVA) | payer MEDICARE, SELFPAY | PROVIDERS: PCP Internal Medicine; Visit Provider Internal Medicine Cardiovascular Disease | DX: I48.0 Paroxysmal atrial fibrillation (principal); I47.10 Supraventricular tachycardia, unspecified | CPT/HCPCS: 93005; 99212 ==

== ENCOUNTER 2024-01-12 07:40 | Outpatient (REF) | payer MEDICARE, SELFPAY ==
[2024-01-12 11:16] LABS: MANUAL DIFF FLAG NO
[2024-01-12 11:43] LABS: Basophils Percent Auto 0.5 % (0-2); Eosinophils Absolute Auto 0.1 X10*3/uL (0.0-0.4); Eosinophils Percent Auto 2.8 % (0-4); Hematocrit 45.3 % (42.0-52.0); Hemoglobin 15.5 g/dl (14.0-18.0); Lymphocytes Absolute Auto 1.5 X10*3/uL (1.2-4.9); Lymphocytes Percent Auto 38.8 % (20-40); Mean Corpuscular HGB Conc 34.2 g/dl (31.0-36.0); Mean Corpuscular Hemoglobin 33.6 pg (27.0-33.0); Mean Corpuscular Volume 98.3 fL (80.0-98.0); Mean Platelet Volume 11.4 fL (9.4-12.4); Monocytes Absolute Auto 0.4 X10*3/uL (0.1-1.2); Monocytes Percent Auto 10.8 % (2-11); Neutrophils Absolute Auto 1.9 x10*3/uL (2.0-8.3); Neutrophils Percent Auto 47.1 % (45-73); Platelet Count 145 X10*3/uL (160-400); Red Blood Count 4.61 X10*6/uL (4.60-5.80); Red Cell Distribution Width 12.8 % (11.0-16.0)
[2024-01-12 12:18] LABS: Alanine Aminotransferase 21 U/L (0-40); Alkaline Phosphatase 37 U/L (39-117); Anion Gap 12 (12-20); Aspartate Amino Transferase 25 U/L (5-37); Bilirubin Total 1.6 mg/dL (0.0-1.0); Blood Urea Nitrogen 17 mg/dL (9-16); Calcium 9.4 mg/dL (8.4-10.2); Carbon Dioxide 28 mmol/L (22-29); Chloride 108 mmol/L (96-108); Cholesterol 188 mg/dL (<200); Estimated Glomerular Filt Rate > 60; Free T4 (Free Thyroxine) 0.97 ng/dL (0.71-1.85); Glucose Random 97 mg/dL (60-115); HDL Cholesterol 69 mg/dL (>40); LDL Cholesterol Calculated 108 mg/dL (<100); Potassium 4.5 mmol/L (3.3-5.1); Sodium 143 mmol/L (135-145); Thyroid Stimulating Hormone 1.72 uIU/mL (0.32-4.0); Total Protein 6.9 g/dL (6.5-8.0); Triglycerides 56 mg/dL (<150)
[2024-01-12 12:27] LABS: Folate 9.2 ng/mL (> or = 4.0); Vitamin B12 623 pg/mL (200-900)
== END 2024-01-12 07:41 | disposition home or self-care (01) ==
LOC: HO.HMGCLDS 07:40
PROVIDERS: PCP Internal Medicine; Visit Provider Internal Medicine
DX: E78.00 Pure hypercholesterolemia, unspecified (principal)
CPT/HCPCS: 36415; 80053; 80061; 82607; 82746; 84439; 84443; 85025

== ENCOUNTER 2024-01-14 08:18 | Outpatient (AMB) | payer MEDICARE, SELFPAY ==
[2024-01-14 08:26] VITALS: BP 132/70; PULSE 59; O2SAT 98; BMI 26.0
--- NOTE | 2024-01-14 08:26 | MHC.PC.OV ---
Vital Signs 01/14/24 08:26 Height 5 ft 8 in Weight 171 lb BMI 26.0 BP 132/70 Blood Pressure Location Lt brachial Position Sitting Pulse 59 Pulse Source Pulse Oximeter Pulse Oximetry (%) 98 Oxygen Delivery Method Room Air Intake Visit Reasons: A fib Allergies prochlorperazine [From COMPAZINE] Allergy (Severe, Verified 01/14/24 08:26) N/V SEIZURES, 1950's Medication List - Last Reconciled 01/14/24 by Tasha Nelson MD azelaic acid 15% 1 appl topical BID cholecalciferol (vitamin D3) 25 mcg PO DAILY cyanocobalamin (vitamin B-12) 1,000 mcg PO 2XW flecainide 50 mg PO BID fluticasone propionate 50 mcg/actuation (Flonase Allergy Relief) 2 sprays intranasal DAILY folic acid 0.8 mg PO 2XW metoprolol succinate ER 25 mg PO DAILY 90 days pyridoxine (vitamin B6) 50 mg PO DAILY 90 days rivaroxaban (Xarelto) 20 mg PO DAILY Tobacco use date assessed: 01/14/24 Fall risk assessment: No Falls in past year Last assessed Fall Risk: 01/14/24 Dental Screening Dental Screen Date: 01/14/24 Did you have a dental visit in the last 12 months?: Yes Did you have a dental problem in the last 6 months where you did not have access to dental care?: No Was dental information given to patient?: Patient has dentist HPI A fib HPI Details 73-year-old male with atrial fibrillation on anticoagulation and flecainide impaired glucose tolerance hypercholesterolemia BPH nephrolithiasis last seen in July 2023. Patient's colonoscopy is up-to-date January 2022 review of the notes has been following up with Cardiology seen in November 2023 stable on present medication of anticoagulation flecainide and metoprolol. Dermatology seen in November also rosacea, seborrheic keratosis received an ultrasound also in August of the kidneys showing 3 mm echogenic focus in the upper left kidney patient follows up with urology has had ESWL left in December last blood work [facility] Medical History (Updated 01/14/24 @ 08:41 by Tasha Nelson MD) Screening for prostate cancer COVID-19 virus infection Medicare annual wellness visit, initial Thrombocytopenia Vitamin D deficiency Seizures Hepatitis History of torn meniscus of right knee Hypercholesterolemia Impaired glucose tolerance Paroxysmal atrial fibrillation SVT (supraventricular tachycardia) Surgical History Hx of colonoscopy Carpal tunnel syndrome S/P arthroscopic surgery of right knee History of left hip replacement Family History (Updated 01/14/24 @ 08:27 by Farida Pruitt CMA) Father Medical history unknown Mother Medical history unknown Social History Housing: House Are you a primary resident care technician to a significant other at home: No Do you presently have visiting nurse or other home services: No Alcohol intake: current Alcohol intake frequency: a few times a week Alcohol type: wine Patient Tobacco Use Status: Never used Tobacco e-Cigarette/Vaping Use: Never Used Second Hand Smoke Exposure: No Current occupational status: retired Cognitive needs: No Hearing needs: Yes Vision needs: Yes Questionnaire PHQ-9 Over the last 2 weeks, how often have you been bothered by any of the following problems? 1. Little interest or pleasure in doing things: not at all 2. Feeling down, depressed, or hopeless: not at all 3. Trouble falling or staying asleep, or sleeping too much: not at all 4. Feeling tired or having little energy: not at all 5. Poor appetite or overeating: not at all 6. Feeling bad about yourself - or that you are a failure or have let yourself or your family down: not at all 7. Trouble concentrating on things, such as reading the newspaper or watching television: not at all 8. Moving or speaking so slowly that other people could have noticed. Or the opposite - being so fidgety or restless that you have been moving around a lot more than usual: not at all 9. Thoughts that you would be better off or of hurting yourself in some way: not at all Total score: 0 Depression Screening Interpretation: Negative Depression Screening Done: Yes 70862 - PHQ-9 Billing: Yes Source: Developed by Drs. Viupl Espinoza, Aidee Ji, Marcello Harrison and colleagues, with an educational chepe from [email or web address] Thrive Questionnaire Date Thrive assessed: 01/14/24 I am a: Patient What is your living situation today?: I have a steady place to live Within the past 12 months, did the food you bought not last and you didn't have the money to get more?: Never true Within the past 12 months, did you worry whether your food would run out before you got money to buy more?: Never true Do you have trouble paying for medicines?: No Do you have trouble getting transportation to medical appointments?: No Do you have trouble paying your heating and electricity bill?: No Do you have trouble taking care of your child, family member or friend?: No Do you have trouble with day-to-day activities such as bathing, preparing meals, shopping, managing finances, etc.?: No Are you currently unemployed and looking for a job?: No Are you interested in more education?: No Currently or been in a relationship where the following occur: no concerns reported THRIVE Score: 0 AUDIT C Alcohol Use Questionnaire (AUDIT-C) 1. How often do you have a drink containing alcohol?: 2-3 times a week 2. How many drinks containing alcohol do you have on a typical day when you are drinking?: 1 or 2 3. How often do you have six or more drinks on one occasion?: Never Total Score: 3 Score Reviewed/Action Taken: Yes RANDY-7 AMB Questionnaire RANDY-7 Date RANDY - 7 assessed: 01/14/24 Feeling nervous, anxious, or on edge: 0 = Not at all Not being able to stop or control worryin = Not at all Worrying too much about different things: 0 = Not at all Trouble relaxin = Not at all Being so restless that it is hard to sit still: 0 = Not at all Becoming easily annoyed or irritable: 0 = Not at all Feeling afraid as if something awful might happen: 0 = Not at all Total RANDY-7 score (0-4 normal; 5-9 mild; 10-14 moderate; 15-21 severe): 0 Source: Developed by Drs. Vipul Espinoza, Aidee Ji, Marcello Harrison and colleagues, with an educational chepe from [email or web address]. Physical exam (Primary Care) Vital Signs: Last Vital Signs Pulse 59 01/14/24 08:26 BP 132/70 01/14/24 08:26 Pulse Ox 98 01/14/24 08:26 Oxygen Delivery Method Room Air 01/14/24 08:26 BMI result Body Mass Index 26.0 Tobacco/Smoking Status: Tobacco use Status Tobacco use date assessed 01/14/24 01/14/24 08:29 Patient Tobacco Use Status Never used Tobacco 01/14/24 08:29 e-Cigarette/Vaping Use Never Used 01/14/24 08:29 PHQ-9: PHQ-9 Score PHQ-9: Total score 0 01/14/24 08:29 Depression Screening Interpretation: Negative Thrive Assessment: Date of Thrive Assessment Date Thrive assessed 01/14/24 01/14/24 08:29 Currently or been in a relationship where the following occur: no concerns reported Const General: alert; No acute distress Eyes Conjunctivae: conjunctivae normal Resp Auscultation: clear to auscultation bilaterally Cardio Rate: regular rate Rhythm: regular rhythm GI Inspection: Yes normal to inspection Extrem General: Yes normal to inspection and No edema Assessment and Plan Assessment & Plan (1) Paroxysmal atrial fibrillation: Code(s): I48.0 - Paroxysmal atrial fibrillation Plan: Patient is being followed up by Cardiology presently on flecainide 50 mg twice a day metoprolol 25 mg once a day and on anticoagulation with Xarelto. January 2024 last blood (2) Impaired glucose tolerance: Code(s): R73.02 - Impaired glucose tolerance (oral) Plan: Decrease the amount of carbohydrate intake, pasta, bread, rice and potatoes are all sugar and that is aside from all the sweet stuff, remember that fruits are good but they are Sweet also. most recent blood work is normal (3) Hypercholesterolemia: Code(s): E78.00 - Pure hypercholesterolemia, unspecified Plan: Avoid fried foods, chicken skin, eggs, butter margarine, pastries and meat. Be it pork or beef they have a lot of cholesterol LDL goal of less than 130 and triglyceride of less than 150. January 2024 last blood work within normal limits (4) Nephrolithiasis: Comment: October 2021 combined calcium oxalate stone ESWL January [address]22 Dr. Murcia Code(s): N20.0 - Calculus of kidney Plan: Patient has been follow-up with urology last ultrasound does not show any stone. (5) BPH (benign prostatic hyperplasia): Code(s): N40.0 - Benign prostatic hyperplasia without lower urinary tract symptoms Plan: Stable Orders: Orders IRON PROFILE 6 Months R73.02 - Impaired glucose tolerance (oral) Hemoglobin A1c 6 Months R73.02 - Impaired glucose tolerance (oral) Complete Blood Count Auto Diff 6 Months R73.02 - Impaired glucose tolerance (oral) Comprehensive Met. Panel 6 Months R73.02 - Impaired glucose tolerance (oral) Lipid Panel 6 Months E78.00 - Pure hypercholesterolemia, unspecified, R73.02 - Impaired glucose tolerance (oral) Ferritin 6 Months R73.02 - Impaired glucose tolerance (oral) Reticulocyte Count 6 Months R73.02 - Impaired glucose tolerance (oral) Thyroid Stimulating Hormone 6 Months R73.02 - Impaired glucose tolerance (oral) Medications: Refilled metoprolol succinate ER 25 mg PO DAILY 90 days 90 tabs 3RF R73.02 - Impaired glucose tolerance (oral) flecainide 50 mg PO BID 180 tabs 3RF I47.1 - Supraventricular tachycardia, I48.0 - Paroxysmal atrial fibrillation rivaroxaban (Xarelto) 20 mg PO DAILY 90 tabs 3RF R73.02 - Impaired glucose tolerance (oral) Coding Level of Care Code Est Pt Level 4 (44514) Diagnoses Paroxysmal atrial fibrillation I48.0 Impaired glucose tolerance R73.02 Hypercholesterolemia E78.00 Nephrolithiasis N20.0 BPH (benign prostatic hyperplasia) N40.0
== END 2024-01-14 09:05 | disposition home or self-care (01) ==
PROVIDERS: PCP Internal Medicine; Visit Provider Internal Medicine
DX: I48.0 Paroxysmal atrial fibrillation (principal); R73.02 Impaired glucose tolerance (oral); E78.00 Pure hypercholesterolemia, unspecified; N20.0 Calculus of kidney; N40.0 Benign prostatic hyperplasia without lower urinary tract symptoms
CPT/HCPCS: 99214

== ENCOUNTER 2024-02-23 07:44 | Outpatient (REF) | payer MEDICARE, SELFPAY ==
--- NOTE | ~2024-02-23 | US_ITS ---
EXAMINATION: US RETROPERITONEAL LIMITED (RENAL ONLY) CLINICAL INFORMATION: Calculus of kidney COMPARISON: Renal ultrasound 08/19/2023 and 02/19/2023. X-ray abdomen KUB 01/16/2022. CT abdomen and pelvis 09/23/2021. TECHNIQUE: Real-time imaging of the kidneys. FINDINGS: RIGHT KIDNEY: 10.7 x 4.3 x 5.6 cm (SAG x AP x TRV). The kidney is normal in size, contour, and echogenicity. Renal cortical thickness is normal. No calculi or focal parenchymal lesions. No hydronephrosis. LEFT KIDNEY: 10.0 x 5.6 x 6.2 cm (SAG x AP x TRV). The kidney is normal in size, contour, and echogenicity. Renal cortical thickness is normal. No calculi or focal parenchymal lesions. No hydronephrosis. US/US renal BI IMPRESSION: Unremarkable examination.
== END 2024-02-23 07:45 | disposition home or self-care (01) ==
LOC: HO.US 07:44
PROVIDERS: PCP Internal Medicine; Visit Provider Urology
DX: N20.0 Calculus of kidney (principal)
CPT/HCPCS: 76775

== ENCOUNTER 2024-03-09 08:22 | Outpatient (AMB) | payer MEDICARE, SELFPAY ==
--- NOTE | 2024-03-09 08:30 | MHC.OFFVIS ---
Intake Visit Reasons: 1Y Ultrasound(set) Intake Note: Patient is Present for Follow Up Ultrasound Urology Medication:Vitamin B6 Antibiotic Allergies: None Blood Thinners: Xarelto Allergies prochlorperazine [From COMPAZINE] Allergy (Severe, Verified 03/09/24 08:31) N/V SEIZURES, 1950's HPI Comments Details: Tobias is a pleasant male. He is a patient of Dr. Nelson. He is seen for the following urologic conditions - nephrolithiasis Yearly follow-up for ongoing management of recurrent nephrolithiasis Discussed ultrasound findings - no stone seen Encourage fluid intake Remain on B6 Surveillance imaging Pelvic floor information provided - texted to patient Nephrolithiasis calcium oxalate ER visit late September 2021 Triggered by discoloration to urine Family history positive with father and brother forming stones Imaging 09/23 distal left ureteric stone with hydroureteronephrosis, left upper pole stone 7 mm - 01/22 ultrasound no evidence of stones - 08/24 ultrasound, question of small 3 mm stone on left side - 02/23 ultrasound 3 mm stone left side - 02/24 ultrasound no stones seen Intervention - 09/23 ureteroscopy with laser lithotripsy left side - 12/25 left ESWL Stone analysis 09/23 calcium oxalate dihydrate Therapeutic plan encourage fluid intake - surveillance imaging - vitamin B6 [facility] Medical History Screening for prostate cancer COVID-19 virus infection Medicare annual wellness visit, initial Thrombocytopenia Vitamin D deficiency Seizures Hepatitis History of torn meniscus of right knee Hypercholesterolemia Impaired glucose tolerance Paroxysmal atrial fibrillation SVT (supraventricular tachycardia) Surgical History Hx of colonoscopy Carpal tunnel syndrome S/P arthroscopic surgery of right knee History of left hip replacement Family History Father Medical history unknown Mother Medical history unknown Social History Housing: House Are you a primary resident care aid to a significant other at home: No Do you presently have visiting nurse or other home services: No Alcohol intake: current Alcohol intake frequency: a few times a week Alcohol type: wine Patient Tobacco Use Status: Never used Tobacco e-Cigarette/Vaping Use: Never Used Second Hand Smoke Exposure: No Current occupational status: retired Cognitive needs: No Hearing needs: Yes Vision needs: Yes Review of Systems Const Denies chills and Denies fever(s) Card Reports no additional complaints and Denies syncope Resp Denies cough GI Denies abdominal pain and Denies heartburn Reports as per HPI and Denies change in libido Neuro Denies syncope Psych Denies change in libido Endo Denies change in libido Physical Exam Const General: cooperative, healthy appearing, comfortable and no acute distress Orientation/consciousness: patient oriented x3 HEENT Face and sinus: Yes normal facial exam Mouth: moist mucous membranes Neck Neck: Yes normal visual inspection, Yes full ROM and Yes trachea midline Chest Chest palpation & inspection: normal inspection of the chest Resp Effort & Inspection: normal respiratory effort, able to speak in complete sentences and no respiratory distress GI Inspection: Yes normal to inspection Back/Spine/Pelvis Cervical Spine: normal cervical lordosis Thoracic/Lumbar Spine: thoracic and lumbar spine normal to inspection Skin General skin exam: no rashes or lesions noted Neuro General: patient oriented x3, gait normal, tone normal and moves all extremities Extrem General: Yes normal to inspection and Yes capillary refill normal Assessment & Plan Assessment & Plan (1) Nephrolithiasis: Comment: October 2021 combined calcium oxalate stone ESWL January [address]22 Dr. Murcia Code(s): N20.0 - Calculus of kidney Category: Medical (2) BPH (benign prostatic hyperplasia): Code(s): N40.0 - Benign prostatic hyperplasia without lower urinary tract symptoms Category: Medical Plan Twelve month follow-up renal ultrasound Orders: Orders US renal BI 12 Months N20.0 - Calculus of kidney Patient Instructions: Imaging studies, laboratory and physical exam results were discussed and reviewed in detail. No major barriers to patient understanding were identified. An opportunity to ask questions regarding the treatment plan was provided. All questions were answered. The patient expressed understanding and agreement with the above treatment plan. The patient is aware they should contact our office by phone for worsening of their current condition or the appearance of new urologic symptoms. Compliance is encouraged with any medications and followup testing that is ordered. It is a privilege to participate in the urologic care of your patient. If you have any questions or concerns regarding treatment for the above conditions, or other urologic issues, please do not hesitate to contact me. The office telephone contact is [phone]. This note is constructed using voice recognition software. While every effort has been made to ensure accuracy banking services clerk errors may have been included. Yours sincerely, Dr Aiden Murcia MD, [facility] - Urology Providers of Expert, Compassionate Care for the Genitourinary System Coding Level of Care Code Est Pt Level 4 (59156) Diagnoses Nephrolithiasis N20.0 BPH (benign prostatic hyperplasia) N40.0
== END 2024-03-09 08:57 | disposition home or self-care (01) ==
PROVIDERS: Visit Provider Urology
DX: N20.0 Calculus of kidney (principal); N40.0 Benign prostatic hyperplasia without lower urinary tract symptoms
CPT/HCPCS: 99213

== ENCOUNTER → 2024-03-09 08:22 | Outpatient (BNVA) | payer MEDICARE, SELFPAY | PROVIDERS: Visit Provider Urology | DX: N20.0 Calculus of kidney (principal); N40.0 Benign prostatic hyperplasia without lower urinary tract symptoms | CPT/HCPCS: 99212 ==

== ENCOUNTER 2024-06-15 09:38 | Outpatient (AMB) | payer MEDICARE, SELFPAY ==
--- NOTE | 2024-06-15 09:46 | MHC.OFFVIS ---
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 Layer Required: No Allergies prochlorperazine [From COMPAZINE] Allergy (Severe, Verified 03/09/24 08:31) N/V SEIZURES, 1950's Medication List - Last Reconciled 06/15/24 by Jerry Turner MD azelaic acid 15% 1 appl topical BID cholecalciferol (vitamin D3) 25 mcg PO DAILY cyanocobalamin (vitamin B-12) 1,000 mcg PO 2XW flecainide 50 mg PO BID fluticasone propionate 50 mcg/actuation (Flonase Allergy Relief) 2 sprays intranasal DAILY folic acid 0.8 mg PO 2XW metoprolol succinate ER 25 mg PO DAILY 90 days pyridoxine (vitamin B6) 50 mg PO DAILY 90 days rivaroxaban (Xarelto) 20 mg PO DAILY HPI Comments Details: Tobias comes for follow-up. He has not had any irregular heartbeat or prolonged fast heart rate or palpitations. Taking all his medications. No bleeding issues or neurologic events. Continues to bike without having any symptoms exertional chest pain or shortness of breath. He hours concerned about atherosclerotic disease given his 2 brothers were older than him had recent screening 1 with coronary calcium score, with carotid duplex. His last LDL is 108 mg/dL [facility] Medical History Screening for prostate cancer COVID-19 virus infection Medicare annual wellness visit, initial Thrombocytopenia Vitamin D deficiency Seizures Hepatitis History of torn meniscus of right knee Hypercholesterolemia Impaired glucose tolerance Paroxysmal atrial fibrillation SVT (supraventricular tachycardia) Surgical History Hx of colonoscopy Carpal tunnel syndrome S/P arthroscopic surgery of right knee History of left hip replacement Family History Father Medical history unknown Mother Medical history unknown Social History Housing: House Are you a primary special needs caregiver to a significant other at home: No Do you presently have visiting nurse or other home services: No Alcohol intake: current Alcohol intake frequency: a few times a week Alcohol type: wine Patient Tobacco Use Status: Never used Tobacco e-Cigarette/Vaping Use: Never Used Second Hand Smoke Exposure: No Current occupational status: retired Cognitive needs: No Hearing needs: Yes Vision needs: Yes Review of Systems Const Denies chills, Denies fatigue, Denies fever(s), Denies frequent falls, Denies weakness, Denies weight gain and Denies weight loss ENT Denies dizziness Card Denies chest pain, Denies leg edema, Denies lightheadedness, Denies palpitations, Denies dyspnea, Denies dyspnea on exertion, Denies orthopnea and Denies other (loss of consciousness) Resp Denies cough, Denies dyspnea and Denies dyspnea on exertion GI Denies hematochezia and Denies change in stool character Musc Denies abnormal gait, Denies muscle weakness, Denies numbness, Denies radiating pain into limb and Denies tingling Neuro Denies abnormal gait, Denies dizziness, Denies frequent falls, Denies numbness, Denies tingling and Denies weakness Endo Denies fatigue and Denies palpitations Physical Exam Vital Signs: Last Vital Signs Pulse 57 06/15/24 09:48 BP 110/70 06/15/24 09:48 BMI result Body Mass Index 25.1 Const General: cooperative, healthy appearing, comfortable and no acute distress Orientation/consciousness: patient oriented x3 HEENT Face and sinus: Yes normal facial exam Mouth: moist mucous membranes Neck Neck: Yes normal visual inspection, Yes full ROM and Yes trachea midline Chest Chest palpation & inspection: normal inspection of the chest Resp Effort & Inspection: normal respiratory effort, able to speak in complete sentences and no respiratory distress GI Inspection: Yes normal to inspection Back/Spine/Pelvis Cervical Spine: normal cervical lordosis Thoracic/Lumbar Spine: thoracic and lumbar spine normal to inspection Skin General skin exam: no rashes or lesions noted Neuro General: patient oriented x3, gait normal, tone normal and moves all extremities Extrem General: Yes normal to inspection and Yes capillary refill normal Office Procedures EKG Details: EKG shows sinus bradycardia with left ventricular hypertrophy with left anterior fascicular block [id number], Complete Assessment & Plan Assessment & Plan (1) Paroxysmal atrial fibrillation: Code(s): I48.0 - Paroxysmal atrial fibrillation Category: Medical Plan: Paroxysmal atrial fibrillation has done very well with rhythm control approach will continue pursue rhythm control approach. Continue current flecainide therapy. Also continue concomitant metoprolol therapy which is required in patients on flecainide therapy. Continue full oral anticoagulation, currently on Xarelto 20 mg daily. Semi annual renal function test should be pursued. Advised to call me with any new symptoms. Avoidance of stimulants was discussed. Follow-up every 6 months. (2) SVT (supraventricular tachycardia): Comment: SVT with aberrancy PVCs, echo normal left ventricular function May 2018, August 2019 normal LV moderate TR Code(s): I47.1 - Supraventricular tachycardia Category: Medical Plan: SVT with no clinical recurrence on metoprolol therapy as well as flecainide therapy. Continue the same. Vagal maneuvers were discussed. Avoidance of stimulants. (3) Hypercholesterolemia: Code(s): E78.00 - Pure hypercholesterolemia, unspecified Category: Medical Plan: Hyperlipidemia with family history of atherosclerotic disease. Given his age is highly likely that he could have underlying atherosclerotic disease. However he wants to further screen and I think coronary calcium score could be an adequate testing to evaluate for atherosclerotic disease. At his risk factors and age expect presence of coronary calcification. Suggested that if so would target with statin therapy with target goal LDL less than 70 mg/dL. If calcium score is extremely elevated may need to alter treatment approach including need for angiogram/stress testing. This was discussed with him. Will follow up in the clinic in 6 months time, sooner p.r.n.. Thank you for allowing me to partake in his care Orders: Orders CT Coronary Calcium Score 1 Week E78.00 - Pure hypercholesterolemia, unspecified CA echo transthoracic complete 1 Year I48.0 - Paroxysmal atrial fibrillation Coding Level of Care Code Est Pt Level 4 (11357) Diagnoses Paroxysmal atrial fibrillation I48.0 SVT (supraventricular tachycardia) I47.1 Hypercholesterolemia E78.00 CPT Codes EKG - CPT: 06302-[id number], Complete ([id number])
[2024-06-15 09:48] VITALS: BP 110/70; PULSE 57; BMI 25.1
== END 2024-06-15 10:21 | disposition home or self-care (01) ==
PROVIDERS: PCP Internal Medicine; Visit Provider Internal Medicine Cardiovascular Disease
DX: I48.0 Paroxysmal atrial fibrillation (principal); I47.10 Supraventricular tachycardia, unspecified; E78.00 Pure hypercholesterolemia, unspecified
CPT/HCPCS: 93010; 99214

== ENCOUNTER → 2024-06-15 09:38 | Outpatient (BNVA) | payer MEDICARE, SELFPAY | PROVIDERS: PCP Internal Medicine; Visit Provider Internal Medicine Cardiovascular Disease | DX: I48.0 Paroxysmal atrial fibrillation (principal); I47.10 Supraventricular tachycardia, unspecified; E78.00 Pure hypercholesterolemia, unspecified | CPT/HCPCS: 93005; 99212 ==

== ENCOUNTER 2024-06-18 13:46 | Outpatient (AMB) | payer MEDICARE, SELFPAY ==
[2024-06-18 13:54] VITALS: BP 138/70; PULSE 54; O2SAT 98; BMI 25.2
--- NOTE | 2024-06-18 13:54 | A.OFFVIS_ITS ---
Intake Vital Signs 06/18/24 13:54 Height 5 ft 8 in Weight 166 lb BMI 25.2 BP 138/70 Blood Pressure Location Lt brachial Position Sitting Pulse 54 Pulse Source Pulse Oximeter Pulse Oximetry (%) 98 Oxygen Delivery Method Room Air Intake Visit Reasons: sawv Intake Note: Patient is here for an Annual Wellness Visit. Manager Of Quality Required: No Allergies prochlorperazine [From COMPAZINE] Allergy (Severe, Verified 06/18/24 13:55) N/V SEIZURES, 1950's Medication List - Last Reconciled 06/18/24 by Naa Bonilla PA-C azelaic acid 15% 1 appl topical BID cholecalciferol (vitamin D3) 25 mcg PO DAILY cyanocobalamin (vitamin B-12) 1,000 mcg PO 2XW flecainide 50 mg PO BID fluticasone propionate 50 mcg/actuation (Flonase Allergy Relief) 2 sprays intranasal DAILY folic acid 0.8 mg PO 2XW metoprolol succinate ER 25 mg PO DAILY 90 days pyridoxine (vitamin B6) 50 mg PO DAILY 90 days rivaroxaban (Xarelto) 20 mg PO DAILY HPI sawv HPI Details 73-year-old male with atrial fibrillatio n on anticoagulation and flecainide impaired glucose tolerance hypercholesterolemia BPH nephrolithiasis last seen January 2024 coming in for annual wellness visit. In review of the notes, patient was seen by Urology march 2024 for recurrent nephrolithiasis, encouraged fluid intake remain on B6 and surveillance imaging in 12 months. Patient also regularly follows with physical therapy for unsteady gait however was discharged 04/23/2024. Patient saw Cardiology 06/15/2024 for follow up on AFib which appears to be well controlled on flecainide and metoprolol and currently on Xarelto for anticoagulation. Patient has also been referred for CT coronary calcium score at his request. Today he tells us he has been feeling generally well and has no acute concerns. He did recently see Cardiology and he is concerned about coronary calcium scoring. Per Cardiology management of blood pressure, cholesterol, and blood sugar is recommended and management should it change unless calcium scoring is extremely high. [facility] Medical History Screening for prostate cancer COVID-19 virus infection Medicare annual wellness visit, initial Thrombocytopenia Vitamin D deficiency Seizures Hepatitis History of torn meniscus of right knee Hypercholesterolemia Impaired glucose tolerance Paroxysmal atrial fibrillation SVT (supraventricular tachycardia) Surgical History Hx of colonoscopy Carpal tunnel syndrome S/P arthroscopic surgery of right knee History of left hip replacement Family History Father Medical history unknown Mother Medical history unknown Social History Housing: House Are you a primary manager career to a significant other at home: No Do you presently have visiting nurse or other home services: No Alcohol intake: current Alcohol intake frequency: a few times a week Alcohol type: wine Patient Tobacco Use Status: Never used Tobacco e-Cigarette/Vaping Use: Never Used Second Hand Smoke Exposure: No Current occupational status: retired Cognitive needs: No Hearing needs: Yes Vision needs: Yes Questionnaire Medicare Wellness Checkup [age] What gender do you identify with?: male During the past 4 weeks, how much have you been bothered by emotional problems such as feeling anxious, depressed, irritable, sad or downhearted, and blue?: not at all During the past 4 weeks, has your physical & emotional health limited your social activities with family, friends, neighbors, or groups?: not at all During the past 4 weeks, how much bodily pain have you generally had?: no pain During the past 4 weeks, was someone available to help you if you needed & wanted help?: yes, as much as I wanted During the past 4 weeks, what was the hardest physical activity you could do for at least 2 minutes?: moderate Can you get to places out of walking distance without help? (For eg., can you travel alone on buses, taxis or drive your car?): Yes Can you go shopping for groceries or clothes without someone's help?: Yes Can you prepare your own meals?: Yes Can you do your housework without help?: Yes Because of any health problems, do you need the help of another person with your personal care needs such as eating, bathing, dressing or getting around the house?: No Can you handle your own money without help?: Yes During the past 4 weeks, how would you rate your health in general?: good During the past 4 weeks how have things been going for you?: pretty well Are you having difficulties driving your car?: no Do you always fasten your seat belt when you are in a car?: yes, usually During past 4 weeks, have you been bothered by the following: never: Trouble eating well? and Teeth or denture problems? Are you a smoker?: no During the past 4 weeks, how many drinks of wine, beer, or other alcoholic beverages did you have?: 2-5 drinks per week How often do you have trouble taking medicines the way you have been told to take them?: I always take medicine as prescribed What is your race?: White Activity of Daily Living Bathing - sponge bath, tub bath or shower: receives no assistance (gets in/out by self, if usual bathing means Dressing - getting clothes from closets & drawers, including inner/outer garments & fasteners.: gets clothes & gets completely dressed without help Toileting - going to the 'toilet room' for urine/bowel elimination & cleaning self/arranging clothes: goes to toilet room, cleans self, arranges clothes witho ut help Transfer: moves in & out of bed and chair without help (may use support object) Continence: controls urination/bowel movements completely by self Feeding: feeds self without help Total Score: 0 Information obtained from: patient Using telephone: independent Traveling: independent Shopping: independent Preparing meals: independent Housework: independent Taking medicine: independent Managing money: independent PHQ-9 Over the last 2 weeks, how often have you been bothered by any of the following problems? 1. Little interest or pleasure in doing things: not at all 2. Feeling down, depressed, or hopeless: not at all 3. Trouble falling or staying asleep, or sleeping too much: not at all 4. Feeling tired or having little energy: not at all 5. Poor appetite or overeating: not at all 6. Feeling bad about yourself - or that you are a failure or have let yourself or your family down: not at all 7. Trouble concentrating on things, such as reading the newspaper or watching television: not at all 8. Moving or speaking so slowly that other people could have noticed. Or the opposite - being so fidgety or restless that you have been moving around a lot more than usual: not at all 9. Thoughts that you would be better off or of hurting yourself in some way: not at all Total score: 0 Depression Screening Interpretation: Negative Depression Screening Done: Yes 35285 - PHQ-9 Billing: Yes Source: Developed by Drs. Vipul Espinoza, Aidee Ji, Marcello Harrison and colleagues, with an educational chepe from [employer]. Review of Systems Const Denies body aches, Denies fatigue, Denies fever(s), Denies frequent falls, Denies headache(s) and Denies weakness Eyes Details: Regularly sees eye doctor Reports no additional complaints and Denies change in vision ENT Denies dysphagia, Denies dizziness, Denies facial pain, Denies headache(s), Denies nasal congestion and Denies odynophagia Card Denies chest pain, Denies syncope, Denies irregular heart rhythm, Denies leg edema, Denies lightheadedness and Denies dyspnea Resp Denies cough and Denies dyspnea GI Denies constipation, Denies dysphagia, Denies dyspepsia, Denies diarrhea, Denies nausea, Denies odynophagia and Denies vomiting Denies dysuria, Reports urinary frequency (Due to increase water intake), Denies urinary hesitancy and Denies urinary urgency Musc Denies back pain and Reports arthralgias (Occasional ) Skin/Breast Reports system reviewed and no additional complaints, except as documented Neuro Denies dizziness, Denies syncope, Denies frequent falls, Denies headache(s) and Denies weakness Psych Reports no additional complaints Endo Denies fatigue Physical Exam Vital Signs: Last Vital Signs Pulse 54 06/18/24 13:54 BP 138/70 06/18/24 13:54 Pulse Ox 98 06/18/24 13:54 Oxygen Delivery Method Room Air 06/18/24 13:54 BMI result Body Mass Index 25.2 Const General: cooperative, healthy appearing, comfortable and no acute distress Orientation/consciousness: patient oriented x3 HEENT Head: Yes normocephalic Ears: hearing grossly normal bilaterally, external ears normal, TM's normal bilaterally and EAC's normal General nose exam: Normal external nose present Face and sinus: Yes normal facial exam and Yes sinuses nontender Mouth: Normal oral and palatal mucosa present and tongue normal Throat: Yes posterior oropharynx normal Eyes General: appearance normal, both eyes and all related structures Conjunctivae: conjunctivae normal Pupils: Equal, round and reactive pupils present EOM: EOMs intact bilaterally and No Nystagmus present Neck Neck: Yes normal visual inspection, Yes full ROM and Yes no lymphadenopathy Chest Chest palpation & inspection: normal inspection of the chest Resp Effort & Inspection: normal respiratory effort Auscultation: clear to auscultation bilaterally, no crackles, no rales, no rhonchi, no wheezes and breath sounds present Cardio Rate: regular rate Rhythm: regular rhythm Peripheral pulses: radial pulses present and dorsalis pedis present GI Inspection: Yes normal to inspection and No Abdominal wall edema Palpation (GI): Soft to palpation, not firm and nontender Auscultation: normal bowel sounds Rectal Exam - Male: Yes deferred General: Yes no CVA tenderness Back/Spine/Pelvis Back: no CVA tenderness Skin General skin exam: no rashes or lesions noted Neuro General: patient oriented x3 Cranial nerves: Yes Equal, round and reactive pupils present, Yes Midline tongue present, Yes Ability to bilaterally elevate shoulders present and No Nystagmus present Gait exam (Neuro): Normal gait present Extrem General: Yes normal to inspection, Yes full ROM, No no pedal edema and No edema Psych Speech and movement: Normal speech and movement present Affect: normal affect Insight: Good insight present (Psych) Judgement: Good judgement present (Psych) Assessment & Plan Assessment & Plan (1) Medicare annual wellness visit, subsequent: Code(s): Z00.00 - Encounter for general adult medical examination without abnormal findings Plan: Patient is up-to-date on all routine screenings and vaccinations for his age. Routine blood work completed and ordered for next month. Encouraged healthy diet and exercise and follow up in 1 year. (2) BPH (benign prostatic hyperplasia): Code(s): N40.0 - Benign prostatic hyperplasia without lower urinary tract symptoms Plan: Continue to follow with Urology. (3) Nephrolithiasis: Comment: October 2021 combined calcium oxalate stone ESWL January 2022 Dr. Murcia Code(s): N20.0 - Calculus of kidney Plan: Continue to follow with Dr. Murcia. Encouraged fluid intake remain on B6 and surveillance imaging in 12 months with urology. (4) Colon cancer screening: Code(s): Z12.11 - Encounter for screening for malignant neoplasm of colon Plan: Per patient he is up-to-date on colonoscopy last completed at [facility]. We will request these notes. Colonoscopy no longer recommended due to his age. (5) Hypercholesterolemia: Code(s): E78.00 - Pure hypercholesterolemia, unspecified Plan: Last cholesterol labs were within goal. LDL of 108. Avoid foods that are high in cholesterol such as red meat, fried foods, eggs and baked goods. (6) Impaired glucose tolerance: Code(s): R73.02 - Impaired glucose tolerance (oral) Plan: Not currently on medical management. Decrease the amount of carbohydrates such as pasta, bread, rice, and potatoes and limit the amount of sweets. Although fruits are generally healthy they should be eaten in moderation as they are still high in sugar. (7) Paroxysmal atrial fibrillation: Code(s): I48.0 - Paroxysmal atrial fibrillation Plan: Continue on flecainide, metoprolol, and Xarelto. Well managed per Cardiology. Continue to follow with cardiology every 6 months. Plan This note was constructed using voice recognition software. While every effort has been made to ensure accuracy and animal biologist, still areas may have been included sometimes these areas may affect the content or meeting of the given symptoms. Total time spent caring for the patient today was 45 minutes. This includes time spent before the visit reviewing the chart, time spent during the visit, and time spent after the visit and documentation. Orders: Orders Prostate Specific Antigen Scr Today Z00.00 - Encounter for general adult medical examination without abnormal findings Quality Reporting (2019) Depression/Bipolar (159/160/161/177) PHQ-9: Total score: 0 Coding Level of Care Code Medicare Subsequent (G0439) Diagnoses Medicare annual wellness visit, subsequent Z00.00 BPH (benign prostatic hyperplasia) N40.0 Nephrolithiasis N20.0 Colon cancer screening Z12.11 Hypercholesterolemia E78.00 Impaired glucose tolerance R73.02 Paroxysmal atrial fibrillation I48.0 CPT Codes Advance Care Planning - Time spent: 1-15 minutes, on File ([id number]) Advance Care Planning Advance Care Planning discussion: Completed/Scanned Date of discussion: 06/18/24 Who was present: Patient - forms were sent home with patient Forms completed: Health Care Proxy and [facility] Time spent: 1-15 minutes, on File Actual minutes spent: 10
== END 2024-06-18 15:01 | disposition home or self-care (01) ==
PROVIDERS: PCP Internal Medicine
DX: Z00.00 Encounter for general adult medical examination without abnormal findings (principal); N40.0 Benign prostatic hyperplasia without lower urinary tract symptoms; I48.0 Paroxysmal atrial fibrillation; N20.0 Calculus of kidney; Z12.11 Encounter for screening for malignant neoplasm of colon; E78.00 Pure hypercholesterolemia, unspecified; R73.02 Impaired glucose tolerance (oral)
CPT/HCPCS: 1123F; G0439

== ENCOUNTER → 2024-08-27 07:40 | Outpatient (REF) | payer MEDICARE, SELFPAY ==
--- NOTE | ~2024-08-27 | NM_ITS ---
Lexiscan Myocardial perfusion study Indication: Atrial fibrillation, on antiarrhythmic therapy Technique: The patient was brought in for a Lexiscan perfusion study on 08/27/2024 and was injected 0.4 mg of Lexiscan intravenously. Within a minute of this injection 24 mCi of sestamibi was given intravenously. Images were obtained using the SPECT gamma camera interlaced with the gating device. Images were obtained in supine position. Resting perfusion study was performed on 08/30/2024. Patient was administered 24 mCi of sestamibi intravenously at rest. Images were then obtained in supine position. Total DLP 109 mGy-cm. Images were processed with the software and compared side to side in short axis, horizontal long axis and vertical long axis views. Findings: Raw aquisition reviewed. Arms by the patient's side. The stress perfusion study showed no significant perfusion abnormality. Both uncorrected as well as CT attenuation corrected images were reviewed. The gated study shows normal LV systolic function with calculated LVEF of 61%. LV cavity is normal in size. The gated study shows normal wall thickening and contraction of segments. Resting study shows no significant perfusion abnormality. Gating at rest reveals normal wall motion with ejection fraction at 69%. The findings are consistent with no clear reversible or fixed perfusion abnormality. NM/NM cardiolite stress test Impression: 1. Myocardial perfusion imaging study shows probably normal myocardial perfusion. No clear evidence of ischemia or infarction. 2. Gated LVEF is 61% during stress and 69% during rest. 3. Transient ischemic dilatation not present. EKG component of the test reported separately. Electronically signed by: Tobi Gomez MD 08/30/2024 04:18 PM EDT
--- NOTE | 2024-08-27 07:49 | CA_ITS ---
Acquisition Time: 2024-08-27 07:54:12 Total Exercise Time: 00:02:49 Test Indications: Abnormal ECG AFIB/SVT Medications: FLECAINIDE XARELTO METOPROLOL FLONASE Protocol: ANTONIO Max HR: 094 BPM 65% of Pred: 144 BPM Max BP: 144/058 mmHG Max Work Load: 4.6 METS Exercise stress test with exercise 2 min 49 sec of Antonio protocol with EKG change to a LBBB, asymptomatic. Exercise stopped and allowed to rest. After 1 min 20 sec LBBB changed back to baseline IVCD. Testing was changed to a pharmacological nuclear stress test with Lexiscan injection, while sitting and kicking his legs, without anginal symptoms, with isolated PVC, with normotensive response to exercise, with nondiagnostic EKG for ischemia. Nuclear images pending. Test reviewed with Dr Avila. Referred By: Jerry Turner Overread By: KELLY WASHINGTON
== END ==
LOC: HO.CARD 07:40
PROVIDERS: PCP Internal Medicine; Visit Provider Internal Medicine Cardiovascular Disease
DX: I48.0 Paroxysmal atrial fibrillation (principal); I47.10 Supraventricular tachycardia, unspecified; R93.1 Abnormal findings on diagnostic imaging of heart and coronary circulation
CPT/HCPCS: 78452; 93017; A9500; J0280; J2785

== ENCOUNTER → 2024-08-27 07:49 | Outpatient (BNV) | payer MEDICARE, SELFPAY | PROVIDERS: PCP Internal Medicine; Visit Provider Nurse Practitioner Family | DX: I49.3 Ventricular premature depolarization (principal); I44.7 Left bundle-branch block, unspecified | CPT/HCPCS: 78452; 93016; 93018 ==

== ENCOUNTER 2024-10-22 12:45 | Outpatient (REF) | payer MEDICARE, SELFPAY ==
--- NOTE | ~2024-10-22 | XR_ITS ---
EXAMINATION: XR RIBS, RIGHT CLINICAL INFORMATION: M54.9 - Dorsalgia, unspecified COMPARISON: Abdominal x-ray from 01/16/2022 TECHNIQUE: 3 views of the right ribs were obtained. FINDINGS: Heart is normal in size. There is a small right pleural effusion/pleural thickening with right lung base atelectasis. No pneumothorax. Left lung is clear. Acute nondisplaced fractures are seen within the right posterior lateral 10th, 11th and 12th ribs XR/XR ribs RT min 3V w CXR1V IMPRESSION: Acute nondisplaced fractures of the right posterior lateral 10th, 11th and 12th ribs. Small right pleural effusion/pleural thickening with right lung base atelectasis. Electronically signed by: Jason Pena MD 10/24/2024 11:05 AM RAMONITA
== END 2024-10-22 12:46 | disposition home or self-care (01) ==
LOC: HO.XRAY 12:45
PROVIDERS: PCP Internal Medicine; Visit Provider Internal Medicine
DX: M54.9 Dorsalgia, unspecified (principal); I25.10 Atherosclerotic heart disease of native coronary artery without angina pectoris; E78.00 Pure hypercholesterolemia, unspecified
CPT/HCPCS: 71101; 99212

== ENCOUNTER 2024-10-22 12:45 | Outpatient (AMB) | payer MEDICARE, SELFPAY ==
--- NOTE | 2024-10-22 12:46 | A.OFFPC_ITS ---
Vital Signs 3 10/22/24 12:47 Height 5 ft 8 in Weight 165 lb 4 oz BMI 25.1 BP 140/72 H Blood Pressure Location Lt brachial Position Sitting Pulse 64 Pulse Source Pulse Oximeter Pulse Oximetry (%) 100 Oxygen Delivery Method Room Air Intake Visit Reasons: Back pain (pedi) Intake Note: Patient is here to follow up on back pain and right side pain due to a fall. 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 The incident occurred this past Friday while visiting his daughter in [place]. The patient reports losing balance after standing up from a sitting position and turning suddenly, which led to a fall against the stairs. The stairs were carpeted, and he did not strike his head during the fall. The injury affects his left rib, described by the patient as sharp localized pain in a specific area. The patient was evaluated by his daughter, a physical therapist, who noted the area of tenderness. Since the fall, he has experienced progressive pain improvement but reports that certain activities like laughter and deep breaths exacerbate the pain. He states no pain on the spine or right side, with tenderness localized to the left ribs. The patient has noted some bowel habit changes since the fall but denies any respiratory symptoms. The patient has a history of coronary artery disease, with a recent high coronary artery calcium score of over 500 and a cholesterol level of 108, and has been questioning lifestyle adjustments and statin therapy. Recent blood pressure readings have also been noted, which are high during consultations. [facility] Medical History Screening for prostate cancer COVID-19 virus infection Medicare annual wellness visit, initial Thrombocytopenia Vitamin D deficiency Seizures Hepatitis History of torn meniscus of right knee Hypercholesterolemia Impaired glucose tolerance Paroxysmal atrial fibrillation SVT (supraventricular tachycardia) Surgical History Hx of colonoscopy Carpal tunnel syndrome S/P arthroscopic surgery of right knee History of left hip replacement Family History Father Medical history unknown Mother Medical history unknown Social History Housing: House Are you a primary career center advisor to a significant other at home: No Do you presently have visiting nurse or other home services: No Alcohol intake: current Alcohol intake frequency: a few times a week Alcohol type: wine Patient Tobacco Use Status: Never used Tobacco e-Cigarette/Vaping Use: Never Used Second Hand Smoke Exposure: No service: No Current occupational status: retired Cognitive needs: No Hearing needs: Yes Vision needs: Yes Questionnaire Thrive Questionnaire Date Thrive assessed: 01/14/24 AUDIT C Alcohol Use Questionnaire (AUDIT-C) 2. How many drinks containing alcohol do you have on a typical day when you are drinking?: 1 or 2 3. How often do you have six or more drinks on one occasion?: Never Total Score: 0 RANDY-7 AMB Questionnaire RANDY-7 Date RANDY - 7 assessed: 01/14/24 Source: Developed by Drs. Vipul Espinoza, Aidee Ji, Marcello Harrison and colleagues, with an educational chepe from [employer]. Physical exam (Primary Care) Vital Signs: Last Vital Signs Pulse 64 10/22/24 12:47 BP 140/72 H 10/22/24 12:47 Pulse Ox 100 10/22/24 12:47 Oxygen Delivery Method Room Air 10/22/24 12:47 BMI result Body Mass Index 25.1 Tobacco/Smoking Status: Tobacco use Status Tobacco use date assessed 10/22/24 10/22/24 12:56 Patient Tobacco Use Status Never used Tobacco 10/22/24 12:56 e-Cigarette/Vaping Use Never Used 10/22/24 12:56 Thrive Assessment: Date of Thrive Assessment Date Thrive assessed 01/14/24 10/22/24 12:56 Const General: alert; No acute distress Eyes Conjunctivae: conjunctivae normal Resp Auscultation: clear to auscultation bilaterally Cardio Rate: regular rate Rhythm: regular rhythm GI Inspection: Yes normal to inspection Back/Spine/Pelvis Back/spine/pelvis image: 2 1. Tender on palpation of the right posterior your lower rib area with no redness or swelling. Extrem General: Yes normal to inspection and No edema Coding Level of Care Code Est Pt Level 4 (88917) Diagnoses CAD (coronary artery disease) I25.10 Hypercholesterolemia E78.00 Paroxysmal atrial fibrillation I48.0 Fall W19.XXXA Upper back pain on right side M54.9 Assessment & Plan Assessment & Plan (1) CAD (coronary artery disease): Comment: 06/2024 AGATSON SCoRE 597 0 Agatston units ? No identifiable disease ?1 to 99 Agatston units ? Mild disease ?100 to 399 Agatston units ? Moderate disease ?=400 Agatston units ? Severe disease Code(s): I25.10 - Atherosclerotic heart disease of [place] coronary artery without angina pectoris Category: Medical (2) Hypercholesterolemia: Code(s): E78.00 - Pure hypercholesterolemia, unspecified Category: Medical (3) Paroxysmal atrial fibrillation: Code(s): I48.0 - Paroxysmal atrial fibrillation Category: Medical (4) Fall: Comment: 10/20/2024 Code(s): W19.XXXA - Unspecified fall, initial encounter Category: Medical (5) Upper back pain on right side: Code(s): M54.9 - Dorsalgia, unspecified Category: Medical Plan - Order a left rib x-ray to evaluate for fracture and confirm no pneumothorax. - Monitor pain progression and manage with acetaminophen as needed. - Instruct patient on deep breathing exercises to prevent atelectasis and pneumonia due to possible rib fracture. - Review cholesterol management, emphasizing lifestyle changes and consideration of statin therapy if subsequent cholesterol levels remain elevated. - Address hypertension with home monitoring and improvement in lifestyle habits. - Reinforce lifestyle interventions for coronary artery disease, prioritizing diet and exercise modifications. - Assist with home blood pressure monitoring technique to ensure accurate readings. - Review fall prevention strategies and balance exercises, considering physical therapy for vertigo management if needed. - Orders: Orders 2 XR ribs RT min 3V w CXR1V Today M54.9 - Dorsalgia, unspecified
[2024-10-22 12:47] VITALS: BP 140/72; PULSE 64; O2SAT 100; BMI 25.1
--- OUTSIDE RECORDS SUMMARY | 2024-10-22 12:47 | XMS_ITS | Data Portability ---
Author Organization [place] - [facility], Allergy Address [address] [address] Assessment No assessment recorded. Plan of Treatment Reminders Order Date Submit Date Provider Last Modified By Organization Details Last Modified Time Details Appointments None record ed. Lab None record ed. Referral None record ed. Procedures None record ed. Surgeries None record ed. Imaging None record ed. Medication Orders None record ed. Patient TargetsNo targets recorded. Patient InstructionsNo instructions recorded. Reason for Referral None Reported. Results Created Date Observation Date Name Description Value Unit Range Abnormal Flag Note LastModifiedBy Organization Detail LastModifiedTime 06/24/20 24 02/27/2024 imagi ng/di agnos tic resul t No observ ation record ed. [email or web address] Not Available 19:48:41 06/24/20 24 08/20/2021 imagi ng/di agnos tic resul t No observ ation record ed. [email or web address] Not Available 19:49:02 06/24/20 24 08/20/2021 imagi ng/di agnos tic resul t No observ ation record ed. [email or web address] Not Available 19:49:05 06/24/20 24 09/14/2021 imagi ng/di agnos tic resul t No observ ation record ed. [email or web address] Not Available 19:49:07 06/24/20 24 12/14/2021 audio gram No observ ation record ed. [email or web address] Not Available 19:49:10 06/24/20 24 01/11/2022 audio gram No observ ation record ed. [email or web address] Not Available 19:49:15 06/24/20 24 01/30/2022 audio gram No observ ation record ed. [email or web address] Not Available 19:49:18 06/24/20 24 02/27/2024 audio gram No observ ation record ed. [email or web address] Not Available 19:49:23 06/24/20 24 02/27/2024 audio gram No observ ation record ed. [email or web address] Not Available 19:49:27 06/24/20 24 04/26/2022 audio gram No observ ation record ed. [email or web address] Not Available 19:49:30 06/24/20 24 06/24/2023 audio gram No observ ation record ed. [email or web address] Not Available 19:49:34 06/24/20 24 08/18/2023 audio gram No observ ation record ed. [email or web address] Not Available 19:49:53 06/24/20 24 08/20/2021 audio gram No observ ation record ed. [email or web address] Not Available 19:50:01 06/24/20 24 10/19/2021 audio gram No observ ation record ed. [email or web address] Not Available 19:50:10 Result Notes None recorded. Problems Name Problem SNOMED Code Status Onset Date Resolution Date Notes Provider Name and Address Organization Details Recorded Time Sensorine ural hearing loss of bilateral ears 808938047 Active 2020 Sensorine ural hearing loss, bilateral ; Note: Date Diagnosed : 11:06 AM (H90.3) Not Available [facility] 4 03:08:02 Gastroeso phageal reflux disease without esophagit is 546143496 Active 2020 Gastro-es ophageal reflux disease without esophagit is; Note: Date Diagnosed : 07/31/2021 11:33 AM (K21.9) Not Available [facility] 4 03:08:01 Impacted cerumen of bilateral ears 10849682873 31185 Active 2020 Impacted cerumen, bilateral ; Note: Date Diagnosed : 1 1:17 PM (H61.23) Not Available [facility] 4 03:08:02 Acute pansinusi tis 9865450 Active 2021 Acute pansinusi tis, unspecifi ed; Note: Date Diagnosed : 2 9:52 AM (J01.40) Not Available [facility] 4 03:08:00 Problem Notes None recorded. Procedures Surgical History None recorded. Imaging Results Imaging Date Name Status LastModified by [facility] Details LastModified Time 02/27/2024 imaging/diagno stic result completed Information not available 06/24/2024 19:48:41 08/20/2021 imaging/diagno stic result completed Information not available 06/24/2024 19:49:02 08/20/2021 imaging/diagno stic result completed Information not available 06/24/2024 19:49:05 09/14/2021 imaging/diagno stic result completed Information not available 06/24/2024 19:49:07 12/14/2021 audiogram completed Information not available 06/24/2024 19:49:10 01/11/2022 audiogram completed Information not available 06/24/2024 19:49:15 01/30/2022 audiogram completed Information not available 06/24/2024 19:49:18 02/27/2024 audiogram completed Information not available 06/24/2024 19:49:23 02/27/2024 audiogram completed Information not available 06/24/2024 19:49:27 04/26/2022 audiogram completed Information not available 06/24/2024 19:49:30 06/24/2023 audiogram completed Information not available 06/24/2024 19:49:34 08/18/2023 audiogram completed Information not available 06/24/2024 19:49:53 08/20/2021 audiogram completed Information not available 06/24/2024 19:50:01 10/19/2021 audiogram completed Information not available 06/24/2024 19:50:10 Procedure Notes None recorded. Medical Equipment None Reported. Medications Name Sig Start Date Stop Date Status Note LastModified by Organization Details LastModified Time flecainide 50 mg tablet active Medication ID: [id number] Bran d Name: flecainide Send Method: E-Prescribe d Subs Allowed: subs OK Medicati onGenericNa me: flecainide Not Available Not Available Not Available metoprolol succinate ER 25 mg tablet,exten ded release 24 hr active Medication ID: [id number] Bran d Name: metoprolol succinate S end Method: E-Prescribe d Subs Allowed: subs OK Special Instruction : TAKE 1 TABLET BY MOUTH EVERY DAY Medicat ionGenericN jeny: metoprolol succinate Not Available Not Available Not Available Xarelto 20 mg tablet active Medication ID: [id number] Bran d Name: Xarelto Sen d Method: E-Prescribe d Subs Allowed: subs OK Special Instruction : TAKE 1 TABLET BY MOUTH EVERY DAY Medicat ionGenericN jeny: Xarelto Not Available Not Available Not Available Vitals None Recorded Social History None recorded. Functional Status None recorded. Mental Status None recorded. Family History Nothing Reported. Medical History No medical history recorded. Past Encounters Encounter ID Performer Location Encounter Start Date Encounter Closed Date Diagnosis/Indication Diagnosis SNOMED-CT Code Diagnosis ICD10 Code [id number] [facility] - [address] [address] 04/23/2024 15:51:14 05/24/2024 14:56:31 Sensorineural hearing loss of bilateral ears 912338203 H90.3 Health Concerns Section Related Observation LastModified by Organization Detai ls LastModified Time None Recorded Concern Status LastModified by Organization Details LastModified Time None Recorded Advance Directives Directive None Recorded Payers Encounter Date Sequence Insurance Name Policy Number Policy Moncada Covered Member ID Moncada Member ID Guarantor Name 04/23/2024 1 MEDICARE B-[place]: [facility] [employer] Tobias Morejon [id number] Tobias Morejon 04/23/2024 2 [facility] - DIRECT - [place] ZERO (HMO) [id number] Tobias Morejon [id number] Tobias Morejon Notes Date Note Type Note Provider Name and Address Organization Details Recorded Time 04/23/2024 text/html Been doing well so far since the new repair. MINERVA SCHMITT, [address] [address], [place], [address], [place] - [facility] 04/23/2024 16:16:54
--- OUTSIDE RECORDS SUMMARY | 2024-10-22 12:47 | XMS_ITS | Patient Health Record ---
Author Organization [facility] Address [address] [place] [address] Care Team Providers Care Stroboroma Operator Name Role Phone Tasha Nelson Primary Care Provider Gregorio Bishop Unavailable [phone] Allergies Allergen (clinical drug ingredient) Drug/Non Drug Allergy documented on EMR Reaction Allergy Type Onset Date Status Compazine seizure reaction Drug Allergy Active Reason For Referral No Information Medications Medication SIG (Take, Route, Frequency, Duration) Notes Start Date End Date Status Folic Acid 800 MCG 1 tablet Orally Once a day for 30 day(s) 11/23/2020 Active Flecainide Acetate 50 MG Oral for 90 Active Vitamin B12 1000 MCG 1 tablet Orally Onc e a day for 30 day(s) 11/23/2020 Active Metoprolol Succinate ER 25 MG Oral for 90 Active Metoprolol & Diet Manage Prod 25 1 Not-Taking Aspirin Adult Low Dose Not-Taking Xarelto 20 MG Oral for 90 Acti ve Vitamin D3 25 MCG (1000 UT) 1 tablet Orally Once a day for 30 day(s) 11/23/2020 Active Physical Therapy . . . 2-3x/week for 3- 4 weeks 12/20/2020 Not-Taking Night Splint AFO - L1930 as directed 12/20/2020 Active Immunizations Vaccine Route Administration Date Status Comme nts COVID-19 Moderna Vaccine Unknown 08/30/2021 Administered 1st 01/02/21 2nd 02/01/21 Influenza Unknown 07/27/2021 Administered Social History Tobacco Use: Social History Observation Description Date Details (start date - stop date) Never Smoker NA - NA Tobacco Use/Smoking Question Answer Notes Are you a: nonsmoker Alcohol Screen Question Answer Notes Did you have a drink containing alcohol in the p ast year? No Points 0 Interpretation Negative Tobacco use other than smoking: Question Answer Notes Are you an other tobacco user? No Problems Problem Type SNOMED Code ICD Code Onset Dates Problem Status W/U Status Risk Notes Problem Pain in left foot (3672220768790 07) Pain in left foot (M79.672) Active confirmed Problem Acquired hammer toe of right foot (3119582398582 105) Other hammer toe(s) (acquired), right foot (M20.41) Active confirmed Plan Of Treatment Pending Test Test Name Order Date X ray : Foot, left 2V 11/13/2015 X ray : Foot, right 3V 12/20/2020 X ray : Foot, right 3V 11/05/2021 Insurance Providers Payer Name Payer Address Payer Phone Subscriber Number Group Number Insured Name Patient Relationship to Insured Coverage Start Date Coverage End Date Medicare National Govt Sv[employer] [address] [place] [address] [id number] Tobias Morejon Self - patient is the insured [facility] [address] [place] [address] [id number] Tobias Morejon Self - patient is the insured Medical (General) History Medical History History ICD Code right knee left hip Arthritis Back,Hip,and Knee pain Broken bones Heart disease Hepatitis Numbness Measles Mumps Chicken pox Joint implants/screws Surgical History Surgery Date(Month/Year) right knee 2013 left hip 2010 carpal tunnel 2016 kidney stones 10/2021 endoscopy 11/2021
== END 2024-10-22 13:59 | disposition home or self-care (01) ==
PROVIDERS: PCP Internal Medicine; Visit Provider Internal Medicine
DX: I25.10 Atherosclerotic heart disease of native coronary artery without angina pectoris (principal); E78.00 Pure hypercholesterolemia, unspecified; I48.0 Paroxysmal atrial fibrillation; W19.XXXA Unspecified fall, initial encounter; M54.9 Dorsalgia, unspecified

== ENCOUNTER 2024-11-09 08:10 | Outpatient (REF) | payer MEDICARE, OTHER, SELFPAY ==
--- OUTSIDE RECORDS SUMMARY | 2024-11-09 08:16 | XMS_ITS | Patient Health Record ---
Author Organization [facility] Address [address] [place] [address] Care Team Providers Care Set Up Operator Name Role Phone Tasha Nelson Primary Care Provider Gregorio Bishop Unavailable [phone] Allergies Allergen (clinical drug ingredient) Drug/Non Drug [...] Risk Notes Problem Pain in left foot (9616801703783 07) Pain in left foot (M79.672) Active confirmed Problem Acquired hammer toe of right foot (8226098361856 105) Other hammer toe(s) (acquired), right foot [...] Medicare National Govt Svcs Inc [address] [facility] [place] [address] [id number] Tobias Morejon Self - patient is the insured [facility] [address] [place] [address] [id number] Tobias Morejon Self - patient is the insured Medical (General) History Medical History History ICD Code right knee left hip Arthritis Back,Hip,and Knee pain Broken bones Heart disease Hepatitis Numbness Measles Mumps Chicken pox Joint implants/screws Surgical History Surgery Date(Month/Year) right knee 2013 left hip 2010 carpal tunnel 2016 kidney stones 10/2021 endoscopy 11/2021
[2024-11-09 09:56] LABS: MANUAL DIFF FLAG NO
[2024-11-09 10:08] LABS: Basophils Percent Auto 0.4 % (0-2); Eosinophils Absolute Auto 0.1 X10*3/uL (0.0-0.4); Eosinophils Percent Auto 2.4 % (0-4); Hematocrit 42.8 % (42.0-52.0); Hemoglobin 14.8 g/dl (14.0-18.0); Imm Gran Abs Auto 0.02 X10*3/uL (0.00-0.03); Imm Gran Pct Auto 0.4 % (0.0-0.4); Immature Retic Fraction 8.1 % (2.3-13.4); Lymphocytes Absolute Auto 1.3 X10*3/uL (1.2-4.9); Lymphocytes Percent Auto 28.9 % (20-40); Mean Corpuscular HGB Conc 34.6 g/dl (31.0-36.0); Mean Corpuscular Hemoglobin 33.9 pg (27.0-33.0); Mean Corpuscular Volume 97.9 fL (80.0-98.0); Mean Platelet Volume 10.7 fL (9.4-12.4); Monocytes Absolute Auto 0.5 X10*3/uL (0.1-1.2); Monocytes Percent Auto 10.4 % (2-11); Neutrophils Absolute Auto 2.6 x10*3/uL (2.0-8.3); Neutrophils Percent Auto 57.5 % (45-73); Platelet Count 166 X10*3/uL (160-400); Red Blood Count 4.37 X10*6/uL (4.60-5.80); Red Cell Distribution Width 12.4 % (11.0-16.0); Retic HGB Equivalent 37.8 pg (30.0-35.0); Reticulocyte Percent 1.5 % (0.5-1.8); Reticulocytes Absolute 0.066 X10*6/uL (0.026-0.095); White Blood Count 4.6 X10*3/uL (4.8-10.8)
[2024-11-09 10:15] LABS: Estimated Average Glucose 97 mg/dL; Hemoglobin A1C 120.5476 umol/L; Total Hemoglobin (HGBA1C) 3931.2048 umol/L
[2024-11-09 10:23] LABS: Alanine Aminotransferase 24 U/L (0-40); Alkaline Phosphatase 51 U/L (39-117); Anion Gap 9 (12-20); Aspartate Amino Transferase 29 U/L (5-37); Bilirubin Total 1.1 mg/dL (0.0-1.0); Blood Urea Nitrogen 17 mg/dL (9-16); Calcium 9.2 mg/dL (8.4-10.2); Carbon Dioxide 28 mmol/L (22-29); Chloride 108 mmol/L (96-108); Cholesterol 181 mg/dL (<200); Estimated Glomerular Filt Rate > 60; Glucose Random 91 mg/dL (60-115); HDL Cholesterol 66 mg/dL (>40); Iron 120 mcg/dL (45-160); LDL Cholesterol Calculated 105 mg/dL (<100); Percent Iron Saturation 48 % (15-50); Sodium 141 mmol/L (135-145); Total Iron Binding Capacity 250 mcg/dL (228-428); Total Protein 6.9 g/dL (6.5-8.0); Triglycerides 52 mg/dL (<150); Unsaturated Iron Binding 130 ug/dL
[2024-11-09 10:44] LABS: Ferritin 243 ng/mL (20-250); Thyroid Stimulating Hormone 1.66 uIU/mL (0.32-4.0)
== END 2024-11-09 08:11 | disposition home or self-care (01) ==
LOC: HO.HMGCLDS 08:10
PROVIDERS: PCP Internal Medicine; Visit Provider Internal Medicine
DX: E78.00 Pure hypercholesterolemia, unspecified (principal); R73.02 Impaired glucose tolerance (oral)
CPT/HCPCS: 36415; 80053; 80061; 82728; 83036; 83540; 84443; 85025; 85045

== ENCOUNTER 2024-12-20 07:45 | Outpatient (AMB) | payer MEDICARE, OTHER, SELFPAY ==
--- OUTSIDE RECORDS SUMMARY | 2024-12-20 07:48 | XMS_ITS | Patient Health Record ---
Author [facility] Address [address] [place] [address] Care Team Providers Care Street Sweeper Name Role Phone Tasha Nelson Primary Care Provider Gregorio Bishop Unavailable [phone] Allergies Allergen (clinical drug ingredient) Drug/Non Drug [...] Risk Notes Problem Pain in left foot (2491494601056 07) Pain in left foot (M79.672) Active confirmed Problem Acquired hammer toe of right foot (6224613769119 105) Other hammer toe(s) (acquired), right foot [...] Medicare National Govt Svcs Inc [address] [place] [address] [id number] Tobias Morejon Self - patient is the insured [facility] [address] [place] [address] [id number] Tobias Morejon Self - patient is the insured Medical (General) History Medical History History ICD Code right knee left hip Arthritis Back,Hip,and Knee pain Broken bones Heart disease Hepatitis Numbness Measles Mumps Chicken pox Joint implants/screws Surgical History Surgery Date(Month/Year) right knee 2013 left hip 2010 carpal tunnel 2016 kidney stones 10/2021 endoscopy 11/2021
--- OUTSIDE RECORDS SUMMARY | 2024-12-20 07:48 | XMS_ITS | Data Portability ---
Author Organization [place] - [facility], Allergy Address [address] [address] Assessment No assessment recorded. Plan of Treatment Reminders Order Date Submit Date Provider Last Modified By Organization Details Last Modified Time Details Appointments Establish ed 15 2024 09:00A M MARIE MONTAÑO MD Not available Not available Not available Lab None recorded. Referral None recorded. Procedures None recorded. Surgeries None recorded. Imaging None recorded. Medication Orders None recorded. Patient TargetsNo targets recorded. Patient InstructionsNo instructions [...] Sensorine ural hearing loss of bilateral ears 435617353 Active 2020 Sensorine ural hearing loss, bilateral ; Note: Date Diagnosed : 11:06 AM (H90.3) Not [facility] 03:[facility] Gastroeso phageal reflux disease without esophagit is 529946387 Active 2020 Gastro-es ophageal reflux disease without esophagit is; Note: Date Diagnosed : 07/31/2021 11:33 AM (K21.9) Not Available [facility] 4 03:08:01 Impacted cerumen of bilateral ears 77132557122 82988 Active 2020 Impacted cerumen, bilateral ; Note: Date Diagnosed : 1 1:17 PM (H61.23) Not Available [facility] 4 03:08:02 Acute pansinusi tis 7280054 Active 2021 Acute pansinusi tis, unspecifi ed; Note: Date Diagnosed : 2 9:52 AM (J01.40) Not Available [facility] 4 03:08:00 Problem Notes None recorded. Procedures Surgical History Date Name Laterality Status Provider Name and Address Organization Details Recorded Time 12/09/2024 FOL_DP cancelled MARIE MONTAÑO MD [address] [place] [address], [phone], [facility] - [facility] 12/08/2024 13:21:24 Imaging Results Imaging Date Name Status LastModified by Organiz ation Details LastModified Time 02/27/2024 imaging/diagno stic result [...] flecainide 50 mg tablet active Medication ID: [id number] Bran d Name: flecainide Send Method: E-Prescribe d Subs Allowed: subs OK Medicati onGenericNa me: flecainide Not Available Not Available Not Available metoprolol succinate ER 25 mg tablet,exten ded release 24 hr active Medication ID: [id number] Bran d Name: metoprolol succinate S end Method: E-Prescribe d Subs Allowed: subs OK Special Instruction : TAKE 1 TABLET BY MOUTH EVERY DAY Medicat ionGenericN jeny: metoprolol succinate Not Available Not Available Not Available Xarelto 20 mg tablet active Medication ID: [id number] Bran d Name: Xarelto Sen d Method: [...] Diagnosis/Indication Diagnosis SNOMED-CT Code Diagnosis ICD10 Code Diagnosis Note [id number] [facility] [facility] - [place] [address] [facility] [address] [place] [address] 04/23/2024 15:51:14 05/24/2024 14:56:31 Sensorineural hearing loss of bilateral ears 826025684 H90.3 Health Concerns Section Related Observation LastModified by Organization Detai ls LastModified Time None Recorded Concern Status LastModified by Organization Details LastModified Time None Recorded Advance Directives Directive None Recorded Payers Encounter Date Sequence Insurance Name Policy Number Policy Moncada Covered Member ID Moncada Member ID Guarantor Name 04/23/2024 1 MEDICARE B-CT: [facility] [employer] Tobias Morejon [id number] Tobias Morejon 04/23/2024 2 [facility] [employer] PLANS [facility] - DIRECT - [place] ZERO (HMO) [id number] Tobias Morejon [id number] Tobias Morejon Notes Date Note Type Note Provider Name and Address Organization Details Recorded Time 04/23/2024 text/html Been doing well so far since the new repair. MINERVA SCHMITT, [address] [address], [place], [address], [facility] - [facility] 04/23/2024 16:16:54
--- NOTE | 2024-12-20 08:06 | MHC.PC.OV ---
Vital Signs 12/20/24 08:08 Height 5 ft 8 in Weight 166 lb 4 oz BMI 25.3 BP 120/60 Blood Pressure Location Lt brachial Position Sitting Pulse 53 Pulse Source Pulse Oximeter Temp 97.1 F Temp Source Temporal Artery Scan Pulse Oximetry (%) 99 Oxygen Delivery Method Room Air Intake Visit Reasons: f/u Afib Intake Note: Patient is here to follow up on Afib. Rn Neurology Required: No Clinical Writer: Not Required per policy Accompanied by: Self / Same As Patient Allergies prochlorperazine [From COMPAZINE] Allergy (Severe, Verified 12/20/24 08:08) N/V SEIZURES, Medication List - Last Reconciled 12/20/24 by Naa Bonilla PA-C azelaic acid 15% 1 appl topical BID cholecalciferol (vitamin D3) 25 mcg PO DAILY cyanocobalamin (vitamin B-12) 1,000 mcg PO 2XW flecainide 50 mg PO BID fluticasone propionate 50 mcg/actuation (Flonase Allergy Relief) 2 sprays intranasal DAILY folic acid 0.8 mg PO 2XW metoprolol succinate ER 25 mg PO DAILY 90 days pyridoxine (vitamin B6) 50 mg PO DAILY 90 days rivaroxaban (Xarelto) 20 mg PO DAILY Tobacco use date assessed: 12/20/24 Fall risk assessment: No Falls in past year Last assessed Fall Risk: 12/20/24 Dental Screening Dental Screen Date: 12/20/24 Did you have a dental visit in the last 12 months?: Yes Did you have a dental problem in the last 6 months where you did not have access to dental care?: No Was dental information given to patient?: Patient has dentist HPI f/u Afib HPI Details 73-year-old male with atrial fibrillation on anticoagulation and flecainide, impaired glucose tolerance, hypercholesterolemia, BPH, and nephrolithiasis last seen 10/2024 coming in for follow up on AFib. Patient had elevated calcium score indicating coronary artery disease per last cardiology note recommending target LDL close to 70 and initiation of statin. Presenting with health concerns, including rib fractures from a fall, vertigo, and coronary artery disease. The patient has been making significant lifestyle changes, such as reducing cholesterol intake through diet, increasing hydration, and maintaining regular exercise, to manage his cardiovascular health. He will be seeing the physical therapist on Friday for vertigo and balance issues. [facility] Medical History Screening for prostate cancer COVID-19 virus infection Medicare annual wellness visit, initial Thrombocytopenia Vitamin D deficiency Seizures Hepatitis History of torn meniscus of right knee Hypercholesterolemia Impaired glucose tolerance Paroxysmal atrial fibrillation SVT (supraventricular tachycardia) Surgical History (Updated 12/20/24 @ 08:14 by TAJ Cook) History of tooth extraction Hx of colonoscopy Carpal tunnel syndrome S/P arthroscopic surgery of right knee History of left hip replacement Family History Father Medical history unknown Mother Medical history unknown Social History Housing: House Are you a primary healthcare business analyst to a significant other at home: No Do you presently have visiting nurse or other home services: No Alcohol intake: current Alcohol intake frequency: a few times a week Alcohol type: wine Patient Tobacco Use Status: Never used Tobacco e-Cigarette/Vaping Use: Never Used Second Hand Smoke Exposure: No service: No Current occupational status: retired Cognitive needs: No Hearing needs: Yes Vision needs: Yes Questionnaire PHQ-9 Over the last 2 weeks, how often have you been bothered by any of the following problems? 1. Little interest or pleasure in doing things: not at all 2. Feeling down, depressed, or hopeless: not at all 3. Trouble falling or staying asleep, or sleeping too much: not at all 4. Feeling tired or having little energy: not at all 5. Poor appetite or overeating: not at all 6. Feeling bad about yourself - or that you are a failure or have let yourself or your family down: not at all 7. Trouble concentrating on things, such as reading the newspaper or watching television: not at all 8. Moving or speaking so slowly that other people could have noticed. Or the opposite - being so fidgety or restless that you have been moving around a lot more than usual: not at all 9. Thoughts that you would be better off or of hurting yourself in some way: not at all Total score: 0 Depression Screening Interpretation: Negative Depression Screening Done: Yes Source: Developed by Drs. Vipul Espinoza, Aidee Ji, Marcello Harrison and colleagues, with an educational chepe from [employer]. Thrive Questionnaire Date Thrive assessed: 12/20/24 I am a: Patient What is your living situation today?: I have a steady place to live Within the past 12 months, did the food you bought not last and you didn't have the money to get more?: Never true Within the past 12 months, did you worry whether your food would run out before you got money to buy more?: Never true Do you have trouble paying for medicines?: No Do you have trouble getting transportation to medical appointments?: No Do you have trouble paying your heating and electricity bill?: No Do you have trouble taking care of your child, family member or friend?: No Do you have trouble with day-to-day activities such as bathing, preparing meals, shopping, managing finances, etc.?: No Are you currently unemployed and looking for a job?: No Are you interested in more education?: No Please select the resources that you would like help with: None Currently or been in a relationship where the following occur: No concerns reported THRIVE Score: 0 AUDIT C Alcohol Use Questionnaire (AUDIT-C) 2. How many drinks containing alcohol do you have on a typical day when you are drinking?: 1 or 2 Total Score: 0 RANDY-7 AMB Questionnaire RANDY-7 Date RANDY - 7 assessed: 12/20/24 Feeling nervous, anxious, or on edge: 0 = Not at all Not being able to stop or control worryin = Not at all Worrying too much about different things: 0 = Not at all Trouble relaxin = Not at all Being so restless that it is hard to sit still: 0 = Not at all Becoming easily annoyed or irritable: 0 = Not at all Feeling afraid as if something awful might happen: 0 = Not at all Total RANDY-7 score (0-4 normal; 5-9 mild; 10-14 moderate; 15-21 severe): 0 Source: Developed by Aidee Gao Kurt Kroenke and colleagues, with an educational chepe from [employer]. Review of Systems Const Denies body aches, Denies chills, Denies fever(s), Denies headache(s) and Denies poor appetite Eyes Reports no additional complaints ENT Denies dysphagia, Denies dizziness, Denies headache(s) and Denies odynophagia Card Denies chest pain, Denies syncope, Denies edema, Denies irregular heart rhythm, Denies lightheadedness and Denies dyspnea Resp Denies cough and Denies dyspnea GI Denies abdominal pain, Denies constipation, Denies dysphagia, Denies diarrhea, Denies nausea, Denies odynophagia and Denies vomiting Reports no additional complaints Musc Reports no additional complaints and Denies abnormal gait Skin/Breast Reports system reviewed and no additional complaints, except as documented Neuro Denies abnormal gait, Denies dizziness, Denies syncope and Denies headache(s) Psych Reports no additional complaints Physical exam (Primary Care) Vital Signs: Last Vital Signs Temp 97.1 F 12/20/24 08:08 Pulse 53 12/20/24 08:08 BP 120/60 12/20/24 08:08 Pulse Ox 99 12/20/24 08:08 Oxygen Delivery Method Room Air 12/20/24 08:08 BMI result Body Mass Index 25.3 Tobacco/Smoking Status: Tobacco use Status Tobacco use date assessed 12/20/24 12/20/24 08:12 Patient Tobacco Use Status Never used Tobacco 12/20/24 08:06 e-Cigarette/Vaping Use Never Used 12/20/24 08:06 PHQ-9: PHQ-9 Score PHQ-9: Total score 0 12/20/24 08:17 Depression Screening Interpretation: Negative Thrive Assessment: Date of Thrive Assessment Date Thrive assessed 12/20/24 12/20/24 08:17 Currently or been in a relationship where the following occur: No concerns reported Const General: cooperative, healthy appearing, comfortable and no acute distress Orientation/consciousness: patient oriented x3 HENMT Head: Yes normocephalic Ears: hearing grossly normal bilaterally General nose exam: Normal external nose present Eyes General: appearance normal, both eyes and all related structures Conjunctivae: conjunctivae normal Neck Neck: Yes full ROM and Yes no lymphadenopathy Resp Effort & Inspection: normal respiratory effort Auscultation: clear to auscultation bilaterally, no crackles, no rales, no rhonchi and no wheezes Cardio Rate: regular rate Rhythm: regular rhythm Skin General skin exam: no rashes or lesions noted Neuro General: patient oriented x3 Gait exam (Neuro): Normal gait present Extrem General: Yes normal to inspection, Yes full ROM and No edema Psych Affect: normal affect Attitude: cooperative Insight: Good insight present (Psych) Judgement: Good judgement present (Psych) Coding Level of Care Code Est Pt Level 4 (22382) Diagnoses Rib fractures S22.49XA CAD (coronary artery disease) I25.10 Hypercholesterolemia E78.00 Impaired glucose tolerance R73.02 Paroxysmal atrial fibrillation I48.0 Assessment & Plan Assessment & Plan (1) Rib fractures: Comment: October 2024 Acute nondisplaced fractures of the right posterior lateral 10th, 11th and 12th ribs. Small right pleural effusion/pleural thickening with right lung base atelectasis. Code(s): S22.49XA - Multiple fractures of ribs, unspecified side, initial encounter for closed fracture Category: Medical Plan: Patient states pain has resolved at this time continue to monitor symptoms. (2) CAD (coronary artery disease): Comment: 06/2024 AGATSON SCoRE 597 0 Agatston units ? No identifiable disease ?1 to 99 Agatston units ? Mild disease ?100 to 399 Agatston units ? Moderate disease ?=400 Agatston units ? Severe disease Code(s): I25.10 - Atherosclerotic heart disease of [place] coronary artery without angina pectoris Category: Medical Plan: Healthy diet and regular exercise is encouraged. Per last cardiology note if calcium score elevated recommending LDL close to 70 and possible initiation of statin. Given score of 597 indicating severe disease I discussed with the patient starting on a statin to reduce his overall cardiac risk. Advised good control of cholesterol, blood pressure and blood sugars. (3) Hypercholesterolemia: Code(s): E78.00 - Pure hypercholesterolemia, unspecified Category: Medical Plan: Avoid foods that are high in cholesterol such as red meat, fried foods, eggs and baked goods. Triglyceride goal of less than 150 and LDL goal of less than 70. Management includes addressing the indications of coronary artery disease with the drafting layout worker, focusing on initiating statin therapy for cholesterol control at a target of below 70 mg/dL. The patient is encouraged to continue lifestyle modifications, including maintaining a low-cholesterol diet and regular exercise. Patient would like to discuss the initiation of statin therapy with his drafting layout worker at tomorrow's visit. I discussed with him if he makes this visit to reach out to the office statin therapy is highly recommended. (4) Impaired glucose tolerance: Code(s): R73.02 - Impaired glucose tolerance (oral) Category: Medical Plan: Decrease the amount of carbohydrates such as pasta, bread, rice, and potatoes and limit the amount of sweets. Although fruits are generally healthy they should be eaten in moderation as they are still high in sugar. Last A1c within goal for this patient. (5) Paroxysmal atrial fibrillation: Code(s): I48.0 - Paroxysmal atrial fibrillation Category: Medical Plan: Continue to follow with Cardiology currently on anticoagulation with Xarelto and rate control with metoprolol and flecainide. Has a appointment with Cardiology tomorrow. Plan Patient was informed and verbally consented to the use of an ambient scribe for clinic note documentation during this visit. This note was constructed using voice recognition software. While every effort has been made to ensure accuracy and spreader box operator, still areas may have been included sometimes these areas may affect the content or meeting of the given symptoms. Total time spent caring for the patient today was 20 minutes. This includes time spent before the visit reviewing the chart, time spent during the visit, and time spent after the visit and documentation. Orders: Orders Lipid Panel 3 Months E78.00 - Pure hypercholesterolemia, unspecified
[2024-12-20 08:08] VITALS: BP 120/60; PULSE 53; TEMP 36.2; O2SAT 99; BMI 25.3
== END 2024-12-20 08:58 | disposition home or self-care (01) ==
PROVIDERS: PCP Internal Medicine
DX: S22.49XA Multiple fractures of ribs, unspecified side, initial encounter for closed fracture (principal); I25.10 Atherosclerotic heart disease of native coronary artery without angina pectoris; E78.00 Pure hypercholesterolemia, unspecified; R73.02 Impaired glucose tolerance (oral); I48.0 Paroxysmal atrial fibrillation

== ENCOUNTER → 2024-12-20 07:45 | Outpatient (BNVA) | payer MEDICARE, OTHER, SELFPAY | PROVIDERS: PCP Internal Medicine | DX: S22.49XD Multiple fractures of ribs, unspecified side, subsequent encounter for fracture with routine healing (principal); I25.10 Atherosclerotic heart disease of native coronary artery without angina pectoris; E78.00 Pure hypercholesterolemia, unspecified; R73.02 Impaired glucose tolerance (oral); I48.0 Paroxysmal atrial fibrillation | CPT/HCPCS: 99212 ==

== ENCOUNTER 2024-12-21 08:19 | Outpatient (AMB) | payer MEDICARE, SELFPAY ==
[2024-12-21 08:30] VITALS: BP 126/78; PULSE 51; BMI 25.1
--- NOTE | 2024-12-21 08:30 | A.OFFVIS_ITS ---
Vital Signs 12/21/24 08:30 Height 5 ft 8 in Weight 165 lb 5.547 oz BMI 25.1 BP 126/78 Blood Pressure Location Lt brachial Position Sitting Pulse 51 Intake Visit Reasons: 6 mth f/up Intake Note: 6 month follow-up with ekg feeling ok Pamphlet Distributor Required: No Allergies prochlorperazine [From COMPAZINE] Allergy (Severe, Verified 12/20/24 08:08) N/V SEIZURES, 1950's Medication List - Last Reconciled 12/21/24 by Jerry Turner MD azelaic acid 15% 1 appl topical BID cholecalciferol (vitamin D3) 25 mcg PO DAILY cyanocobalamin (vitamin B-12) 1,000 mcg PO 2XW flecainide 50 mg PO BID fluticasone propionate 50 mcg/actuation (Flonase Allergy Relief) 2 sprays intranasal DAILY PRN folic acid 0.8 mg PO 2XW metoprolol succinate ER 25 mg PO DAILY 90 days pyridoxine (vitamin B6) 50 mg PO DAILY 90 days rivaroxaban (Xarelto) 20 mg PO DAILY HPI Comments Details: Tobias comes for follow-up. Underwent a calcium score which showed significantly elevated calcium score predominantly in the LAD territory. Subsequently underwent a stress test. On a treadmill he was able to exercise but had a exercise-induced left bundle-branch block and had to be switch to Lexiscan myocardial perfusion imaging. No evidence of ischemia on myocardial perfusion imaging suggestive of nonobstructive coronary disease. He was no exertional chest pain. He has had no recurrent atrial fibrillation episodes. He denies any prolonged palpitation irregular heartbeat. No heart failure symptoms. Takes all his medications regularly. No bleeding issues or neurologic events. His LDL on a long run has been between 100-110 mg/dL. [facility] Medical History Screening for prostate cancer COVID-19 virus infection Medicare annual wellness visit, initial Thrombocytopenia Vitamin D deficiency Seizures Hepatitis History of torn meniscus of right knee Hypercholesterolemia Impaired glucose tolerance Paroxysmal atrial fibrillation SVT (supraventricular tachycardia) Surgical History History of tooth extraction Hx of colonoscopy Carpal tunnel syndrome S/P arthroscopic surgery of right knee History of left hip replacement Family History Father Medical history unknown Mother Medical history unknown Social History Housing: House Are you a primary acute care assistant to a significant other at home: No Do you presently have visiting nurse or other home services: No Alcohol intake: current Alcohol intake frequency: a few times a week Alcohol type: wine Patient Tobacco Use Status: Never used Tobacco e-Cigarette/Vaping Use: Never Used Second Hand Smoke Exposure: No service: No Current occupational status: retired Cognitive needs: No Hearing needs: Yes Vision needs: Yes Review of Systems Const Denies chills, Denies fatigue, Denies fever(s), Denies frequent falls, Denies weakness, Denies weight gain and Denies weight loss ENT Denies dizziness Card Denies chest pain, Denies leg edema, Denies lightheadedness, Denies palpitations, Denies dyspnea, Denies dyspnea on exertion, Denies orthopnea and Denies other (loss of consciousness) Resp Denies cough, Denies dyspnea and Denies dyspnea on exertion GI Denies hematochezia and Denies change in stool character Musc Denies abnormal gait, Denies muscle weakness, Denies numbness, Denies radiating pain into limb and Denies tingling Neuro Denies abnormal gait, Denies dizziness, Denies frequent falls, Denies numbness, Denies tingling and Denies weakness Endo Denies fatigue and Denies palpitations Physical Exam Vital Signs: Last Vital Signs Pulse 51 12/21/24 08:30 BP 126/78 12/21/24 08:30 BMI result Body Mass Index 25.1 Const General: cooperative, healthy appearing, comfortable and no acute distress Orientation/consciousness: patient oriented x3 HEENT Face and sinus: Yes normal facial exam Mouth: moist mucous membranes Neck Neck: Yes normal visual inspection, Yes full ROM and Yes trachea midline Chest Chest palpation & inspection: normal inspection of the chest Resp Effort & Inspection: normal respiratory effort, able to speak in complete sentences and no respiratory distress GI Inspection: Yes normal to inspection Back/Spine/Pelvis Cervical Spine: normal cervical lordosis Thoracic/Lumbar Spine: thoracic and lumbar spine normal to inspection Skin General skin exam: no rashes or lesions noted Neuro General: patient oriented x3, gait normal, tone normal and moves all extremities Extrem General: Yes normal to inspection and Yes capillary refill normal Office Procedures EKG Details: EKG shows sinus bradycardia with left axis deviation suggestive of left anterior fascicular block with LVH with [id number], Complete Assessment & Plan Assessment & Plan (1) Paroxysmal atrial fibrillation: Code(s): I48.0 - Paroxysmal atrial fibrillation Category: Medical Plan: Highly symptomatic paroxysmal atrial fibrillation as well SVT which has been suppressed on Multaq and flecainide therapy. However given his exercise-induced left bundle-branch block with low exercise activity which she performs at home will switch his flecainide therapy to an alternative therapy such as Multaq and refer him for EPS for ablation. We discussed the role of combined approach at this point time. Eventually once he has his ablation has had no recurrent atrial fibrillation will stop his Multaq therapy in the long run. Meanwhile will discontinue flecainide as metoprolol given his baseline bradycardia. Continue full oral anticoagulation, currently on Xarelto 20 mg daily. Semi annual renal function test should be pursued. (2) CAD (coronary artery disease): Comment: 06/2024 AGATSON SCoRE 597 0 Agatston units ? No identifiable disease ?1 to 99 Agatston units ? Mild disease ?100 to 399 Agatston units ? Moderate disease ?=400 Agatston units ? Severe disease Code(s): I25.10 - Atherosclerotic heart disease of [place] coronary artery without angina pectoris Category: Medical Plan: Coronary artery disease with extensive calcium score predominantly in the LAD with negative myocardial perfusion imaging suggestive of nonobstructive disease. Currently he is not having any anginal sounding chest discomfort. Continue aggressive risk factor modification. He is currently on Xarelto therapy and does not require alternative aspirin therapy and should be avoided to reduce bleeding risk. Continue aggressive vascular risk factor modification. Blood pressure is well optimized. Consider statin therapy. Discussed with him the role of statin therapy. He is agreeable. Will start him on atorvastatin 20 mg daily with follow-up lipid panel in 2 months time to target goal LDL closer to 55 mg/dL. Advised to call me with any new symptoms. Will follow up in the clinic in 7-10 days for EKG. With me in 3 months. Thank you for allowing me to partake in his care Orders: Orders CA echo transthoracic complete Today Jerry Turner MD I48.0 - Paroxysmal atrial fibrillation Lipid Panel 2 Months Jerry Turner MD I25.10 - Atherosclerotic heart disease of [place] coronary artery without angina pectoris Referrals Cardiac Electrophysiology Referral Jerry Turner MD I48.0 - Paroxysmal atrial fibrillation Medications: New dronedarone (Multaq) must administer with a meal/food 400 mg PO BID 60 tabs 5RF Jerry Turner MD atorvastatin (Lipitor) 20 mg PO DAILY 30 tabs 5RF Jerry Turner MD Changed From fluticasone propionate 50 mcg/actuation (Flonase Allergy Relief) administer into each nostril 2 sprays intranasal DAILY 16 grams 0RF To fluticasone propionate 50 mcg/actuation (Flonase Allergy Relief) administer into each nostril 2 sprays intranasal DAILY PRN Lorenver O Po, Discontinued metoprolol succinate ER Discontinued Reason: Doctor's Order 25 mg PO DAILY 90 days 90 tabs 3RF R73.02 - Impaired glucose tolerance (oral) flecainide Discontinued Reason: Doctor's Order 50 mg PO BID 180 tabs 3RF I47.1 - Supraventricular tachycardia, I48.0 - Paroxysmal atrial fibrillation Coding Level of Care Code Est Pt Level 4 (20390) Complex EM visit Add On G2211 Diagnoses Paroxysmal atrial fibrillation I48.0 CAD (coronary artery disease) I25.10 CPT Codes EKG - CPT: 96558-Njhkskaigolcqgeft, Complete ([id number])
--- OUTSIDE RECORDS SUMMARY | 2024-12-21 08:32 | XMS_ITS | Data Portability ---
Author Organization [place] - [facility], Allergy Address [address] [address] Assessment No assessment recorded. Plan of Treatment [...] Sensorine ural hearing loss of bilateral ears [id number] Active 2020 Sensorine ural hearing loss, bilateral ; Note: Date Diagnosed : 11:06 AM (H90.3) Not Available [facility] 03:08:02 Gastroeso phageal reflux disease without esophagit is [id number] Active 2020 Gastro-es ophageal reflux disease without esophagit is; Note: Date Diagnosed : 07/31/2021 11:33 AM (K21.9) Not Available [facility] 4 03:08:01 Impacted cerumen of bilateral ears [id number] 14053 Active 2020 Impacted cerumen, bilateral ; Note: Date Diagnosed : 1 1:17 PM (H61.23) Not Available [facility] 4 03:08:02 Acute pansinusi tis 9863501 Active 2021 Acute pansinusi tis, unspecifi ed; Note: Date Diagnosed : 2 9:52 AM (J01.40) Not Available [facility] 4 03:08:00 Problem Notes None recorded. Procedures Surgical History Date Name Laterality Status Provider Name and Address Organization Details Recorded Time 12/09/2024 FOL_DP cancelled MARIE MONTAÑO MD [address] [place] [address], [id number], [facility] - [facility] 12/08/2024 13:21:24 Imaging Results Imaging Date Name [...] flecainide 50 mg tablet active Medication ID: [id number] Bran d Name: flecainide Send Method: E-Prescribe d Subs Allowed: subs OK Medicati onGenericNa me: flecainide Not Available Not Available Not Available metoprolol succinate ER 25 mg tablet,exten ded release 24 hr active Medication ID: [id number] Bran d Name: metoprolol succinate S end Method: E-Prescribe d Subs Allowed: subs OK Special Instruction : TAKE 1 TABLET BY MOUTH EVERY DAY Medicat ionGenericN jeny: metoprolol succinate Not Available Not Available Not Available Xarelto 20 mg tablet active Medication ID: [id number] Bran d Name: Xarelto Sen d Method: [...] [id number] [facility] [place] [address] [facility] [address] [place] [address] 04/23/2024 15:51:14 05/24/2024 14:56:31 Sensorineural hearing loss of bilateral ears [id number] H90.3 Health Concerns Section Related Observation LastModified by Organization Detai ls LastModified Time None Recorded Concern Status LastModified by Organization Details LastModified Time None Recorded Advance Directives Directive None Recorded Payers Encounter Date Sequence Insurance Name Policy Number Policy [place] Covered Member ID [place] Member ID Guarantor Name 04/23/2024 1 MEDICARE B-[place]: [facility] [employer] Tobias Morejon [id number] Tobias Morejon 04/23/2024 2 [facility] [employer] PLANS [facility] - [place] (HMO) [id number] Tobias Morejon [id number] Tobias Morejon Notes Date Note Type Note Provider Name and Address Organization Details Recorded Time 04/23/2024 text/html Been doing well so far since the new repair. MINERVA SCHMITT, [address] [address], [place], [phone], [facility] - [facility] 04/23/2024 16:16:54
--- OUTSIDE RECORDS SUMMARY | 2024-12-21 08:32 | XMS_ITS | Patient Health Record ---
Author Organization [facility] Address [address] [place] [address] Care Team Providers Care Data Modeling Specialist Name Role Phone Tasha Nelson Primary Care Provider Gregorio Bishop Unavailable [phone] Allergies Allergen (clinical drug ingredient) Drug/Non Drug [...] Risk Notes Problem Pain in left foot (0344430997340 07) Pain in left foot (M79.672) Active confirmed Problem Acquired hammer toe of right foot (4569236709576 105) Other hammer toe(s) (acquired), right foot [...] Medicare National [employer] [address] [facility] [address] [id number] Tobias Morejon Self - patient is the insured [facility] [address] [place] [address] [id number] Tobias Morejon Self - patient is the insured Medical (General) History Medical History History ICD Code right knee left hip Arthritis Back,Hip,and Knee pain Broken bones Heart disease Hepatitis Numbness Measles Mumps Chicken pox Joint implants/screws Surgical History Surgery Date(Month/Year) right knee 2013 left hip 2010 carpal tunnel 2016 kidney stones 10/2021 endoscopy 11/2021
== END 2024-12-21 09:07 | disposition home or self-care (01) ==
PROVIDERS: PCP Internal Medicine; Visit Provider Internal Medicine Cardiovascular Disease
DX: I48.0 Paroxysmal atrial fibrillation (principal); I25.10 Atherosclerotic heart disease of native coronary artery without angina pectoris
CPT/HCPCS: 93010; 99214; G2211

== ENCOUNTER → 2024-12-21 08:19 | Outpatient (BNVA) | payer MEDICARE, SELFPAY | PROVIDERS: PCP Internal Medicine; Visit Provider Internal Medicine Cardiovascular Disease | DX: I25.10 Atherosclerotic heart disease of native coronary artery without angina pectoris (principal); I48.0 Paroxysmal atrial fibrillation; I47.10 Supraventricular tachycardia, unspecified | CPT/HCPCS: 93005; 99212 ==

== ENCOUNTER 2025-01-10 08:13 | Outpatient (REF) | payer MEDICARE, OTHER, SELFPAY ==
--- OUTSIDE RECORDS SUMMARY | 2025-01-10 08:19 | XMS_ITS | Continuity of Care Document ---
Author Organization [place] - [facility], [facility] Address [address] [place] [address] Care Team Providers Care Pool Lifeguard Name Role Phone AVEL VÁZQUEZ Primary Care Provider [phone] Assessment Encounter Date Assessment Date Assessment LastModified by Organization Details LastModified Time 01/06/2025 01/06/2025 Patient describes several weeks of hoarse vocal changes. He was given advice to sing loudly and project his voice which then improved his vocal quality for the remainder of the day. He does appreciate some mucus in the morning which clears. Today his exam was unremarkable, his voice appeared normal while we discussed his history. He did in fact perform his vocal exercises prior to the appointment. His fiberoptic exam of the larynx was benign with no nodules or abnormal findings. I do believe his vocal changes are related to poor breath support which improves with vocal exercises of warming up [email or web address] Not available 01/06/2025 09:08:35 Plan of Treatment Reminders Order Date Submit Date Provider Last Modified By Organization Details Last Modified Time Details Appointments None record ed. Lab None record ed. Referral None record ed. Procedures None record ed. Surgeries None record ed. Imaging None record ed. Medication Orders None record ed. Patient TargetsNo targets recorded. Patient InstructionsNo instructions recorded. Reason for Referral None Reported. Problems Name Problem SNOMED Code Status Onset Date Resolution Date Notes Provider Name and Address Organization Details Recorded Time Sensorine ural hearing loss of bilateral ears 419780122 Active 2020 Sensorine ural hearing loss, bilateral ; Note: Date Diagnosed : 1 11:06 AM (H90.3) Not Available [facility] 4 03:08:02 Gastroeso phageal reflux disease without esophagit is 748239856 Active 2020 Gastro-es ophageal reflux disease without esophagit is; Note: Date Diagnosed : 07/31/2021 11:33 AM (K21.9) Not Available [facility] 4 03:08:01 Impacted cerumen of bilateral ears 42362290866 58545 Active 2020 Impacted cerumen, bilateral ; Note: Date Diagnosed : 1 1:17 PM (H61.23) Not Available [facility] 4 03:08:02 Acute pansinusi tis 6917908 Active 2021 Acute pansinusi tis, unspecifi ed; Note: Date Diagnosed : 2 9:52 AM (J01.40) Not Available [facility] 4 03:08:00 Chronic hoarsenes s 01416490199 05 Active 2024 MARIE MONTAÑO MD [address] [place] [address], [phone] , [facility] 5 09:07:07 Problem Notes None recorded. Procedures Surgical History Date Name Laterality Status Provider Name and Address Organization Details Recorded Time 01/06/2025 FOL_DP completed MARIE MONTAÑO MD [address] [place] [address], [phone], [facility] 01/05/2025 17:15:58 12/09/2024 FOL_DP cancelled MARIE MONTAÑO MD [address] [place] [address], [phone], [facility] 12/08/2024 13:21:24 Imaging Results None recorded. Procedure Notes None recorded. Medical Equipment None Reported. Medications Name Sig Start Date Stop Date Status Note LastModified by Organization Details LastModified Time flecainide 50 mg tablet active Medication ID: [id number] Reuben mendenhall Name: flecainide Send Method: E-Prescribe d Subs Allowed: subs OK Medicati onGenericNa me: flecainide Not Available Not Available Not Available metoprolol succinate ER 25 mg tablet,exten ded release 24 hr active Medication ID: [id number] Bran d Name: metoprolol succinate S end Method: E-Prescribe d Subs Allowed: subs OK Special Instruction : TAKE 1 TABLET BY MOUTH EVERY DAY Medicat ionGenericN jeny: metoprolol succinate Not Available Not Available Not Available Xarelto 20 mg tablet active Medication ID: [id number] Bran d Name: Xarelto Sen d Method: E-Prescribe d Subs Allowed: subs OK Special Instruction : TAKE 1 TABLET BY MOUTH EVERY DAY Medicat ionGenericN jeny: Xarelto Not Available Not Available Not Available Vitals Date Recorded Body height Body mass index (BMI) Body weight Provider Name and Address Organization Details Last Updated DateTime 01/06/2025 172.72 cm 23.9 kg/m2 18416 g Nicholas Snow [place] - [facility] 01/06/2025 08:52:10 Social History None recorded. Functional Status None recorded. Mental Status None recorded. Family History Nothing Reported. Medical History No medical history recorded. Past Encounters Encounter ID Performer Location Encounter Start Date Encounter Closed Date Diagnosis/Indication Diagnosis SNOMED-CT Code Diagnosis ICD10 Code Diagnosis Note [id number] MARIE MONTAÑO MD [facility] of [address] [address] 01/06/2025 08:36:52 01/06/2025 09:08:50 Chronic hoarseness 4421861615 105 R49.0 Health Concerns Section Related Observation LastModified by Organization Detai ls LastModified Time None Recorded Concern Status LastModified by Organization Details LastModified Time None Recorded Payers Encounter Date Sequence Insurance Name Policy Number Policy Moncada Covered Member ID Moncada Member ID Guarantor Name 01/06/2025 1 [place] [employer] Tobias Morejon [id number] Tobias Morejon 01/06/2025 2 [facility] (MEDICARE SUPPLEMENT) Tobias Morejon [id number] Tobias Morejon Notes Date Note Type Note Provider Name and Address Organization Details Recorded Time 01/06/2025 text/html hoarseno relief with sips of waterimproves with practice singing loudly PV 02/27/24 [place], cerumen. Hearing aids with Hali MONTAÑO MD [address] [place] [address], [phone], [facility] - [facility] 01/06/2025 09:08:51
--- OUTSIDE RECORDS SUMMARY | 2025-01-10 08:19 | XMS_ITS | Data Portability ---
Author Organization [place] - [facility], Allergy Address [address] [place] [phone] Care Team Providers Care User Support Analyst Name Role Phone GURPREETAVEL Primary Care Provider [phone] Assessment Encounter Date Assessment Date Assessment LastModified [...] Sensorine ural hearing loss of bilateral ears 796682113 Active 2020 Sensorine ural hearing loss, bilateral ; Note: Date Diagnosed : 1 11:06 AM (H90.3) Not Available [facility] 4 03:08:02 Gastroeso phageal reflux disease without esophagit is 941577100 Active 2020 Gastro-es ophageal reflux disease without esophagit is; Note: Date Diagnosed : 07/31/2021 11:33 AM (K21.9) Not Available [facility] 4 03:08:01 Impacted cerumen of bilateral ears 66532084427 34276 Active 2020 Impacted cerumen, bilateral ; Note: Date Diagnosed : 1 1:17 PM (H61.23) Not Available [facility] 4 03:08:02 Acute pansinusi tis 2061310 Active 2021 Acute pansinusi tis, unspecifi ed; Note: Date Diagnosed : 2 9:52 AM (J01.40) Not Available [facility] 4 03:08:00 Chronic hoarsenes s 57218076117 05 Active 2024 MARIE MONTAÑO MD [address] [place] [address], [phone] , [place] - [facility] 5 09:07:07 Problem Notes None recorded. Procedures Surgical History Date Name Laterality Status Provider Name and Address Organization Details Recorded Time 01/06/2025 FOL_DP completed MARIE MONTAÑO MD [address] [place] [address], [phone], [place] - [facility] 01/05/2025 17:15:58 12/09/2024 FOL_DP cancelled MARIE MONTAÑO MD [address] [place] [address], [phone], [place] - [facility] 12/08/2024 13:21:24 Imaging Results Imaging Date Name Status LastModified by [facility] Details LastModified Time 02/27/2024 imaging/diagno [...] flecainide 50 mg tablet active Medication ID: [id number] Bran d Name: flecainide Send Method: E-Prescribe d Subs Allowed: subs OK Medicati onGenericNa me: flecainide Not Available Not Available Not Available metoprolol succinate ER 25 mg tablet,exten ded release 24 hr active Medication ID: [id number] Reuben d Name: metoprolol succinate S end Method: E-Prescribe d Subs Allowed: subs OK Special Instruction : TAKE 1 TABLET BY MOUTH EVERY DAY Medicat ionGenericN jeny: metoprolol succinate Not Available Not Available Not Available Xarelto 20 mg tablet active Medication ID: [id number] Bran d Name: Xarelto Sen d Method: E-Prescribe d Subs Allowed: subs OK Special Instruction : TAKE 1 TABLET BY MOUTH EVERY DAY Medicat ionGenericN jeny: Xarelto Not Available Not Available Not Available Vitals Date Recorded Body height Body mass index (BMI) Body weight Provider Name and Address Organization Details Last Updated DateTime 01/06/2025 172.72 cm 23.9 kg/m2 47029 g Nicholas Snow [place] - [facility] 01/06/2025 08:52:10 Social History None recorded. Functional Status None recorded. Mental Status None recorded. Family History Nothing Reported. Medical History No medical history recorded. Past Encounters Encounter ID Performer Location Encounter Start Date Encounter Closed Date Diagnosis/Indication Diagnosis SNOMED-CT Code Diagnosis ICD10 Code Diagnosis Note [id number] [facility] [place] [address] [place] [address] 04/23/2024 15:51:14 05/24/2024 14:56:31 Sensorineural hearing loss of bilateral ears 126624005 H90.3 [id number] MARIE MONTAÑO MD [facility] of [address] [address] 01/06/2025 08:36:52 01/06/2025 09:08:50 Chronic hoarseness 4550270389 105 R49.0 Health Concerns Section Related Observation LastModified by Organization Detai ls LastModified Time None Recorded Concern Status LastModified by Organization Details LastModified Time None Recorded Advance Directives Directive None Recorded Payers Encounter Date Sequence Insurance Name Policy Number Policy Moncada Covered Member ID Moncada Member ID Guarantor Name 04/23/2024 1 [place] B-[place]: [employer] Tobias Morejon [id number] Tobias Nair Jean-Pierre 04/23/2024 2 [facility] - DIRECT - [place] (HMO) [id number] Tobias Torrest [id number] Tobias Nair Jean-Pierre 01/06/2025 1 MEDICARE B-[place]: NATIONAL GOVERNMENT SERVICES Tobias Morejon [id number] Tobias Nair Jean-Pierre 01/06/2025 2 [facility] (MEDICARE SUPPLEMENT) Tobias Nair Jean-Pierre [id number] Tobias Nair Jean-Pierre Notes Date Note Type Note Provider Name and Address Organization Details Recorded Time 04/23/2024 text/html Been doing well so far since the new repair. MAC STEVENS [address], [phone], [facility] - [facility] 04/23/2024 16:16:54 01/06/2025 text/html hoarseno relief with sips of waterimproves with practice singing loudly PV 02/27/24 sinai Herman. Hearing aids with Hali MONTAÑO MD [address] [place] [address], [phone], [facility] - [facility] 01/06/2025 09:08:51
--- OUTSIDE RECORDS SUMMARY | 2025-01-10 08:20 | XMS_ITS | Patient Health Record ---
Author Organization [facility] Address [address] [facility] [place] [address] Care Team Providers Care Surface Hydrologist Name Role Phone Tasha Nelson Primary Care Provider Gregorio Bishop Unavailable [phone] Allergies Allergen (clinical drug ingredient) Drug/Non Drug [...] Risk Notes Problem Pain in left foot (6860586574293 07) Pain in left foot (M79.672) Active confirmed Problem Acquired hammer toe of right foot (8517998063459 105) Other hammer toe(s) (acquired), right foot [...] Medicare National Govt [employer] [address] [place] [address] [id number] Tobias Morejon Self - patient is the insured [facility] [address] [place] [address] [id number] Tobias Morejon Self - patient is the insured Medical (General) History Medical History History ICD Code right knee left hip Arthritis Back,Hip,and Knee pain Broken bones Heart disease Hepatitis Numbness Measles Mumps Chicken pox Joint implants/screws Surgical History Surgery Date(Month/Year) right knee 2013 left hip 2010 carpal tunnel 2016 kidney stones 10/2021 endoscopy 11/2021
[2025-01-10 09:42] LABS: Cholesterol 110 mg/dL (<200); HDL Cholesterol 50 mg/dL (>40); LDL Cholesterol Calculated 53 mg/dL (<100); Triglycerides 36 mg/dL (<150)
== END 2025-01-10 08:14 | disposition home or self-care (01) ==
LOC: HO.LAB 08:13
PROVIDERS: PCP Internal Medicine; Visit Provider Internal Medicine Cardiovascular Disease
DX: E78.00 Pure hypercholesterolemia, unspecified (principal)
CPT/HCPCS: 36415; 80061

== ENCOUNTER → 2025-01-13 07:54 | Outpatient (REF) | payer MEDICARE, OTHER, SELFPAY ==
--- OUTSIDE RECORDS SUMMARY | 2025-01-13 07:57 | XMS_ITS | Data Portability ---
Author Organization [place] - [facility], Allergy Address [address] [place] [address] Care Team Providers Care Mash Filter Operator Name Role Phone GURPREETAVEL Primary Care Provider Assessment Encounter Date Assessment Date Assessment LastModified [...] Sensorine ural hearing loss of bilateral ears 554766649 Active 2020 Sensorine ural hearing loss, bilateral ; Note: Date Diagnosed : 1 11:06 AM (H90.3) Not Available [facility] 4 03:08:02 Gastroeso phageal reflux disease without esophagit is 141587539 Active 2020 Gastro-es ophageal reflux disease without esophagit is; Note: Date Diagnosed : 07/31/2021 11:33 AM (K21.9) Not Available [facility] 4 03:08:01 Impacted cerumen of bilateral ears 43651158489 07207 Active 2020 Impacted cerumen, bilateral ; Note: Date Diagnosed : 1 1:17 PM (H61.23) Not Available [facility] 4 03:08:02 Acute pansinusi tis 9796667 Active 2021 Acute pansinusi tis, unspecifi ed; Note: Date Diagnosed : 2 9:52 AM (J01.40) Not Available [facility] 4 03:08:00 Chronic hoarsenes s 57140679947 05 Active 2024 MARIE MONTAÑO MD [address] [place] [address], [phone] , [place] - [facility] 5 09:07:07 Problem Notes None recorded. Procedures Surgical History Date Name Laterality Status Provider Name and Address Organization Details Recorded Time 01/06/2025 FOL_DP completed MARIE MONTAÑO MD [address] [place] [address], [phone], [place] - [facility] 01/05/2025 17:15:58 12/09/2024 FOL_DP cancelled MARIE MONTAÑO MD [address] [place] [address], [phone], [place] - [facility] 12/08/2024 13:21:24 Imaging Results Imaging Date Name Status LastModified by [facility] Details LastModified Time 02/27/2024 imaging/diagno stic result [...] flecainide 50 mg tablet active Medication ID: [id number] Bran d Name: flecainide Send Method: E-Prescribe d Subs Allowed: subs OK Medicati onGenericNa me: flecainide Not Available Not Available Not Available metoprolol succinate ER 25 mg tablet,exten ded release 24 hr active Medication ID: [id number] Reuben d Name: metoprolol succinate S end Method: E-Prescribe d Subs Allowed: subs OK Special Instruction : TAKE 1 TABLET BY MOUTH EVERY DAY Medicat ionGenericN jeny: metoprolol succinate Not Available Not Available Not Available Xarelto 20 mg tablet active Medication ID: [id number] Bran d Name: Xarelto Sen d Method: E-Prescribe d Subs Allowed: subs OK Special Instruction : TAKE 1 TABLET BY MOUTH EVERY DAY Medicat ionGenericN jeny: Xarelto Not Available Not Available Not Available Vitals Date Recorded Body height Body mass index (BMI) Body weight Provider Name and Address Organization Details Last Updated DateTime 01/06/2025 172.72 cm 23.9 kg/m2 01074 g Nicholas Snow [place] - [facility] 01/06/2025 08:52:10 Social History None recorded. Functional Status None recorded. Mental Status None recorded. Family History Nothing Reported. Medical History No medical history recorded. Past Encounters Encounter ID Performer Location Encounter Start Date Encounter Closed Date Diagnosis/Indication Diagnosis SNOMED-CT Code Diagnosis ICD10 Code Diagnosis Note [id number] [facility] [place] [address] [place] [address] 04/23/2024 15:51:14 05/24/2024 14:56:31 Sensorineural hearing loss of bilateral ears 978260699 H90.3 [id number] MARIE MONTAÑO MD [facility] of [address] [address] 01/06/2025 08:36:52 01/06/2025 09:08:50 Chronic hoarseness 4956732497 105 R49.0 Health Concerns Section Related Observation LastModified by Organization Detai ls LastModified Time None Recorded Concern Status LastModified by Organization Details LastModified Time None Recorded Advance Directives Directive None Recorded Payers Encounter Date Sequence Insurance Name Policy Number Policy Moncada Covered Member ID Moncada Member ID Guarantor Name 04/23/2024 1 [place] B-[place]: [employer] Tobias Morejon [id number] 0 Tobias Nair Jean-Pierre 04/23/2024 2 [facility] PLANS [facility] - DIRECT - [place] (HMO) [id number] Tobias Torrest [id number] Tobias Nair Jean-Pierre 01/06/2025 1 MEDICARE B-[place]: NATIONAL GOVERNMENT SERVICES Tobias Morejon [id number] Tobias Nair Jean-Pierre 01/06/2025 2 [facility] (MEDICARE SUPPLEMENT) Tobias Nair Jean-Pierre [id number] Tobias Nair Jean-Pierre Notes Date Note Type Note Provider Name and Address Organization Details Recorded Time 04/23/2024 text/html Been doing well so far since the new repair. MAC STEVENS [address], [address], [facility] - [facility] 04/23/2024 16:16:54 01/06/2025 text/html hoarseno relief with sips of waterimproves with practice singing loudly PV 02/27/24 sinai Herman. Hearing aids with Hali MONTAÑO MD [address] [place] [address], [phone], [facility] - [facility] 01/06/2025 09:08:51
--- OUTSIDE RECORDS SUMMARY | 2025-01-13 07:57 | XMS_ITS | Continuity of Care Document ---
Author Organization [place] - [facility], [facility] Address [address] [place] [address] Care Team Providers Care Hospital Internship Name Role Phone AVEL VÁZQUEZ Primary Care Provider Assessment Encounter Date Assessment [...] Sensorine ural hearing loss of bilateral ears 492027528 Active 2020 Sensorine ural hearing loss, bilateral ; Note: Date Diagnosed : 1 11:06 AM (H90.3) Not Available [facility] 4 03:08:02 Gastroeso phageal reflux disease without esophagit is 221818611 Active 2020 Gastro-es ophageal reflux disease without esophagit is; Note: Date Diagnosed : 07/31/2021 11:33 AM (K21.9) Not Available [facility] 4 03:08:01 Impacted cerumen of bilateral ears 76335481230 63661 Active 2020 Impacted cerumen, bilateral ; Note: Date Diagnosed : 1 1:17 PM (H61.23) Not Available [facility] 4 03:08:02 Acute pansinusi tis 0854913 Active 2021 Acute pansinusi tis, unspecifi ed; Note: Date Diagnosed : 2 9:52 AM (J01.40) Not Available [facility] 4 03:08:00 Chronic hoarsenes s 26991219328 05 Active 2024 MARIE MONTAÑO MD [address] [place] [address], [phone] , [facility] 5 09:07:07 Problem Notes None recorded. Procedures Surgical History Date Name Laterality Status Provider Name and Address Organization Details Recorded Time 01/06/2025 FOL_DP completed MARIE MONTAÑO MD [address] [place] [address], [phone], [facility] 01/05/2025 17:15:58 12/09/2024 FOL_DP cancelled MARIE MONTAÑO MD [address] [place] [address], [phone], [facility] 12/08/2024 13:21:24 Imaging Results None recorded. Procedure Notes None recorded. Medical Equipment None Reported. Medications Name Sig Start Date Stop Date Status Note LastModified by Organization Details LastModified Time flecainide 50 mg tablet active Medication ID: [id number] Reuben mendenhall Name: flecainide Send Method: E-Prescribe d Subs Allowed: subs OK Medicati onGenericNa me: flecainide Not Available Not Available Not Available metoprolol succinate ER 25 mg tablet,exten ded release 24 hr active Medication ID: [id number] Bran d Name: metoprolol succinate S end Method: E-Prescribe d Subs Allowed: subs OK Special Instruction : TAKE 1 TABLET BY MOUTH EVERY DAY Medicat ionGenericN jeny: metoprolol succinate Not Available Not Available Not Available Xarelto 20 mg tablet active Medication ID: [id number] Bran d Name: Xarelto Sen d Method: E-Prescribe d Subs Allowed: subs OK Special Instruction : TAKE 1 TABLET BY MOUTH EVERY DAY Medicat ionGenericN jeny: Xarelto Not Available Not Available Not Available Vitals Date Recorded Body height Body mass index (BMI) Body weight Provider Name and Address Organization Details Last Updated DateTime 01/06/2025 172.72 cm 23.9 kg/m2 66305 g Nicholas Snow [place] - [facility] 01/06/2025 08:52:10 Social History None recorded. Functional Status None recorded. Mental Status None recorded. Family History Nothing Reported. Medical History No medical history recorded. Past Encounters Encounter ID Performer Location Encounter Start Date Encounter Closed Date Diagnosis/Indication Diagnosis SNOMED-CT Code Diagnosis ICD10 Code Diagnosis Note [id number] MARIE MONTAÑO MD [facility] of [address] [address] 01/06/2025 08:36:52 01/06/2025 09:08:50 Chronic hoarseness 0042105912 105 R49.0 Health Concerns Section Related Observation LastModified by Organization Detai ls LastModified Time None Recorded Concern Status LastModified by Organization Details LastModified Time None Recorded Payers Encounter Date Sequence Insurance Name Policy Number Policy Moncada Covered Member ID Moncada Member ID Guarantor Name 01/06/2025 1 [place] [employer] GOVERNMENT [employer] Tobias Morejon [id number] Tobias Morejon 01/06/2025 2 [facility] (MEDICARE SUPPLEMENT) Tobias Morejon [id number] Tobias Morejon Notes Date Note Type Note Provider Name and Address Organization Details Recorded Time 01/06/2025 text/html hoarseno relief with sips of waterimproves with practice singing loudly PV 02/27/24 [place], cerumen. Hearing aids with Hali MONTAÑO MD [address] [place] [address], [phone], [facility] - [facility] 01/06/2025 09:08:51
--- OUTSIDE RECORDS SUMMARY | 2025-01-13 07:57 | XMS_ITS | Patient Health Record ---
[facility] Address [address] [place] [address] Care Team Providers Care Slab Depiler Operator Name Role Phone Tasha Nelson Primary Care Provider Gregorio Bishop Unavailable [phone] Allergies Allergen (clinical drug ingredient) Drug/Non Drug [...] Risk Notes Problem Pain in left foot (1397018599523 07) Pain in left foot (M79.672) Active confirmed Problem Acquired hammer toe of right foot (8925265549725 105) Other hammer toe(s) (acquired), right foot [...] Medicare [employer] [address] [place] [address] [id number] Tobias Morejon Self - patient is the insured [facility] [address] [place] [address] [id number] Tobias Morejon Self - patient is the insured Medical (General) History Medical History History ICD Code right knee left hip Arthritis Back,Hip,and Knee pain Broken bones Heart disease Hepatitis Numbness Measles Mumps Chicken pox Joint implants/screws Surgical History Surgery Date(Month/Year) right knee 2013 left hip 2010 carpal tunnel 2016 kidney stones 10/2021 endoscopy 11/2021
--- NOTE | 2025-01-13 07:59 | CA_ITS ---
Transthoracic Echocardiogram Patient (Last, First, Middle): Tobias Morejon E Gender: Male Date of : 1950 Age: 74 Procedure Date: 01/13/2025 Procedure Type: Transthoracic Echocardiogram Location: OP Height: 172.72 cm Weight: 74.84 kg BSA: 1.88 m2 Heart Rate: bpm BP: 126 / 78 mmHg Cisco Administrator: SHAYNE Referring MD: Jerry Turner MD Symptoms: I48.0 - Paroxysmal atrial fibrillation Study Quality: Adequate ECG Rhythm: Sinus Conclusions: - The left ventricular systolic function is normal. The visually estimated ejection fraction is between 65-70%. - There is mild to moderate tricuspid valve regurgitation. - Mild pulmonary hypertension is present. Findings Left Ventricle Normal left ventricular cavity size. There is normal left ventricular wall thickness. The left ventricular systolic function is normal. The visually estimated ejection fraction is between 65-70%. There is no evidence of regional wall motion abnormalities. Diastolic function is normal for age. Right Ventricle Normal right ventricular cavity size and systolic function. Atria The left atrium is mildly dilated. The right atrium is normal in size. Aortic Valve There is a normal trileaflet aortic valve. There is no aortic valve stenosis. There is no aortic valve regurgitation. Mitral Valve The mitral valve appears normal. There is no mitral valve regurgitation. There is no mitral valve stenosis. Pulmonic Valve The pulmonic valve is likely normal. Tricuspid Valve There is mild to moderate tricuspid valve regurgitation. Mild pulmonary hypertension is present. Great Vessels The asc aorta is normal in size. Venous The inferior vena cava is mildly dilated and collapses greater than 50% with inspiration. Pericardium/Pleural There is no evidence of pericardial effusion. Prior Study Comparison No significant change compared to prior study dated: 12/25/2022. Measurements 2D Linear Measurements IVSd: 0.88 0.6-0.9/0.6-1.0 cm LVIDd: 5.04 3.9-5.3/4.2-5.9 cm LVIDd Index: 2.68 2.4-3.2/2.2-3.1 cm/m2 LVIDs: 2.85 2.0-3.6 cm LVPWd: 0.83 0.7-1.1 cm LA Diam: 3.80 2.7-3.8/3.0-4.0 cm LAIDs Index: 2.02 1.5-2.3 cm/m2 LV Mass: 185.71 67-162/88-224 g LV Mass Index: 98.78 43-95/49-115 g/m2 LVOT Diam: 2.00 3.0+(-)1.3 cm 2D Systolic Function EF 4C: 65.90 >55% EF 2C: 72.70 >55% EF BiP: 69.50 >55% Mitral Valve MV Pk E: 0.91 MV PK A: 1.01 MV Decel Time: 328.00 E/A: 0.90 E'Lateral: 9.68 E'Medial: 6.31 E/E' Med: 14.50 E/E' Lat: 9.40 PHT: 96.00 MVA PHT: 2.29 Decel Boyle: 2.78 Aortic Valve AoV Pk Tino: 1.89 AoV Mn Tino: 1.23 AoV VTI: 0.42 AoV Pk Grad: 14.00 Aov Mn Grad: 7.00 JAMESON Cont.VTI: 2.46 LVOT LVOT Pk Tino: 1.45 LVOT Mn Tino: 0.94 LVOT VTI: 0.33 LVOT Pk Grad: 8.00 LVOT Mn Grad: 4.00 LVOT Diam: 2.00 LVOT Area: 3.14 Diastolic Function MV Pk E: 0.91 MV Pk A: 1.01 E/A: 0.90 E'Medial: 6.31 E/E' Med: 14.50 E' Laterial: 9.68 E/E' Lat: 9.40 Right Ventricle TAPSE (mm): 28.20 TVS' Tino: 14.60 Tricuspid Valve TR Pk Tino: 2.90 TR Pk Grad: 34.00 RA Press: 8.00 RVSP: 42.00 Great Vessels Aorta Ao Asc: 3.40 2.1-3.4 cm Updated in Other Vendor System with Status of Final Tobi Gomez MD electronically signed on 01/15/2025 11:23:46 AM with status of Final
== END ==
LOC: HO.CARD 07:54
PROVIDERS: PCP Internal Medicine; Visit Provider Internal Medicine Cardiovascular Disease
DX: I48.0 Paroxysmal atrial fibrillation (principal)
CPT/HCPCS: 93306

== ENCOUNTER → 2025-01-13 07:59 | Outpatient (BNV) | payer MEDICARE, OTHER, SELFPAY | PROVIDERS: PCP Internal Medicine; Visit Provider Internal Medicine | DX: I36.1 Nonrheumatic tricuspid (valve) insufficiency (principal); I27.20 Pulmonary hypertension, unspecified | CPT/HCPCS: 93306 ==

== ENCOUNTER 2025-02-09 09:29 | Outpatient (AMB) | payer MEDICARE, OTHER, SELFPAY ==
--- NOTE | 2025-02-09 09:33 | A.OFFVIS_ITS ---
Vital Signs 02/09/25 09:34 Height 5 ft 8 in Weight 163 lb 2.273 oz BMI 24.8 BP 110/68 Blood Pressure Location Lt brachial Position Sitting Pulse 54 Pulse Source Monitor Intake Visit Reasons: f/u after echo and med's change Allergies prochlorperazine [From COMPAZINE] Allergy (Severe, Verified 12/20/24 08:08) N/V SEIZURES, 1950's Medication List - Last Reconciled 02/09/25 by Jerry Turner MD atorvastatin (Lipitor) 20 mg PO DAILY cholecalciferol (vitamin D3) 25 mcg PO DAILY cyanocobalamin (vitamin B-12) 1,000 mcg PO 2XW dronedarone (Multaq) 400 mg PO BID fluticasone propionate 50 mcg/actuation (Flonase Allergy Relief) 2 sprays intranasal DAILY PRN pyridoxine (vitamin B6) 50 mg PO DAILY 90 days rivaroxaban (Xarelto) 20 mg PO DAILY HPI Comments Details: Aldo comes for follow-up. He was very anxious about starting Multaq but has been taking Multaq. He has not noticed any significant to Multaq therapy. He has not had any recurrent atrial fibrillation or prolonged palpitation irregular heartbeat. No exertional chest pain or shortness of breath. Remains very active. His LDL is well optimized at 53 mg/dL. He does complain of chronic cough with yellowish phlegm for which she is going to see Pulmonary in near future. He denies any lightheadedness, syncope. No bleeding issues or neurologic events. No heart failure symptoms. [facility] Medical History Screening for prostate cancer COVID-19 virus infection Medicare annual wellness visit, initial Thrombocytopenia Vitamin D deficiency Seizures Hepatitis History of torn meniscus of right knee Hypercholesterolemia Impaired glucose tolerance Paroxysmal atrial fibrillation SVT (supraventricular tachycardia) Surgical History History of tooth extraction Hx of colonoscopy Carpal tunnel syndrome S/P arthroscopic surgery of right knee History of left hip replacement Family History Father Medical history unknown Mother Medical history unknown Social History Housing: House Are you a primary critical care unit nurse to a significant other at home: No Do you presently have visiting nurse or other home services: No Alcohol intake: current Alcohol intake frequency: a few times a week Alcohol type: wine Patient Tobacco Use Status: Never used Tobacco e-Cigarette/Vaping Use: Never Used Second Hand Smoke Exposure: No service: No Current occupational status: retired Cognitive needs: No Hearing needs: Yes Vision needs: Yes Review of Systems Const Denies weakness ENT Denies dizziness Card Denies chest pain, Denies chest pain with activity, Denies syncope, Denies rapid heart rate, Denies pedal edema, Denies edema, Denies leg edema, Denies lightheadedness, Denies palpitations, Denies dyspnea, Denies dyspnea on exertion and Denies orthopnea Resp Denies cough, Denies dyspnea and Denies dyspnea on exertion GI Denies hematochezia and Denies change in stool character Musc Denies abnormal gait, Denies muscle cramps, Denies muscle weakness, Denies numbness, Denies radiating pain into limb and Denies tingling Neuro Denies abnormal gait, Denies dizziness, Denies syncope, Denies numbness, Denies tingling and Denies weakness Endo Denies palpitations Physical Exam Vital Signs: Last Vital Signs Pulse 54 02/09/25 09:34 BP 110/68 02/09/25 09:34 BMI result Body Mass Index 24.8 Const General: cooperative, healthy appearing, comfortable and no acute distress Orientation/consciousness: patient oriented x3 HEENT Face and sinus: Yes normal facial exam Mouth: moist mucous membranes Neck Neck: Yes normal visual inspection, Yes full ROM and Yes trachea midline Chest Chest palpation & inspection: normal inspection of the chest Resp Effort & Inspection: normal respiratory effort, able to speak in complete sentences and no respiratory distress GI Inspection: Yes normal to inspection Back/Spine/Pelvis Cervical Spine: normal cervical lordosis Thoracic/Lumbar Spine: thoracic and lumbar spine normal to inspection Skin General skin exam: no rashes or lesions noted Neuro General: patient oriented x3, gait normal, tone normal and moves all extremities Extrem General: Yes normal to inspection and Yes capillary refill normal Office Procedures EKG Details: EKG shows normal sinus rhythm with left anterior fascicular block at 54 beats per minute [id number], Complete Assessment & Plan Assessment & Plan (1) Paroxysmal atrial fibrillation: Code(s): I48.0 - Paroxysmal atrial fibrillation Category: Medical Plan: Highly symptomatic paroxysmal atrial fibrillation in this elderly gentleman which has remained suppressed on current Multaq therapy. Benign nature of overall antiarrhythmic drug therapy with Multaq was discussed. Potential side effects were discussed. Current time he is not experiencing any. Will need EKGs every 3 months. Was discussed with him. Continue rhythm control approach with Multaq. Continue full oral anticoagulation, currently on Xarelto 20 mg daily. Semi annual renal function test should be pursued. We discussed about possibility of ablation, although if he maintains rhythm on Multaq he does not require further therapy with ablation at this point in time. (2) CAD (coronary artery disease): Comment: 06/2024 AGATSON SCoRE 597 0 Agatston units ? No identifiable disease ?1 to 99 Agatston units ? Mild disease ?100 to 399 Agatston units ? Moderate disease ?=400 Agatston units ? Severe disease Code(s): I25.10 - Atherosclerotic heart disease of [place] coronary artery without angina pectoris Category: Medical Plan: Coronary artery disease with predominantly LAD territory calcium buildup. Currently not having any symptoms suggestive of angina. Myocardial perfusion imaging was within normal limits. Continue current atorvastatin therapy with well optimized LDL at 53 mg/dL. Continue oral anticoagulation therapy with X arelto. Will avoid antiplatelet therapy due to increased bleeding risk. Continue aggressive blood pressure control which is currently well optimized. Advised to maintain activity level as tolerated. Advised to call me with any new symptoms. Follow up in the clinic in 3 months for EKG and in 6 months with me. Thank you for allowing me to partake in his care Coding Level of Care Code Est Pt Level 4 (78959) Complex EM visit Add On G2211 Diagnoses Paroxysmal atrial fibrillation I48.0 CAD (coronary artery disease) I25.10 CPT Codes EKG - CPT: [id number], Complete ([id number])
[2025-02-09 09:34] VITALS: BP 110/68; PULSE 54; BMI 24.8
--- OUTSIDE RECORDS SUMMARY | 2025-02-09 10:17 | XMS_ITS | Patient Health Record ---
[facility] Address [address] [place] [address] Care Team Providers Care Balance Engineer Name Role Phone Tasha Nelson Primary Care Provider Gregorio Bishop Unavailable [phone] Allergies Allergen (clinical drug ingredient) Drug/Non Drug [...] Risk Notes Problem Pain in left foot ([id number] 07) Pain in left foot (M79.672) Active confirmed Problem Acquired hammer toe of right foot (4956443525338 105) Other hammer toe(s) (acquired), right foot [...] Medicare [employer] [address] [facility] [place] [address] [id number] Tobias Morejon Self - patient is the insured [facility] [address] [place] [address] [id number] Tobias Morejon Self - patient is the insured Medical (General) History Medical History History ICD Code right knee left hip Arthritis Back,Hip,and Knee pain Broken bones Heart disease Hepatitis Numbness Measles Mumps Chicken pox Joint implants/screws Surgical History Surgery Date(Month/Year) right knee 2013 left hip 2010 carpal tunnel 2016 kidney stones 10/2021 endoscopy 11/2021
== END 2025-02-09 10:05 | disposition home or self-care (01) ==
LOC: HO.HCS 09:29
PROVIDERS: PCP Internal Medicine; Visit Provider Internal Medicine Cardiovascular Disease
DX: I48.0 Paroxysmal atrial fibrillation (principal); I25.10 Atherosclerotic heart disease of native coronary artery without angina pectoris
CPT/HCPCS: 93010; 99214; G2211

== ENCOUNTER → 2025-02-09 09:29 | Outpatient (BNVA) | payer MEDICARE, OTHER, SELFPAY | PROVIDERS: PCP Internal Medicine; Visit Provider Internal Medicine Cardiovascular Disease | DX: I48.0 Paroxysmal atrial fibrillation (principal); I25.10 Atherosclerotic heart disease of native coronary artery without angina pectoris | CPT/HCPCS: 93005; 99212 ==

== ENCOUNTER 2025-02-23 10:16 | Outpatient (AMB) | payer MEDICARE, OTHER, SELFPAY ==
--- NOTE | 2025-02-23 08:57 | MHC.OFFVIS ---
Vital Signs 02/23/25 10:23 Height 5 ft 8 in Weight 170 lb BMI 25.8 BP 136/68 Blood Pressure Location Rt brachial Position Sitting Pulse 78 Pulse Source Pulse Oximeter Pulse Oximetry (%) 100 Oxygen Delivery Method Room Air Intake Visit Reasons: cough Take Out Waiter Required: No Lost Charge Card Clerk: Lost Charge Card Clerk offered & declined Accompanied by: Self / Same As Patient Allergies prochlorperazine [From COMPAZINE] Allergy (Severe, Verified 02/23/25 10:29) N/V SEIZURES, 1950's Medication List - Last Reconciled 02/23/25 by Sera Lopez LPN atorvastatin (Lipitor) 20 mg PO DAILY cholecalciferol (vitamin D3) 25 mcg PO DAILY cyanocobalamin (vitamin B-12) 1,000 mcg PO 2XW dronedarone (Multaq) 400 mg PO BID fluticasone propionate 50 mcg/actuation (Flonase Allergy Relief) 2 sprays intranasal DAILY PRN pyridoxine (vitamin B6) 50 mg PO DAILY 90 days rivaroxaban (Xarelto) 20 mg PO DAILY HPI HPI cough: Details: Tobias is a pleasant 74 year old male, never smoker, with underlying atrial fibrillation on Multaq/Xarelto, CAD, BPH and SVT. He was referred by PCP for pulmonary evaluation for chronic cough which has waxed and waned over the last 5 years. He reports cough is productive with yellow sputum, present in the morning and improves throughout the day. He denies prior antibiotics for this. He denies chest congestion, fever or chills. He denies any dyspnea, wheezing or chest tightness. He denies h/o asthma/COPD. PFT 2016 normal. He endorses second hand smoke as a child. He denies h/o recurrent URI. He also notes intermittent hoarseness, evaluated by ENT in the past with laryngoscope which was unremarkable and thought to be related to silent reflux. Reportedly worked up by GI without cause of symptoms and denies reflux symptoms. He endorses seasonal allergies, using Flonase with good effect, unsure if post nasal drip.He denies any pets at home. Denies recent allergy testing. He denies any occupational exposures. He denies any pertinent family history. [facility] Medical History Screening for prostate cancer COVID-19 virus infection Medicare annual wellness visit, initial Thrombocytopenia Vitamin D deficiency Seizures Hepatitis History of torn meniscus of right knee Hypercholesterolemia Impaired glucose tolerance Paroxysmal atrial fibrillation SVT (supraventricular tachycardia) Surgical History History of tooth extraction Hx of colonoscopy Carpal tunnel syndrome S/P arthroscopic surgery of right knee History of left hip replacement Family History Father Medical history unknown Mother Medical history unknown Social History Housing: House Are you a primary laboratory animal caretaker to a significant other at home: No Do you presently have visiting nurse or other home services: No Alcohol intake: current Alcohol intake frequency: a few times a week Alcohol type: wine Patient Tobacco Use Status: Never used Tobacco e-Cigarette/Vaping Use: Never Used Second Hand Smoke Exposure: No service: No Current occupational status: retired Cognitive needs: No Hearing needs: Yes Vision needs: Yes Review of Systems Const Denies chills, Denies excessive sweating, Denies fever(s), Denies headache(s) and Denies night sweats Eyes Denies dry eyes, Denies irritation and Denies itchy eyes ENT Reports Normal hearing present, Denies headache(s), Denies nasal congestion, Denies nasal discharge and Denies sore throat Card Denies chest pain, Denies chest pain at rest, Denies chest pain with activity, Denies claudication, Denies leg edema, Denies dyspnea, Denies dyspnea on exertion, Denies orthopnea and Denies paroxysmal nocturnal dyspnea Resp Denies chest congestion, Denies excessive phlegm production, Denies pain on inspiration, Denies pain with cough, Denies dyspnea, Denies dyspnea on exertion, Denies stridor and Denies wheezing Musc Denies myalgias Neuro Reports Normal hearing present and Denies headache(s) Endo Denies excessive sweating Richard/Lymph Denies lymphadenopathy Aller/Immun Denies itchy eyes, Denies seasonal rhinorrhea and Denies wheezing Physical Exam Vital Signs: Last Vital Signs Pulse 78 02/23/25 10:23 BP 136/68 02/23/25 10:23 Pulse Ox 100 02/23/25 10:23 Oxygen Delivery Method Room Air 02/23/25 10:23 BMI result Body Mass Index 25.8 Const General: cooperative, healthy appearing, comfortable, no acute distress, well developed and alert Orientation/consciousness: patient oriented x3 Limitations: no limitations HEENT Head: Yes normal to inspection, Yes normocephalic and Yes atraumatic Ears: hearing grossly normal bilaterally and external ears normal Eyes General: appearance normal, both eyes and all related structures Eyelids: Yes eyelids normal Sclerae: sclerae normal EOM: EOMs intact bilaterally Neck Neck: Yes normal visual inspection and Yes no lymphadenopathy Lymphatic: no lymphadenopathy noted Chest Chest palpation & inspection: normal inspection of the chest Resp Effort & Inspection: normal respiratory effort, able to speak in complete sentences, no audible wheezes, no cough, no stridor, not tachypneic, no tripod positioning and no use of accessory muscles Auscultation: clear to auscultation bilaterally Cardio Jugular venous distension: no JVD Rate: regular rate Rhythm: regular rhythm Skin Other: warm, dry General skin exam: no rashes or lesions noted Neuro General: patient oriented x3 Cranial nerves: Yes Normal hearing present Cognition (Neuro): normal cognition Gait exam (Neuro): Normal gait present Extrem General: Yes normal to inspection, Yes capillary refill normal, Yes no clubbing, cyanosis or edema and Yes no pedal edema Psych Appearance: grossly normal and well kempt Speech and movement: Normal speech and movement present and Clear speech present Affect: normal affect Attitude: cooperative Thought process: Normal thought process present Thought content: Normal thought content present Insight: Good insight present (Psych) Judgement: Good judgement present (Psych) Assessment & Plan Assessment & Plan (1) Chronic cough: Code(s): R05.3 - Chronic cough Category: Medical (2) Environmental allergies: Code(s): Z91.09 - Other allergy status, other than to drugs and biological substances Category: Medical Plan Tobias presents for pulmonary evaluation for chronic cough. He denies symptoms suggestive of infectious process. There may be a possible component of postnasal drip or allergies contributing to symptoms. Will send for PFT to assess for obstructive component. Will send for chest x-ray to assess for any underlying parenchymal condition contributing to cough as well as RAST to assess for an allergic component. All questions were answered and patient is in agreement of plan. Will follow-up to review results or sooner if needed. Orders: Orders Complete Blood Count Auto Diff 02/23/25 Z91.09 - Other allergy status, other than to drugs and biological substances Resp Allergy Profile Region I 02/23/25 Z91.09 - Other allergy status, other than to drugs and biological substances XR chest 2V Today R05.3 - Chronic cough Immunoglobulin E 02/23/25 Z91.09 - Other allergy status, other than to drugs and biological substances PFT pulmonary function test Today R05.3 - Chronic cough Coding Level of Care Code New Pt Level 4 (72305) Diagnoses Chronic cough R05.3 Environmental allergies Z91.09
[2025-02-23 10:23] VITALS: BP 136/68; PULSE 78; O2SAT 100; BMI 25.8
--- OUTSIDE RECORDS SUMMARY | 2025-02-23 11:59 | XMS_ITS | Data Portability ---
Author Organization [place] - [facility], Allergy Address [address] [place] [phone] Care Team Providers Care Backfiller Name Role Phone GURPREETAVEL Primary Care Provider [phone] Assessment Encounter Date Assessment Date Assessment LastModified [...] Sensorine ural hearing loss of bilateral ears [id number] Active 2020 Sensorine ural hearing loss, bilateral ; Note: Date Diagnosed : 1 11:06 AM (H90.3) Not Available [facility] 4 03:08:02 Gastroeso phageal reflux disease without esophagit is 376239463 Active 2020 Gastro-es ophageal reflux disease without esophagit is; Note: Date Diagnosed : 07/31/2021 11:33 AM (K21.9) Not Available [facility] 4 03:08:01 Impacted cerumen of bilateral ears 50394601824 67948 Active 2020 Impacted cerumen, bilateral ; Note: Date Diagnosed : 1 1:17 PM (H61.23) Not Available [facility] 4 03:08:02 Acute pansinusi tis 3654705 Active 2021 Acute pansinusi tis, unspecifi ed; Note: Date Diagnosed : 2 9:52 AM (J01.40) Not Available [facility] 4 03:08:00 Chronic hoarsenes s 15285909629 05 Active 2024 MARIE MONTAÑO MD [address] [place] [address], [phone] , [place] - [facility] 5 09:07:07 Problem Notes None recorded. Procedures Surgical History Date Name Laterality Status Provider Name and Address Organization Details Recorded Time 01/06/2025 FOL_DP completed MARIE MONTAÑO MD [address] [place] [address], [phone], [place] - [facility] 01/05/2025 17:15:58 12/09/2024 FOL_DP cancelled MARIE MONTAÑO MD [address] [place] [address], [phone], [place] [facility] 12/08/2024 13:21:24 Imaging Results Imaging Date Name Status LastModified by [facility] Details LastModified Time 02/27/2024 imaging/diagno stic result [...] flecainide 50 mg tablet active Medication ID: [id number] Bran d Name: flecainide Send Method: E-Prescribe d Subs Allowed: subs OK Medicati onGenericNa me: flecainide Not Available Not Available Not Available metoprolol succinate ER 25 mg tablet,exten ded release 24 hr active Medication ID: [id number] Reuben d Name: metoprolol succinate S end Method: E-Prescribe d Subs Allowed: subs OK Special Instruction : TAKE 1 TABLET BY MOUTH EVERY DAY Medicat ionGenericN jeny: metoprolol succinate Not Available Not Available Not Available Xarelto 20 mg tablet active Medication ID: [id number] Bran d Name: Xarelto Sen d Method: E-Prescribe d Subs Allowed: subs OK Special Instruction : TAKE 1 TABLET BY MOUTH EVERY DAY Medicat ionGenericN jeny: Xarelto Not Available Not Available Not Available Vitals Date Recorded Body height Body mass index (BMI) Body weight Provider Name and Address Organization Details Last Updated DateTime 01/06/2025 172.72 cm 23.9 kg/m2 41111 g Nicholas Snow [place] - [facility] 01/06/2025 08:52:10 Social History None recorded. Functional Status None recorded. Mental Status None recorded. Family History Nothing Reported. Medical History No medical history recorded. Past Encounters Encounter ID Performer Location Encounter Start Date Encounter Closed Date Diagnosis/Indication Diagnosis SNOMED-CT Code Diagnosis ICD10 Code Diagnosis Note [id number] [facility] [place] [address] [place] [phone] 04/23/2024 15:51:14 05/24/2024 14:56:31 Sensorineural hearing loss of bilateral ears [id number] H90.3 [id number] MARIE MONTAÑO MD [facility] [address] [address] 01/06/2025 08:36:52 01/06/2025 09:08:50 Chronic hoarseness 8656961476 105 R49.0 Health Concerns Section Related Observation LastModified by Organization Detai ls LastModified Time None Recorded Concern Status LastModified by Organization Details LastModified Time None Recorded Advance Directives Directive None Recorded Payers Encounter Date Sequence Insurance Name Policy Number Policy Moncada Covered Member ID Moncada Member ID Guarantor Name 04/23/2024 1 [place]ICARE B-[place] [employer] Tobias Morejon [id number] Tobias Nair Jean-Pierre 04/23/2024 2 FORMERLY [facility] PLANS [facility] DIRECT - [place] (HMO) [id number] Tobias Torrest [id number] Tobias Nair Jean-Pierre 01/06/2025 1 MEDICARE B-[place]: [employer] Tobias Morejon [id number] Tobias Nair Jean-Pierre 01/06/2025 2 [facility] (MEDICARE SUPPLEMENT) Tobias Nair Jean-Pierre [id number] Tobias Nair Jean-Pierre Notes Date Note Type Note Provider Name and Address Organization Details Recorded Time 04/23/2024 text/html Been doing well so far since the new repair. MAC [facility]EVENS [address], [address], [facility] - [facility] 04/23/2024 16:16:54 01/06/2025 text/html hoarseno relief with sips of waterimproves with practice singing loudly PV 02/27/24 sinai Herman. Hearing aids with Hali MONTAÑO MD [address] [place] [address], [phone], [facility] - [facility] 01/06/2025 09:08:51
--- OUTSIDE RECORDS SUMMARY | 2025-02-23 11:59 | XMS_ITS | Patient Health Record ---
Author Organization [facility] Address [address] Care Team Providers Care Plant Attendant Or Assistant Operator Name Role Phone Tasha Nelson Primary Care Provider Gregorio Bishop Unavailable [phone] Allergies Allergen (clinical drug ingredient) Drug/Non Drug [...] Risk Notes Problem Pain in left foot (9752181433727 07) Pain in left foot (M79.672) Active confirmed Problem Acquired hammer toe of right foot (9231406754930 105) Other hammer toe(s) (acquired), right foot [...] Medicare National [employer] [address] [place] [address] [id number] Tobias Morejon Self - patient is the insured [facility] [address] [place] [address] [id number] Tobias Morejon Self - patient is the insured Medical (General) History Medical History History ICD Code right knee left hip Arthritis Back,Hip,and Knee pain Broken bones Heart disease Hepatitis Numbness Measles Mumps Chicken pox Joint implants/screws Surgical History Surgery Date(Month/Year) right knee 2013 left hip 2010 carpal tunnel 2016 kidney stones 10/2021 endoscopy 11/2021
== END 2025-02-23 11:10 | disposition home or self-care (01) ==
LOC: HO.HPSW 10:17
PROVIDERS: PCP Internal Medicine; Referring Provider Internal Medicine; Visit Provider Nurse Practitioner Family
DX: R05.3 Chronic cough (principal); Z91.09 Other allergy status, other than to drugs and biological substances
CPT/HCPCS: 99204

== ENCOUNTER → 2025-02-23 10:16 | Outpatient (BNVA) | payer MEDICARE, OTHER, SELFPAY | PROVIDERS: PCP Internal Medicine; Referring Provider Internal Medicine; Visit Provider Nurse Practitioner Family | DX: Z13.89 Encounter for screening for other disorder (principal) | CPT/HCPCS: 99202 ==

== ENCOUNTER 2025-02-23 11:14 | Outpatient (REF) | payer MEDICARE, OTHER, SELFPAY ==
[2025-02-23 14:11] LABS: MANUAL DIFF FLAG NO
[2025-02-23 14:34] LABS: Basophils Percent Auto 0.6 % (0-2); Eosinophils Absolute Auto 0.1 X10*3/uL (0.0-0.4); Eosinophils Percent Auto 2.2 % (0-4); Hematocrit 39.8 % (42.0-52.0); Hemoglobin 13.6 g/dl (14.0-18.0); Imm Gran Abs Auto 0.01 X10*3/uL (0.00-0.03); Imm Gran Pct Auto 0.2 % (0.0-0.4); Lymphocytes Percent Auto 21.6 % (20-40); Mean Corpuscular HGB Conc 34.2 g/dl (31.0-36.0); Mean Corpuscular Hemoglobin 33.3 pg (27.0-33.0); Mean Corpuscular Volume 97.5 fL (80.0-98.0); Mean Platelet Volume 11.6 fL (9.4-12.4); Monocytes Absolute Auto 0.4 X10*3/uL (0.1-1.2); Monocytes Percent Auto 9.1 % (2-11); Neutrophils Absolute Auto 3.1 x10*3/uL (2.0-8.3); Neutrophils Percent Auto 66.3 % (45-73); Platelet Count 141 X10*3/uL (160-400); Red Blood Count 4.08 X10*6/uL (4.60-5.80); Red Cell Distribution Width 13.2 % (11.0-16.0); White Blood Count 4.6 X10*3/uL (4.8-10.8)
[2025-02-24 22:43] LABS: Immunoglobulin E 29 kU/L (<OR=114)
[2025-03-01 22:58] LABS: Class Alternaria alternata 0; Class Aspergillus fumigatus 0; Class Bermuda Grass 0; Class Birch 0; Class Cat Dander 0; Class Cladosporium herbarum 0; Class Cockroach 0; Class Common Ragweed 0; Class Cottonwood 0; Class Derm. pterony 0/1; Class Dermatophagoides farinae 0/1; Class Dog Dander 0; Class Elm 0; Class Maple Box Elder 0; Class Mountain Cedar 0; Class Mouse Urine Protein 0; Class Mugwort 0; Class Oak 0; Class Penicillium crysogenum 0; Class Rough Pigweed 0; Class Sheep Sorrel 0; Class Sycamore 0; Class Timothy Grass 0; Class Walnut Tree 0; Class White Ash 0; Class White Mulberry 0; D002 - IgE D farinae 0.16 kU/L; E001 - IgE Cat Dander <0.10 kU/L; E005 - IgE Dog Dander <0.10 kU/L; E072-IgE Mouse Urine <0.10 kU/L; G002 IgE Bermuda Grass <0.10 kU/L; G006 - IgE Timothy Grass <0.10 kU/L; I006-IgE Cockroach, German <0.10 kU/L; Immunoglobulin E 28 kU/L (<OR=114); M001 IgE Penicillium chrysogen <0.10 kU/L; M002 - IgE Cladosporium herbar <0.10 kU/L; M003 - IgE Aspergillus fumigat <0.10 kU/L; M006 - IgE Alternaria alternat <0.10 kU/L; T001 IgE Maple/Box Elder <0.10 kU/L; T003 IgE Common Silver Birch <0.10 kU/L; T006 - IgE Cedar, Mountain <0.10 kU/L; T007 - IgE Oak, White <0.10 kU/L; T008 IgE Elm, American <0.10 kU/L; T010 - IgE Walnut <0.10 kU/L; T011 - IgE Maple Leaf Sycamore <0.10 kU/L; T014 - IgE Cottonwood <0.10 kU/L; T015 - IgE Ash, White <0.10 kU/L; T070 - IgE White Mulberry <0.10 kU/L; W001 - IgE Ragweed, Short <0.10 kU/L; W006 - IgE Mugwort <0.10 kU/L; W014 IgE Pigweed, Common <0.10 kU/L; W018 IgE Sheep Sorrel <0.10 kU/L
== END 2025-02-23 11:15 | disposition home or self-care (01) ==
LOC: HO.WFDLDS 11:14
PROVIDERS: Visit Provider Nurse Practitioner Family
DX: Z91.09 Other allergy status, other than to drugs and biological substances (principal)
CPT/HCPCS: 36415; 82785; 85025; 86003; 99202

== ENCOUNTER 2025-03-11 12:16 | Outpatient (REF) | payer MEDICARE, OTHER, SELFPAY ==
--- NOTE | ~2025-03-11 | XR_ITS ---
EXAMINATION: XR CHEST CLINICAL INFORMATION: R05.3 - Chronic cough COMPARISON: October 22, 2024. TECHNIQUE: 2 views of the chest were obtained. FINDINGS: No consolidation, pleural effusion or pneumothorax. Cardiomediastinal silhouette size is normal. Calcified plaque aortic arch. Altered level thoracic and upper lumbar spondylosis. Degenerative changes in the acromioclavicular joints, bilaterally. XR/XR chest 2V IMPRESSION: No acute airspace disease. Spondylosis, thoracolumbar spine. Degenerative changes, acromioclavicular joints. Electronically signed by: Junior Crawford MD 03/11/2025 12:46 PM EDT
--- NOTE | ~2025-03-11 | US_ITS ---
EXAMINATION: US KIDNEY BILATERAL HISTORY: N20.0 - Calculus of kidney TECHNIQUE: Real-time grayscale ultrasound imaging of the kidneys was performed and images were reviewed. COMPARISON: Comparison is made with the prior examination dated 02/23/2024. FINDINGS: Right kidney: The right kidney measures 11.0 x 5.6 x 4.9 cm. Renal parenchymal echotexture and thickness are normal. There are no masses. There is no hydronephrosis or renal calculi. There is a probable calcified vessel at the lower pole. Left Kidney: The left kidney measures 10.8 x 5.3 x 4.1 cm. Renal parenchymal echotexture and thickness are normal. There are no masses. There is a 7 x 9 x 4 mm calculus at the lower pole. There is an extrarenal pelvis. There is no hydronephrosis. US/US renal BI IMPRESSION: 7 x 9 x 4 mm nonobstructing calculus at the lower pole of the left kidney. No hydronephrosis. Electronically signed by: Vipul Ramirez MD 03/11/2025 01:22 PM EDT
--- OUTSIDE RECORDS SUMMARY | 2025-03-11 12:31 | XMS_ITS | Patient Health Record ---
Author Organization [facility] Address [address] [facility] [place] [address] Care Team Providers Care Hearing Screen Coordinator Name Role Phone Tasha Nelson Primary Care Provider Gregorio Bishop Unavailable [phone] Allergies Allergen (clinical drug ingredient) Drug/Non Drug [...] Risk Notes Problem Pain in left foot (7332347317480 07) Pain in left foot (M79.672) Active confirmed Problem Acquired hammer toe of right foot (4719363462471 105) Other hammer toe(s) (acquired), right foot [...] Medicare National [employer]t [employer] [address] [facility] [place] [address] [id number] Tobias Morejon Self - patient is the insured [facility] [address] [place] [address] [id number] Tobias Morejon Self - patient is the insured Medical (General) History Medical History History ICD Code right knee left hip Arthritis Back,Hip,and Knee pain Broken bones Heart disease Hepatitis Numbness Measles Mumps Chicken pox Joint implants/screws Surgical History Surgery Date(Month/Year) right knee 2013 left hip 2010 carpal tunnel 2016 kidney stones 10/2021 endoscopy 11/2021
--- OUTSIDE RECORDS SUMMARY | 2025-03-11 12:31 | XMS_ITS | Data Portability ---
Author Organization [place] - [facility], Allergy Address [address] [place] [phone] Care Team Providers Care Benefit Specialist Name Role Phone GURPREETAVEL Primary Care Provider [...] Sensorine ural hearing loss of bilateral ears 313276900 Active 2020 Sensorine ural hearing loss, bilateral ; Note: Date Diagnosed : 1 11:06 AM (H90.3) Not Available [facility] 4 03:08:02 Gastroeso phageal reflux disease without esophagit is 917756138 Active 2020 Gastro-es ophageal reflux disease without esophagit is; Note: Date Diagnosed : 07/31/2021 11:33 AM (K21.9) Not Available [facility] 4 03:08:01 Impacted cerumen of bilateral ears 73476397701 25578 Active 2020 Impacted cerumen, bilateral ; Note: Date Diagnosed : 1 1:17 PM (H61.23) Not Available [facility] 4 03:08:02 Acute pansinusi tis 9747238 Active 2021 Acute pansinusi tis, unspecifi ed; Note: Date Diagnosed : 2 9:52 AM (J01.40) Not Available [facility] 4 03:08:00 Chronic hoarsenes s 21283889200 05 Active 2024 MARIE MONTAÑO MD [address] [place] [address], [phone] , [place] - [facility] 5 09:07:07 Problem Notes None recorded. Procedures Surgical History Date Name Laterality Status Provider Name and Address Organization Details Recorded Time 01/06/2025 FOL_DP completed MARIE MONTAÑO MD [address] [place] [address], [phone], [place] [facility] 01/05/2025 17:15:58 12/09/2024 FOL_DP cancelled MARIE MONTAÑO MD [address] [place] [address], [phone], [place] [facility] 12/08/2024 13:21:24 Imaging Results Imaging Date Name Status LastModified by [facility] Details LastModified Time 02/27/2024 imaging/diagno stic result [...] flecainide 50 mg tablet active Medication ID: [id number] Bran d Name: flecainide Send Method: E-Prescribe d Subs Allowed: subs OK Medicati onGenericNa me: flecainide Not Available Not Available Not Available metoprolol succinate ER 25 mg tablet,exten ded release 24 hr active Medication ID: [id number] Reuben d Name: metoprolol succinate S end Method: E-Prescribe d Subs Allowed: subs OK Special Instruction : TAKE 1 TABLET BY MOUTH EVERY DAY Medicat ionGenericN jeny: metoprolol succinate Not Available Not Available Not Available Xarelto 20 mg tablet active Medication ID: [id number] Bran d Name: Xarelto Sen d Method: E-Prescribe d Subs Allowed: subs OK Special Instruction : TAKE 1 TABLET BY MOUTH EVERY DAY Medicat ionGenericN jeny: Xarelto Not Available Not Available Not Available Vitals Date Recorded Body height Body mass index (BMI) Body weight Provider Name and Address Organization Details Last Updated DateTime 01/06/2025 172.72 cm 23.9 kg/m2 59547 g Nicholas Snow [place] - [facility] 01/06/2025 08:52:10 Social History None recorded. Functional Status None recorded. Mental Status None recorded. Family History Nothing Reported. Medical History No medical history recorded. Past Encounters Encounter ID Performer Location Encounter Start Date Encounter Closed Date Diagnosis/Indication Diagnosis SNOMED-CT Code Diagnosis ICD10 Code Diagnosis Note [id number] [facility] [place] [address] [place] [address] 04/23/2024 15:51:14 05/24/2024 14:56:31 Sensorineural hearing loss of bilateral ears 804927828 H90.3 [id number] MARIE MONTAÑO MD [facility] [address] [address] 01/06/2025 08:36:52 01/06/2025 09:08:50 Chronic hoarseness 7817956434 105 R49.0 Health Concerns Section Related Observation LastModified by Organization Detai ls LastModified Time None Recorded Concern Status LastModified by Organization Details LastModified Time None Recorded Advance Directives Directive None Recorded Payers Insurance Date Sequence Insurance Name Policy Number Policy Moncada Covered Member ID Moncada Member ID Guarantor Name 01/06/2025 1 [place]ICARE B-[place] [employer] Tobias Morejon [id number] Tobias Nair Jean-Pierre 01/06/2025 2 [facility] PLANS [facility] - DIRECT - [place] (HMO) [id number] Tobias Torrest [id number] Tobias Nair Jean-Pierre 01/06/2025 2 [facility] (MEDICARE SUPPLEMENT) Tobias Morejon [id number] Tobias Nair Jean-Pierre Notes Date Note Type Note Provider Name and Address Organization Details Recorded Time 04/23/2024 text/html Been doing well so far since the new repair. MAC STEVENS [address], [address], [place] - [facility] 04/23/2024 16:16:54 01/06/2025 text/html hoarseno relief with sips of waterimproves with practice singing loudly PV 02/27/24 sinai Herman. Hearing aids with Hali MONTAÑO MD [address] [facility] [address], [place], [address], [place] [facility] 01/06/2025 09:08:51
== END 2025-03-11 12:17 | disposition home or self-care (01) ==
LOC: HO.US 12:16
PROVIDERS: PCP Internal Medicine; Visit Provider Urology
DX: N20.0 Calculus of kidney (principal); R05.3 Chronic cough
CPT/HCPCS: 71046; 76775

== ENCOUNTER → 2025-03-11 12:21 | Outpatient (BNV) | payer MEDICARE, OTHER, SELFPAY | PROVIDERS: PCP Internal Medicine; Visit Provider Radiology Diagnostic Radiology | DX: N20.0 Calculus of kidney (principal); R05.3 Chronic cough | CPT/HCPCS: 76775 ==

== ENCOUNTER 2025-03-17 13:49 | Outpatient (AMB) | payer MEDICARE, OTHER, SELFPAY ==
--- NOTE | 2025-03-17 14:03 | MHC.OFFVIS ---
Intake Visit Reasons: 1YR US Intake Note: Pt presents to the office today for a 1 year follow up/US. PVR:8ml Allergies prochlorperazine [From COMPAZINE] Allergy (Severe, Verified 03/17/25 14:04) N/V SEIZURES, 1950's HPI Comments Details: Tobias is a pleasant male. He is a patient of Dr. Nelson. He is seen for the following urologic conditions - nephrolithiasis Yearly follow-up for ongoing management of recurrent nephrolithiasis Ultrasound 4 mm small stone left side Encourage fluid intake Remain on B6 Surveillance imaging Pelvic floor information provided - texted to patient Nephrolithiasis calcium oxalate ER visit late September 2021 Triggered by discoloration to urine Family history positive with father and brother forming stones Imaging 09/23 distal left ureteric stone with hydroureteronephrosis, left upper pole stone 7 mm - 01/22 ultrasound no evidence of stones - 08/24 ultrasound, question of small 3 mm stone on left side - 02/23 ultrasound 3 mm stone left side - 02/24 ultrasound no stones seen - 02/25 renal ultrasound small stone left Intervention - 09/23 ureteroscopy with laser lithotripsy left side - 12/25 left ESWL Stone analysis 09/23 calcium oxalate dihydrate Therapeutic plan encourage fluid intake - surveillance imaging - vitamin B6 [facility] Medical History Screening for prostate cancer COVID-19 virus infection Medicare annual wellness visit, initial Thrombocytopenia Vitamin D deficiency Seizures Hepatitis History of torn meniscus of right knee Hypercholesterolemia Impaired glucose tolerance Paroxysmal atrial fibrillation SVT (supraventricular tachycardia) Surgical History History of tooth extraction Hx of colonoscopy Carpal tunnel syndrome S/P arthroscopic surgery of right knee History of left hip replacement Family History Father Medical history unknown Mother Medical history unknown Social History Housing: House Are you a primary reproductive healthcare assistant to a significant other at home: No Do you presently have visiting nurse or other home services: No Alcohol intake: current Alcohol intake frequency: a few times a week Alcohol type: wine Patient Tobacco Use Status: Never used Tobacco e-Cigarette/Vaping Use: Never Used Second Hand Smoke Exposure: No service: No Current occupational status: retired Cognitive needs: No Hearing needs: Yes Vision needs: Yes Office Procedures Post Void Residual Post Residual Void Post Void Residual (PVR): 8 [id number] Void Residual by ultrasound Results AMB Urinalysis, Automated UA Leukoctes 0 Talon/uL Last Edit by Maine Campbell CMA on 03/17/25 14:12 UA Nitrite Negative Last Edit by Maine Campbell CMA on 03/17/25 14:12 UA Urobilinogen 0.2 mg/dL Last Edit by Maine Campbell CMA on 03/17/25 14:12 UA Protein 0 mg/dL Last Edit by Maine Campbell CMA on 03/17/25 14:12 UA pH 5.5 Last Edit by Maine Campbell CMA on 03/17/25 14:12 UA Blood 0 Fer/uL Last Edit by Maine Campbell CMA on 03/17/25 14:12 UA Specific [place] 1.015 Last Edit by Maine Campbell CMA on 03/17/25 14:12 UA Ketone Negative Last Edit by Maine Campbell CMA on 03/17/25 14:12 UA Bilirubin 0 mg/dL Last Edit by Maine Campbell CMA on 03/17/25 14:12 UA Glucose 0 mg/dL Last Edit by Maine Campbell CMA on 03/17/25 14:12 Assessment & Plan Assessment & Plan (1) BPH (benign prostatic hyperplasia): Code(s): N40.0 - Benign prostatic hyperplasia without lower urinary tract symptoms Category: Medical (2) Nephrolithiasis: Comment: October 2021 combined calcium oxalate stone ESWL January [address]22 Dr. Murcia Code(s): N20.0 - Calculus of kidney Category: Medical Orders: Orders AMB Urinalysis Automated Today R31.9 - Hematuria, unspecified AMB Post Void Residual by ultrasound Today N40.0 - Benign prostatic hyperplasia without lower urinary tract symptoms Medications: New tamsulosin (Flomax) 0.4 mg PO BEDTIME 30 days 30 tabs 2RF N40.0 - Benign prostatic hyperplasia without lower urinary tract symptoms Coding Diagnoses BPH (benign prostatic hyperplasia) N40.0 Nephrolithiasis N20.0 CPT Codes Post Residual Void - PVR CPT Code: 61376-[id number] Void Residual by ultrasound ([id number])
--- OUTSIDE RECORDS SUMMARY | 2025-03-17 14:29 | XMS_ITS | Patient Health Record ---
Author Organization [facility] Address [address] [facility] [address] Care Team Providers Care Embedded Systems Developer Name Role Phone Tasha Nelson Primary Care Provider Gregorio Bishop Unavailable [phone] Allergies Allergen (clinical drug ingredient) Drug/Non Drug [...] Risk Notes Problem Pain in left foot (0218159828478 07) Pain in left foot (M79.672) Active confirmed Problem Acquired hammer toe of right foot (7550222493903 105) Other hammer toe(s) (acquired), right foot [...] Medicare National [employer] [address] [facility] [address] [id number] Tobias Morejon Self - patient is the insured [facility] [address] [place] [address] [id number] Tobias Morejon Self - patient is the insured Medical (General) History Medical History History ICD Code right knee left hip Arthritis Back,Hip,and Knee pain Broken bones Heart disease Hepatitis Numbness Measles Mumps Chicken pox Joint implants/screws Surgical History Surgery Date(Month/Year) right knee 2013 left hip 2010 carpal tunnel 2016 kidney stones 10/2021 endoscopy 11/2021
--- OUTSIDE RECORDS SUMMARY | 2025-03-17 14:30 | XMS_ITS | Data Portability ---
Author Organization [place] [facility], Allergy Address [address] [place] [phone] Care Team Providers Care Scallop Shucker Name Role Phone GURPREETAVEL Primary Care Provider [phone] Assessment Encounter Date Assessment Date Assessment LastModified [...] Sensorine ural hearing loss of bilateral ears [id number] Active 2020 Sensorine ural hearing loss, bilateral ; Note: Date Diagnosed : 1 11:06 AM (H90.3) Not Available [facility] 4 03:08:02 Gastroeso phageal reflux disease without esophagit is 361278883 Active 2020 Gastro-es ophageal reflux disease without esophagit is; Note: Date Diagnosed : 07/31/2021 11:33 AM (K21.9) Not Available [facility] 4 03:08:01 Impacted cerumen of bilateral ears 74729357401 22633 Active 2020 Impacted cerumen, bilateral ; Note: Date Diagnosed : 1 1:17 PM (H61.23) Not Available [facility] 4 03:08:02 Acute pansinusi tis 5729166 Active 2021 Acute pansinusi tis, unspecifi ed; Note: Date Diagnosed : 2 9:52 AM (J01.40) Not Available [facility] 4 03:08:00 Chronic hoarsenes s 31121575330 05 Active 2024 MARIE MONTAÑO MD [address] [place] [address], [phone] , [place] - [facility] 5 09:07:07 Problem Notes None recorded. Procedures Surgical History Date Name Laterality Status Provider Name and Address Organization Details Recorded Time 01/06/2025 FOL_DP completed MARIE MONTAÑO MD [address] [place] [address], [phone], [place] - [facility] 01/05/2025 17:15:58 12/09/2024 FOL_DP cancelled MARIE MONTAÑO MD [address] [place] [address], [phone], [place] - [facility] 12/08/2024 13:21:24 Imaging Results Imaging Date Name Status LastModified by [facility] Details LastModified Time 02/27/2024 imaging/diagno stic result [...] flecainide 50 mg tablet active Medication ID: [id number] Bran d Name: flecainide Send Method: E-Prescribe d Subs Allowed: subs OK Medicati onGenericNa me: flecainide Not Available Not Available Not Available metoprolol succinate ER 25 mg tablet,exten ded release 24 hr active Medication ID: [id number] Reuben d Name: metoprolol succinate S end Method: E-Prescribe d Subs Allowed: subs OK Special Instruction : TAKE 1 TABLET BY MOUTH EVERY DAY Medicat ionGenericN jeny: metoprolol succinate Not Available Not Available Not Available Xarelto 20 mg tablet active Medication ID: [id number] Bran d Name: Xarelto Sen d Method: E-Prescribe d Subs Allowed: subs OK Special Instruction : TAKE 1 TABLET BY MOUTH EVERY DAY Medicat ionGenericN jeny: Xarelto Not Available Not Available Not Available Vitals Date Recorded Body height Body mass index (BMI) Body weight Provider Name and Address Organization Details Last Updated DateTime 01/06/2025 172.72 cm 23.9 kg/m2 12244 g Nicholas Snow [place] [facility] 01/06/2025 08:52:10 Social History None recorded. Functional Status None recorded. Mental Status None recorded. Family History Nothing Reported. Medical History No medical history recorded. Past Encounters Encounter ID Performer Location Encounter Start Date Encounter Closed Date Diagnosis/Indication Diagnosis SNOMED-CT Code Diagnosis ICD10 Code Diagnosis Note [id number] [facility] [place] [address] [place] [phone] 04/23/2024 15:51:14 05/24/2024 14:56:31 Sensorineural hearing loss of bilateral ears 371087248 H90.3 [id number] MARIE MONTAÑO MD [facility] [address] [phone] 01/06/2025 08:36:52 01/06/2025 09:08:50 Chronic hoarseness 0878921471 105 R49.0 Health Concerns Section Related Observation LastModified by Organization Detai ls LastModified Time None Recorded Concern Status LastModified by Organization Details LastModified Time None Recorded Advance Directives Directive None Recorded Payers Insurance Date Sequence Insurance Name Policy Number Policy Moncada Covered Member ID Moncada Member ID Guarantor Name 01/06/2025 1 [place] [employer] Tobias Morejon [id number] Tobias Nair Jean-Pierre 01/06/2025 [address] [facility] - [place] (HMO) [id number] Tobias Torrest [id number] Tobias Nair Jean-Pierre 01/06/2025 2 [facility] (MEDICARE SUPPLEMENT) Tobias Morejon [id number] Tobias Nair Jean-Pierre Notes Date Note Type Note Provider Name and Address Organization Details Recorded Time 04/23/2024 text/html Been doing well so far since the new repair. [facility] [address], [address], [place] - [facility] 04/23/2024 16:16:54 01/06/2025 text/html hoarseno relief with sips of waterimproves with practice singing loudly PV 02/27/24 sinai Herman. Hearing aids with Hali MONTAÑO MD [address] [facility],[place] [address], [place], [phone], [place] [facility] 01/06/2025 09:08:51
== END 2025-03-17 14:33 | disposition home or self-care (01) ==
LOC: HO.HUSH 13:50
PROVIDERS: PCP Internal Medicine; Visit Provider Urology
DX: R31.9 Hematuria, unspecified (principal)

== ENCOUNTER → 2025-03-17 13:49 | Outpatient (BNVA) | payer MEDICARE, OTHER, SELFPAY | PROVIDERS: PCP Internal Medicine; Visit Provider Urology | DX: N40.0 Benign prostatic hyperplasia without lower urinary tract symptoms (principal); R31.9 Hematuria, unspecified; N20.0 Calculus of kidney | CPT/HCPCS: 51798; 81003 ==

== ENCOUNTER 2025-04-05 07:48 | Outpatient (REF) | payer MEDICARE, OTHER, SELFPAY ==
--- OUTSIDE RECORDS SUMMARY | 2025-04-05 07:50 | XMS_ITS | Patient Health Record ---
Author Organization [facility] Address [address] [facility] [place] [address] Care Team Providers Care Filtering Machine Tender Name Role Phone Tasha Nelson Primary Care Provider Gregorio Bishop Unavailable [phone] Allergies Allergen (clinical drug ingredient) Drug/Non Drug [...] Risk Notes Problem Pain in left foot (9979341667872 07) Pain in left foot (M79.672) Active confirmed Problem Acquired hammer toe of right foot (9720584883545 105) Other hammer toe(s) (acquired), right foot [...] Medicare National [employer] [address] [place] [address] [id number] Tobias Morejon Self - patient is the insured [facility] [address] [place] [address] [id number] Tobias Morejon Self - patient is the insured Medical (General) History Medical History History ICD Code right knee left hip Arthritis Back,Hip,and Knee pain Broken bones Heart disease Hepatitis Numbness Measles Mumps Chicken pox Joint implants/screws Surgical History Surgery Date(Month/Year) right knee 2013 left hip 2010 carpal tunnel 2016 kidney stones 10/2021 endoscopy 11/2021
--- NOTE | 2025-04-05 08:04 | PFT_ITS ---
Flows: FEV1: 113 % of predicted at 3.16 L FVC: 104 % of predicted at 3.89 L FEV1/FVC: 81 % Bronchodilator response: Present in small to medium airways only Volumes: Total lung capacity: 93 % of predicted at 6.14 L Residual volume: 84 % of predicted at 2.12 L Slow vital capacity: 102 % of predicted at 4.02 L Expiratory reserve volume: 105 % of predicted at 1.17 L Diffusion capacity: Normal Impression: No obstructive or restrictive ventilatory defect. Bronchodilator response is present in small to medium airways only. MTDD
[2025-04-05 08:52] VITALS: PULSE 48; O2SAT 100
== END 2025-04-05 07:49 | disposition home or self-care (01) ==
LOC: HO.RESP 07:48
PROVIDERS: PCP Internal Medicine; Visit Provider Nurse Practitioner Family
DX: R05.3 Chronic cough (principal)
CPT/HCPCS: 94010; 94640; 94727; 94729

== ENCOUNTER → 2025-04-05 08:04 | Outpatient (BNV) | payer MEDICARE, OTHER, SELFPAY | PROVIDERS: PCP Internal Medicine; Visit Provider Internal Medicine Pulmonary Disease | DX: R05.3 Chronic cough (principal) | CPT/HCPCS: 94060; 94727; 94729 ==

== ENCOUNTER 2025-04-22 10:59 | Outpatient (AMB) | payer MEDICARE, OTHER, SELFPAY ==
--- NOTE | 2025-04-22 11:10 | A.OFFPC_ITS ---
Vital Signs 04/22/25 11:11 04/22/25 12:05 Height 5 ft 8 in Weight 168 lb 4 oz BMI 25.6 BP 160/70 H 118/64 Blood Pressure Location Lt brachial Lt brachial Position Sitting Sitting Pulse 99 Pulse Source Pulse Oximeter Temp 97.3 F Temp Source Temporal Artery Scan Pulse Oximetry (%) 98 Oxygen Delivery Method Room Air Intake Visit Reasons: 3 month follow up Intake Note: Patient is here to follow up on CAD, BPH, PAfib. Aging Room Hand Required: No Medical Office Coordinator: Not Required per policy Accompanied by: Self / Same As Patient Allergies prochlorperazine (From COMPAZINE) Allergy (Severe, Verified 04/22/25 11:37) N/V SEIZURES, Medication List - Last Reconciled 04/22/25 by Naa Bonilla PA-C atorvastatin 20 mg PO DAILY cholecalciferol (vitamin D3) 25 mcg PO DAILY cyanocobalamin (vitamin B-12) 1,000 mcg PO 2XW dronedarone (Multaq) 400 mg PO BID fluticasone propionate 50 mcg/actuation (Flonase Allergy Relief) 2 sprays intranasal DAILY PRN pyridoxine (vitamin B6) 50 mg PO DAILY 90 days rivaroxaban (Xarelto) 20 mg PO DAILY tamsulosin (Flomax) 0.4 mg PO BEDTIME 30 days Tobacco use date assessed: 04/22/25 Fall risk assessment: No Falls in past year Last assessed Fall Risk: 04/22/25 Dental Screening Dental Screen Date: 12/20/24 HPI 3 month follow up HPI Details 73-year-old male with atrial fibrillatio n on anticoagulation and flecainide, impaired glucose tolerance, hypercholesterolemia, BPH, and nephrolithiasis last seen 12/2024 coming in for follow up. In review of the note s, patient was seen by Urology 03/2025 started on tamsulosin for BPH.?Seen by pulmonology 02/2025 for chronic cough pulmonary function test was ordered as well as chest x-ray and blood work. Seen by Cardiology 02/2025 symptomatic atrial fibrillation continue on Multaq with EKGs every 3 months and continue on Xarelto. Presenting with benign prostatic hyperplasia. Reports increased urinary freque ncy at night, managed with tamsulosin, which has reduced nocturia. Family history includes a brother with similar prostate issues. Atrial fibrillation diagnosed post-treadmill test, managed with Multaq and Xarelto. Hyperlipidemia managed with atorvastatin due to high calcium score. Hypertension controlled with improved blood pressure readings. Intermittent right hip pain, with a history of left hip replacement. [facility] Medical History Screening for prostate cancer COVID-19 virus infection Medicare annual wellness visit, initial Thrombocytopenia Vitamin D deficiency Seizures Hepatitis History of torn meniscus of right knee Hypercholesterolemia Impaired glucose tolerance Paroxysmal atrial fibrillation SVT (supraventricular tachycardia) Surgical History History of tooth extraction Hx of colonoscopy Carpal tunnel syndrome S/P arthroscopic surgery of right knee History of left hip replacement Family History Father Medical history unknown Mother Medical history unknown Social History Housing: House Are you a primary care provider to a significant other at home: No Do you presently have visiting nurse or other home services: No Alcohol intake: current Alcohol intake frequency: a few times a week Alcohol type: wine Patient Tobacco Use Status: Never used Tobacco e-Cigarette/Vaping Use: Never Used Second Hand Smoke Exposure: No service: No Current occupational status: retired Cognitive needs: No Hearing needs: Yes Vision needs: Yes Questionnaire PHQ-9 Over the last 2 weeks, how often have you been bothered by any of the following problems? 1. Little interest or pleasure in doing things: nearly every day 2. Feeling down, depressed, or hopeless: not at all 3. Trouble falling or staying asleep, or sleeping too much: not at all 4. Feeling tired or having little energy: not at all 5. Poor appetite or overeating: not at all 6. Feeling bad about yourself - or that you are a failure or have let yourself or your family down: several days 7. Trouble concentrating on things, such as reading the newspaper or watching television: not at all 8. Moving or speaking so slowly that other people could have noticed. Or the opposite - being so fidgety or restless that you have been moving around a lot more than usual: several days 9. Thoughts that you would be better off or of hurting yourself in some way: not at all Total score: 5 Depression Screening Interpretation: Positive Depression Screening Done: Yes Source: Developed by Drs. Vipul Espinoza, Aidee Ji, Marcello Harrison and colleagues, with an educational chepe from [employer]. Thrive Questionnaire Date Thrive assessed: 12/20/24 I am a: Patient What is your living situation today?: I have a steady place to live Within the past 12 months, did the food you bought not last and you didn't have the money to get more?: Never true Within the past 12 months, did you worry whether your food would run out before you got money to buy more?: Never true Do you have trouble paying for medicines?: No Do you have trouble getting transportation to medical appointments?: No Do you have trouble paying your heating and electricity bill?: No Do you have trouble taking care of your child, family member or friend?: No Do you have trouble with day-to-day activities such as bathing, preparing meals, shopping, managing finances, etc.?: No Are you currently unemployed and looking for a job?: I choose not to answer this question Are you interested in more education?: No Please select the resources that you would like help with: None Currently or been in a relationship where the following occur: No concerns reported THRIVE Score: 0 AUDIT C Alcohol Use Questionnaire (AUDIT-C) 1. How often do you have a drink containing alcohol?: 2-3 times a week 2. How many drinks containing alcohol do you have on a typical day when you are drinking?: 1 or 2 3. How often do you have six or more drinks on one occasion?: Less than monthly Total Score: 4 RANDY-7 AMB Questionnaire RANDY-7 Date RANDY - 7 assessed: 12/20/24 Feeling nervous, anxious, or on edge: 0 = Not at all Not being able to stop or control worryin = Not at all Worrying too much about different things: 0 = Not at all Trouble relaxin = Not at all Being so restless that it is hard to sit still: 0 = Not at all Becoming easily annoyed or irritable: 0 = Not at all Feeling afraid as if something awful might happen: 0 = Not at all Total RANDY-7 score (0-4 normal; 5-9 mild; 10-14 moderate; 15-21 severe): 0 Source: Developed by Drs. Vipul Espinoza, Aidee Ji, Marcello Harrison and colleagues, with an educational chepe from [employer]. Review of Systems Const Denies body aches, Denies chills, Denies fever(s), Denies headache(s) and Denies poor appetite Eyes Reports no additional complaints ENT Denies dizziness and Denies headache(s) Card Denies chest pain, Denies syncope, Denies edema, Denies lightheadedness and Denies dyspnea Resp Denies cough and Denies dyspnea GI Denies abdominal pain, Denies constipation, Denies diarrhea, Denies nausea and Denies vomiting Reports no additional complaints Musc Reports no additional complaints and Denies abnormal gait Skin/Breast Reports system reviewed and no additional complaints, except as documented Neuro Denies abnormal gait, Denies dizziness, Denies syncope and Denies headache(s) Psych Reports no additional complaints Physical exam (Primary Care) Vital Signs: Last Vital Signs Temp 97.3 F 04/22/25 11:11 Pulse 99 04/22/25 11:11 BP 118/64 04/22/25 12:05 Pulse Ox 98 04/22/25 11:11 Oxygen Delivery Method Room Air 04/22/25 11:11 BMI result Body Mass Index 25.6 Tobacco/Smoking Status: Tobacco use Status Tobacco use date assessed 04/22/25 04/22/25 11:17 Patient Tobacco Use Status Never used Tobacco 04/22/25 11:17 e-Cigarette/Vaping Use Never Used 04/22/25 11:17 PHQ-9: PHQ-9 Score PHQ-9: Total score 5 04/22/25 11:36 Depression Screening Interpretation: Positive Thrive Assessment: Date of Thrive Assessment Date Thrive assessed 12/20/24 04/22/25 11:17 Currently or been in a relationship where the following occur: No concerns reported Const General: cooperative, healthy appearing, comfortable and no acute distress Orientation/consciousness: patient oriented x3 HENMT Head: Yes normocephalic Ears: hearing grossly normal bilaterally General nose exam: Normal external nose present Eyes General: appearance normal, both eyes and all related structures Conjunctivae: conjunctivae normal Neck Neck: Yes full ROM and Yes no lymphadenopathy Resp Effort & Inspection: normal respiratory effort Auscultation: clear to auscultation bilaterally, no crackles, no rales, no rhonchi and no wheezes Cardio Rate: regular rate Rhythm: abnormal rhythm Skin General skin exam: no rashes or lesions noted Neuro General: patient oriented x3 Gait exam (Neuro): Normal gait present Extrem General: Yes normal to inspection, Yes full ROM and No edema Psych Affect: normal affect Attitude: cooperative Insight: Good insight present (Psych) Judgement: Good judgement present (Psych) Coding Level of Care Code Est Pt Level 3 (56279) Diagnoses CAD (coronary artery disease) I25.10 Paroxysmal atrial fibrillation I48.0 Hypercholesterolemia E78.00 Impaired glucose tolerance R73.02 BPH (benign prostatic hyperplasia) N40.0 Chronic cough R05.3 Anemia D64.9 Right hip pain M25.551 Assessment & Plan Assessment & Plan (1) CAD (coronary artery disease): Comment: 06/2024 AGATSON SCoRE 597 0 Agatston units ? No identifiable disease ?1 to 99 Agatston units ? Mild disease ?100 to 399 Agatston units ? Moderate disease ?=400 Agatston units ? Severe disease Code(s): I25.10 - Atherosclerotic heart disease of [place] coronary artery without angina pectoris Category: Medical Plan: Patient having high calcium score was recently started on atorvastatin by his bank advisor. Continue to manage cholesterol, blood pressure and blood sugars. Aspirin deferred as patient is currently on Xarelto and high-risk for bleed. (2) Paroxysmal atrial fibrillation: Code(s): I48.0 - Paroxysmal atrial fibrillation Category: Medical Plan: Continue to follow with bank advisor's is on Multaq and Xarelto. (3) Hypercholesterolemia: Code(s): E78.00 - Pure hypercholesterolemia, unspecified Category: Medical Plan: Avoid foods that are high in cholesterol such as red meat, fried foods, eggs and baked goods. Triglyceride goal of less than 150 and LDL goal of less than 70. Continue on atorvastatin 80 (4) Impaired glucose tolerance: Code(s): R73.02 - Impaired glucose tolerance (oral) Category: Medical Plan: Decrease the amount of carbohydrates such as pasta, bread, rice, and potatoes and limit the amount of sweets. Although fruits are generally healthy they should be eaten in moderation as they are still high in sugar. (5) BPH (benign prostatic hyperplasia): Code(s): N40.0 - Benign prostatic hyperplasia without lower urinary tract symptoms Category: Medical Plan: Continue to follow with Urology and placed on Flomax. He has seen an improvement in his symptoms since starting on the Flomax. (6) Chronic cough: Code(s): R05.3 - Chronic cough Category: Medical Plan: Currently undergoing a workup with pulmonology at this time. (7) Anemia: Code(s): D64.9 - Anemia, unspecified Category: Medical Plan: Last blood work showing mild anemia plan to repeat CBC (8) Right hip pain: Code(s): M25.551 - Pain in right hip Category: Medical Plan: Patient not presently having right hip pain but does report occasional discomfort especially while driving. Plan to obtain x-ray for further evaluation Plan The patient will continue tamsulosin for benign prostatic hyperplasia and discuss further treatment options with Dr. Murcia if necessary. Multaq and Xarelto will be continued for atrial fibrillation management, with regular monitoring of heart rhythm. Atorvastatin will be maintained to manage hyperlipidemia and prevent further arterial calcification. Anemia will be reassessed with repeat blood work to evaluate hemoglobin and potential deficiencies. A hip x-ray is planned to investigate the cause of intermittent hip pain. This note was constructed using voice recognition software. While every effort has been made to ensure accuracy and home comfort advisor, still areas may have been included sometimes these areas may affect the content or meeting of the given symptoms. Total time spent caring for the patient today was 30 minutes. This includes time spent before the visit reviewing the chart, time spent during the visit, and time spent after the visit and documentation. Patient was informed and verbally consented to the use of an ambient scribe for clinic note documentation during this visit. Orders: Orders Vitamin B12 and Folate Today D64.9 - Anemia, unspecified, Z13.21 - Encounter for screening for nutritional disorder IRON PROFILE Today D64.9 - Anemia, unspecified XR hip RT min 2V Today M25.551 - Pain in right hip Complete Blood Count Auto Diff Today D64.9 - Anemia, unspecified, Z00.00 - Encounter for general adult medical examination without abnormal findings
[2025-04-22 11:11] VITALS: BP 160/70; PULSE 99; TEMP 36.3; O2SAT 98; BMI 25.6
--- OUTSIDE RECORDS SUMMARY | 2025-04-22 11:25 | XMS_ITS | Patient Health Record ---
Author Organization [facility] Address [address] [facility] [place] [address] Care Team Providers Care Loop Puller Name Role Phone Tasha Nelson Primary Care Provider Gregorio Bishop Unavailable [phone] Allergies Allergen (clinical drug ingredient) Drug/Non Drug [...] Risk Notes Problem Pain in left foot (4070849470036 07) Pain in left foot (M79.672) Active confirmed Problem Acquired hammer toe of right foot (7946900911778 105) Other hammer toe(s) (acquired), right foot [...] Medicare National [employer] [address] [place] [address] [id number] Tobias Morejon Self - patient is the insured [facility] [address] [place] [address] [id number] Tobias Morejon Self - patient is the insured Medical (General) History Medical History History ICD Code right knee left hip Arthritis Back,Hip,and Knee pain Broken bones Heart disease Hepatitis Numbness Measles Mumps Chicken pox Joint implants/screws Surgical History Surgery Date(Month/Year) right knee 2013 left hip 2010 carpal tunnel 2016 kidney stones 10/2021 endoscopy 11/2021
[2025-04-22 12:05] VITALS: BP 118/64
== END 2025-04-22 12:09 | disposition home or self-care (01) ==
LOC: HO.HMCH 11:00
PROVIDERS: PCP Internal Medicine
DX: I25.10 Atherosclerotic heart disease of native coronary artery without angina pectoris (principal); I48.0 Paroxysmal atrial fibrillation; E78.00 Pure hypercholesterolemia, unspecified; R73.02 Impaired glucose tolerance (oral); N40.0 Benign prostatic hyperplasia without lower urinary tract symptoms; R05.3 Chronic cough; D64.9 Anemia, unspecified; M25.551 Pain in right hip

== ENCOUNTER 2025-04-22 10:59 | Outpatient (REF) | payer MEDICARE, OTHER, SELFPAY ==
--- NOTE | ~2025-04-22 | XR_ITS ---
EXAMINATION: XR HIP, RIGHT CLINICAL INFORMATION: M25.551 - Pain in right hip COMPARISON: None available. TECHNIQUE: AP and oblique views of the right hip. FINDINGS: Subchondral cyst formation and sclerosis along the articular surface of the right acetabulum and femoral head with asymmetric joint space narrowing. No gross volume loss. No acute cortical disruption or alignment. No lytic or blastic lesions. Vascular calcifications. XR/XR hip RT min 2V IMPRESSION: Moderate osteoarthrosis, right hip. Electronically signed by: Junior Crawford MD 04/22/2025 12:52 PM EDT
[2025-04-22 12:32] LABS: MANUAL DIFF FLAG NO
[2025-04-22 13:21] LABS: Basophils Percent Auto 0.5 % (0-2); Eosinophils Absolute Auto 0.1 X10*3/uL (0.0-0.4); Hematocrit 40.6 % (42.0-52.0); Hemoglobin 13.8 g/dl (14.0-18.0); Imm Gran Abs Auto 0.02 X10*3/uL (0.00-0.03); Imm Gran Pct Auto 0.3 % (0.0-0.4); Lymphocytes Absolute Auto 1.2 X10*3/uL (1.2-4.9); Lymphocytes Percent Auto 16.2 % (20-40); Mean Corpuscular Hemoglobin 33.7 pg (27.0-33.0); Mean Corpuscular Volume 99.3 fL (80.0-98.0); Monocytes Absolute Auto 0.6 X10*3/uL (0.1-1.2); Monocytes Percent Auto 7.8 % (2-11); Neutrophils Absolute Auto 5.4 x10*3/uL (2.0-8.3); Neutrophils Percent Auto 74.2 % (45-73); Platelet Count 147 X10*3/uL (160-400); Red Blood Count 4.09 X10*6/uL (4.60-5.80); Red Cell Distribution Width 13.3 % (11.0-16.0); White Blood Count 7.3 X10*3/uL (4.8-10.8)
[2025-04-22 13:56] LABS: Iron 71 mcg/dL (45-160); Percent Iron Saturation 29 % (15-50); Total Iron Binding Capacity 241 mcg/dL (228-428); Unsaturated Iron Binding 170 ug/dL
[2025-04-22 14:23] LABS: Folate 16.1 ng/mL (> or = 4.0); Vitamin B12 612 pg/mL (200-900)
== END 2025-04-22 11:00 | disposition home or self-care (01) ==
LOC: HO.XRAY 10:59
PROVIDERS: PCP Internal Medicine
DX: M25.551 Pain in right hip (principal); I25.10 Atherosclerotic heart disease of native coronary artery without angina pectoris; I48.0 Paroxysmal atrial fibrillation; E78.00 Pure hypercholesterolemia, unspecified; R73.02 Impaired glucose tolerance (oral); N40.0 Benign prostatic hyperplasia without lower urinary tract symptoms; R05.3 Chronic cough; D64.9 Anemia, unspecified
CPT/HCPCS: 36415; 73502; 82607; 82746; 83540; 85025; 99212

== ENCOUNTER → 2025-04-22 12:33 | Outpatient (BNV) | payer MEDICARE, OTHER, SELFPAY | PROVIDERS: PCP Internal Medicine; Visit Provider Radiology Diagnostic Radiology | DX: M16.11 Unilateral primary osteoarthritis, right hip (principal) | CPT/HCPCS: 73502 ==

== ENCOUNTER 2025-04-29 10:02 | Outpatient (AMB) | payer MEDICARE, OTHER, SELFPAY ==
--- NOTE | 2025-04-29 10:05 | MHC.OFFVIS ---
Vital Signs 04/29/25 10:06 Height 5 ft 8 in Weight 167 lb 6 oz BMI 25.4 BP 104/60 Blood Pressure Location Rt brachial Position Sitting Pulse 55 Pulse Source Pulse Oximeter Pulse Oximetry (%) 99 Oxygen Delivery Method Room Air Intake Visit Reasons: Shortness of breath Allergies prochlorperazine (From COMPAZINE) Allergy (Severe, Verified 04/29/25 10:08) N/V SEIZURES, 1950's HPI HPI Shortness of breath: Details: Tobias is a pleasant 74 year old male, never smoker, with underlying atrial fibrillation on Multaq/Xarelto, CAD, BPH and SVT. He was initially referred by PCP for pulmonary evaluation for chronic cough which has waxed and waned over the last 5 years. Recently reports resolution of cough however continues with intermittent throat clearing possible related to post nasal drip. He denies any dyspnea, wheezing or chest tightness. Today he presents to review CXR, RAST and PFT. He denies any visits to urgent care or hospitalizations related to respiratory distress. FORMERLY [facility] Medical History Screening for prostate cancer COVID-19 virus infection Medicare annual wellness visit, initial Thrombocytopenia Vitamin D deficiency Seizures Hepatitis History of torn meniscus of right knee Hypercholesterolemia Impaired glucose tolerance Paroxysmal atrial fibrillation SVT (supraventricular tachycardia) Surgical History History of tooth extraction Hx of colonoscopy Carpal tunnel syndrome S/P arthroscopic surgery of right knee History of left hip replacement Family History Father Medical history unknown Mother Medical history unknown Social History Housing: House Are you a primary post acute care registered nurse to a significant other at home: No Do you presently have visiting nurse or other home services: No Alcohol intake: current Alcohol intake frequency: a few times a week Alcohol type: wine Patient Tobacco Use Status: Never used Tobacco e-Cigarette/Vaping Use: Never Used Second Hand Smoke Exposure: No service: No Current occupational status: retired Cognitive needs: No Hearing needs: Yes Vision needs: Yes Review of Systems Const Denies chills, Denies excessive sweating, Denies fever(s), Denies headache(s) and Denies night sweats Eyes Denies dry eyes, Denies irritation and Denies itchy eyes ENT Reports Normal hearing present, Denies headache(s), Denies nasal congestion, Denies nasal discharge, Denies post nasal drip and Denies sore throat Card Denies chest pain, Denies chest pain at rest, Denies chest pain with activity, Denies claudication, Denies leg edema, Denies dyspnea, Denies dyspnea on exertion, Denies orthopnea and Denies paroxysmal nocturnal dyspnea Resp Denies chest congestion, Denies cough, Denies excessive phlegm production, Denies pain on inspiration, Denies pain with cough, Denies dyspnea, Denies dyspnea on exertion, Denies stridor and Denies wheezing Musc Denies myalgias Neuro Reports Normal hearing present and Denies headache(s) Endo Denies excessive sweating Richard/Lymph Denies lymphadenopathy Aller/Immun Denies itchy eyes, Denies seasonal rhinorrhea and Denies wheezing Physical Exam Vital Signs: BMI result Body Mass Index 25.4 Const General: cooperative, healthy appearing, comfortable, no acute distress, well developed and alert Orientation/consciousness: patient oriented x3 Limitations: no limitations HEENT Head: Yes normal to inspection, Yes normocephalic and Yes atraumatic Ears: hearing grossly normal bilaterally and external ears normal Eyes General: appearance normal, both eyes and all related structures Eyelids: Yes eyelids normal Sclerae: sclerae normal EOM: EOMs intact bilaterally Neck Neck: Yes normal visual inspection and Yes no lymphadenopathy Lymphatic: no lymphadenopathy noted Chest Chest palpation & inspection: normal inspection of the chest Resp Effort & Inspection: normal respiratory effort, able to speak in complete sentences, no audible wheezes, no cough, no stridor, not tachypneic, no tripod positioning and no use of accessory muscles Auscultation: clear to auscultation bilaterally Cardio Jugular venous distension: no JVD Rate: regular rate Rhythm: regular rhythm Skin Other: warm, dry General skin exam: no rashes or lesions noted Neuro General: patient oriented x3 Cranial nerves: Yes Normal hearing present Cognition (Neuro): normal cognition Gait exam (Neuro): Normal gait present Extrem General: Yes normal to inspection, Yes capillary refill normal, Yes no clubbing, cyanosis or edema and Yes no pedal edema Psych Appearance: grossly normal and well kempt Speech and movement: Normal speech and movement present and Clear speech present Affect: normal affect Attitude: cooperative Thought process: Normal thought process present Thought content: Normal thought content present Insight: Good insight present (Psych) Judgement: Good judgement present (Psych) Results Reviewed Results Reviewed: [address] [address] XRay Report Signed Patient: Tobias Morejon MR#: [id number] : 1950 Acct:[id number] Age/Sex: 74 / M ADM Date: 03/11/25 Loc: . Attending Dr: Aiden Murcia MD Ordering Physician: Kim Monroy NP Date of Service: 03/11/25 Procedure(s): XR chest 2V Accession Number(s): [id number] cc: Tasha Nelson MD; Kim Monroy NP~ EXAMINATION: XR CHEST CLINICAL INFORMATION: R05.3 - Chronic cough COMPARISON: October 22, 2024. TECHNIQUE: 2 views of the chest were obtained. FINDINGS: No consolidation, pleural effusion or pneumothorax. Cardiomediastinal silhouette size is normal. Calcified plaque aortic arch. Altered level thoracic and upper lumbar spondylosis. Degenerative changes in the acromioclavicular joints, bilaterally. XR/XR chest 2V IMPRESSION: No acute airspace disease. Spondylosis, thoracolumbar spine. Degenerative changes, acromioclavicular joints. Electronically signed by: Junior Crawford MD 03/11/2025 12:46 PM EDT Dictated By: Junior Lynch MD Signed By: <Electronically signed by Junior Powers MD in OV> 03/11/25 1246 DD/ 1222 TD/TT: 03/11/25 1234 Foam Gun Operator: Assessment & Plan Assessment & Plan (1) Chronic cough: Code(s): R05.3 - Chronic cough Category: Medical (2) Environmental allergies: Code(s): Z91.09 - Other allergy status, other than to drugs and biological substances Category: Medical Plan Reviewed PFT which revealed no obstructive or restrictive ventilatory defect. Significant bronchodilator response present in small to medium airways only. Lung volumes normal. CXR unremarkable. RAST + for dust mites. At this time, Tobias reports intermittent throat clearing likely related to post nasal drip. Reviewed ways to minimize allergen exposure. He otherwise denies any cough, dyspnea, wheezing or chest tightness. He is aware to call if symptoms change. All questions were answered and patient is in agreement of plan. Will follow-up in 9-12 months or sooner if needed. Coding Level of Care Code Est Pt Level 4 (18631) Diagnoses Chronic cough R05.3 Environmental allergies Z91.09
[2025-04-29 10:06] VITALS: BP 104/60; PULSE 55; O2SAT 99; BMI 25.4
--- OUTSIDE RECORDS SUMMARY | 2025-04-29 10:37 | XMS_ITS | Patient Health Record ---
Author Organization [facility] Address [address] [place] [address] Care Team Providers Care Developer Relations Manager Name Role Phone Tasha Nelson Primary Care Provider Gregorio Bishop Unavailable [phone] Allergies Allergen (clinical drug ingredient) Drug/Non Drug Allergy documented on EMR Reaction Allergy Type Onset Date Status Compazine seizure reaction Drug Allergy Active Reason For Referral No Information Medications Medication SIG (Take, Route, Frequency, Duration) Notes Start Date End Date Status Folic Acid 800 MCG 1 tablet Orally Once a day; Duration: 30 day(s) 11/23/2020 Active Flecainide Acetate 50 MG Oral; Duration: 90 Active Vitamin B12 1000 MCG 1 tablet Orally Onc e a day; Duration: 30 day(s) 11/23/2020 Active Metoprolol Succinate ER 25 MG Oral; Duration: 90 Active Metoprolol & Diet Manage Prod 25 1 Not-Taking Aspirin Adult Low Dose Not-Taking Xarelto 20 MG Oral; Duration: 90 Active Vitamin D3 25 MCG (1000 UT) 1 tablet Orally Once a day; Duration: 30 day(s) 11/23/2020 Active Physical Therapy . . . 2-3x/week; Durat ion: 3-4 weeks 12/20/2020 Not-Taking Night Splint AFO - [...] Risk Notes Problem Pain in left foot (8189958927553 07) Pain in left foot (M79.672) Active confirmed Problem Acquired hammer toe of right foot (0909188584757 105) Other hammer toe(s) (acquired), right foot [...] Medicare National Govt [employer] [address] [place] [address] [id number] Tobias Morejon Self - patient is the insured [facility] [address] [place] [address] [id number] Tobias Morejon Self - patient is the insured Medical (General) History Medical History History ICD Code right knee left hip Arthritis Back,Hip,and Knee pain Broken bones Heart disease Hepatitis Numbness Measles Mumps Chicken pox Joint implants/screws Surgical History Surgery Date(Month/Year) right knee 2013 left hip 2010 carpal tunnel 2016 kidney stones 10/2021 endoscopy 11/2021
== END 2025-04-29 11:02 | disposition home or self-care (01) ==
LOC: HO.HPSW 10:03
PROVIDERS: PCP Internal Medicine; Visit Provider Nurse Practitioner Family
DX: R05.3 Chronic cough (principal); Z91.09 Other allergy status, other than to drugs and biological substances
CPT/HCPCS: 99214

== ENCOUNTER → 2025-04-29 10:02 | Outpatient (BNVA) | payer MEDICARE, OTHER, SELFPAY | PROVIDERS: PCP Internal Medicine; Visit Provider Nurse Practitioner Family | DX: R05.3 Chronic cough (principal); Z91.09 Other allergy status, other than to drugs and biological substances | CPT/HCPCS: 99212 ==

== ENCOUNTER → 2025-06-16 08:46 | Outpatient (REF) | payer MEDICARE, OTHER, SELFPAY ==
--- NOTE | 2025-06-16 08:52 | CA_ITS ---
Transthoracic Echocardiogram Patient (Last, First, Middle): Tobias Morejon E Gender: Male Date of : 1950 Age: 74 Procedure Date: 06/16/2025 Procedure Type: Transthoracic Echocardiogram Location: OP Height: 172.72 cm Weight: 75.75 kg BSA: 1.89 m2 Heart Rate: bpm BP: 104 / 60 mmHg Target Aircraft Controller: SHAYNE Referring MD: Jerry Turner MD Steeler: Jerry Turner MD Symptoms: I47.1 - Supraventricular tachycardia Study Quality: Adequate ECG Rhythm: Sinus Conclusions: - 1. Normal LV ejection fraction 60 65% with impaired relaxation filling pattern 2. Moderate biatrial enlargement 3. Moderate tricuspid regurgitation 4. Mildly elevated right ventricular systolic pressure with significantly elevated right atrial pressures 5. No gross pericardial effusion Findings Left Ventricle Normal left ventricular size, thickness, and systolic function. The visually estimated ejection fraction is between 60-65%. Spectral Doppler is indicative of an impaired relaxation filling pattern. E/E prime ratio is between 8 and 15 consistent with indeterminate filling pressures. Right Ventricle Normal right ventricular cavity size and systolic function. Atria The left atrium is moderately dilated. There is no evidence of interatrial shunt. The right atrium is moderately dilated. Aortic Valve Normal aortic valve structure and function. There is no aortic valve stenosis. There is no aortic valve regurgitation. Mitral Valve Normal mitral valve structure and function. There is trace mitral valve regurgitation. There is no mitral valve stenosis. Pulmonic Valve The pulmonic valve is likely normal. Tricuspid Valve Normal tricuspid valve structure. There is moderate tricuspid valve regurgitation. Significantly elevated right atrial pressure. Mild pulmonary hypertension is present. Great Vessels All visible segments of the aorta are normal in size. The pulmonary artery was not well visualized. There is no dilatation of the ascending aorta measuring 3.40 cm. Venous The inferior vena cava is moderately dilated and collapses less than 50% with inspiration. Pericardium/Pleural There is no evidence of pericardial effusion. Prior Study Comparison No significant change compared to prior study dated: 01/13/2025. Recommendations, Care & Conclusions Consider a EVELYN if clinically appropriate. Measurements 2D Linear Measurements IVSd: 0.90 0.6-0.9/0.6-1.0 cm LVIDd: 4.40 3.9-5.3/4.2-5.9 cm LVIDd Index: 2.33 2.4-3.2/2.2-3.1 cm/m2 LVIDs: 2.70 2.0-3.6 cm LVPWd: 0.96 0.7-1.1 cm LA Diam: 3.40 2.7-3.8/3.0-4.0 cm LAIDs Index: 1.80 1.5-2.3 cm/m2 LV Mass: 166.90 67-162/88-224 g LV Mass Index: 88.31 43-95/49-115 g/m2 LVOT Diam: 2.00 3.0+(-)1.3 cm 2D Systolic Function EF 4C: 66.10 >55% EF 2C: 62.70 >55% EF BiP: 64.00 >55% Mitral Valve MV Pk E: 0.91 MV PK A: 0.82 MV Decel Time: 246.00 E/A: 1.10 E'Lateral: 7.83 E'Medial: 6.20 E/E' Med: 14.70 E/E' Lat: 11.70 PHT: 72.00 MVA PHT: 3.06 Decel [place]: 3.71 Aortic Valve AoV Pk Tino: 1.68 AoV Mn Tino: 1.19 AoV VTI: 0.42 AoV Pk Grad: 11.00 Aov Mn Grad: 6.00 JAMESON Cont.VTI: 2.29 LVOT LVOT Pk Tino: 1.23 LVOT Mn Tino: 0.84 LVOT VTI: 0.30 LVOT Pk Grad: 6.00 LVOT Mn Grad: 3.00 LVOT Diam: 2.00 LVOT Area: 3.14 Diastolic Function MV Pk E: 0.91 MV Pk A: 0.82 E/A: 1.10 E'Medial: 6.20 E/E' Med: 14.70 E' Laterial: 7.83 E/E' Lat: 11.70 Right Ventricle TAPSE (mm): 30.00 TVS' Tino: 12.70 Tricuspid Valve TR Pk Tino: 2.65 TR Pk Grad: 28.00 RA Press: 15.00 RVSP: 43.00 Great Vessels Aorta Sinus of Valsalva: 3.41 2.0-3.[address] [place]: 2.23 1.7-3.4 cm Ao Asc: 3.40 2.1-3.4 cm Updated in Other Vendor System with Status of Final Jerry Turner MD electronically signed on 06/16/2025 5:03:38 PM with status of Final
--- OUTSIDE RECORDS SUMMARY | 2025-06-16 09:01 | XMS_ITS | Patient Health Record ---
Author Organization [facility] Address [address] [place] [address] Care Team Providers Care Customer Solutions Specialist Name Role Phone Tasha Nelson Primary Care Provider Gregorio Bishop Unavailable [phone] Allergies Allergen (clinical drug ingredient) Drug/Non Drug [...] Vaccine Route Administration Date Status Comme nts Influenza Unknown 07/27/2021 Administered COVID-19 Moderna Vaccine Unknown 08/30/2021 Administered 1st 01/02/21 2nd 02/01/21 Social History Tobacco Use: Social History Observation [...] Risk Notes Problem Pain in left foot (1402964414862 07) Pain in left foot (M79.672) Active confirmed Problem Acquired hammer toe of right foot (0601726018963 105) Other hammer toe(s) (acquired), right foot [...] Medicare National Govt S[employer] [address] [facility] [place] [address] [id number] Tobias Morejon Self - patient is the insured [facility] [address] [place] [id number] Tobias Morejon Self - patient is the insured Medical (General) History Medical History History ICD Code right knee left hip Arthritis Back,Hip,and Knee pain Broken bones Heart disease Hepatitis Numbness Measles Mumps Chicken pox Joint implants/screws Surgical History Surgery Date(Month/Year) right knee 2013 left hip 2010 carpal tunnel 2016 kidney stones 10/2021 endoscopy 11/2021
--- OUTSIDE RECORDS SUMMARY | 2025-06-16 09:01 | XMS_ITS | Patient Health Record ---
Author Organization [facility] Address [address] [place] [address] Care Team Providers Care Oracle Applications Analyst Name Role Phone Saeid Parr MD Primary Care Provider Vipul Matthew [phone] Allergies Allergen (clinical drug ingredient) Drug/Non Drug Allergy documented on EMR Reaction Allergy Type Onset Date Status compazine (uncoded) Unknown Allergy Active Reason For Referral No Information Medications Medication SIG (Take, Route, Fr equency, Duration) Notes Start Date End Date Status Aspir-81 Active LORazepam 11/03/2024 11/03/2024 Active Metoprolol Tartrate 11/03/2024 1 Active MoviPrep 100 GM as directed Orally 1 time only for 1 dose 03/17/2012 Active Problems Problem Type SNOMED Code ICD Code Onset Dates Problem Status W/U Status Risk Notes Problem History of polyp of colon (situation) (816279514) Personal history of colonic polyps (V12.72) Active confirmed Problem Screening for malignant neoplasm of colon (430107586) Special screening for malignant neoplasms, colon (V76.51) Active confirmed Plan Of Treatment Future Test Test Name Order Date COLONOSCOPY 03/17/2012 Insurance Providers Payer Name Payer Address Payer Phone Subscriber Number Group Number Insured Name Patient Relationship to Insured Coverage Start Date Coverage End Date [employer] [address] [place] [address] [id number] JACKIE WESLEY Self - patient is the insured Medical (General) History Medical History History ICD Code colonoscopy on 05-01-2007 with removal of a tubular adenoma supraventricular tachycardia in approx. 2007 Denies [place],DM,CVA,Lung disease,renal dise ase HTN Surgical History Surgery Date(Month/Year) Left hip replacement in [facility] 2009 Knee
== END ==
LOC: HO.CARD 08:46
PROVIDERS: PCP Internal Medicine; Visit Provider Internal Medicine Cardiovascular Disease
DX: I25.10 Atherosclerotic heart disease of native coronary artery without angina pectoris (principal); I48.0 Paroxysmal atrial fibrillation; I47.10 Supraventricular tachycardia, unspecified
CPT/HCPCS: 93306

== ENCOUNTER → 2025-06-16 08:52 | Outpatient (BNV) | payer MEDICARE, OTHER, SELFPAY | PROVIDERS: PCP Internal Medicine; Visit Provider Internal Medicine Cardiovascular Disease | DX: I27.20 Pulmonary hypertension, unspecified (principal); I36.1 Nonrheumatic tricuspid (valve) insufficiency; I51.7 Cardiomegaly | CPT/HCPCS: 93306 ==

== ENCOUNTER 2025-06-17 10:37 | Outpatient (AMB) | payer MEDICARE, OTHER, SELFPAY ==
--- NOTE | 2025-06-17 10:38 | MHC.OFFVIS ---
Intake Visit Reasons: 3M follow up Intake Note: Pt presents to the office today for: TELEHEALTH 3MO FOLLOW UP UROLOGY MEDICATIONS: VIT B-6 BLOOD THINNERS: XARETTO LAST PVR: 8MLS Molding Machine Setter Required: No Accompanied by: Self / Same As Patient Allergies prochlorperazine (From COMPAZINE) Allergy (Severe, Verified 06/21/25 08:10) N/V SEIZURES, 1950's HPI Comments Details: Tobias is a pleasant male. He is a patient of Dr. Nelson. He is seen for the following urologic conditions - nephrolithiasis - lower urinary tract symptoms Telemedicine Evaluation 15 min Consultation [employer] Fabien Video Follow-up trial tamsulosin Encourage fluid intake Remain on B6 Surveillance imaging Nephrolithiasis calcium oxalate ER visit late September 2021 Triggered by discoloration to urine Family history positive with father and brother forming stones Imaging 09/23 distal left ureteric stone with hydroureteronephrosis, left upper pole stone 7 mm - 01/22 ultrasound no evidence of stones - 08/24 ultrasound, question of small 3 mm stone on left side - 02/23 ultrasound 3 mm stone left side - 02/24 ultrasound no stones seen - 02/25 renal ultrasound small stone left Intervention - 09/23 ureteroscopy with laser lithotripsy left side - 12/25 left ESWL Stone analysis 09/23 calcium oxalate dihydrate Therapeutic plan encourage fluid intake - surveillance imaging - [facility] Medical History Screening for prostate cancer COVID-19 virus infection Medicare annual wellness visit, initial Thrombocytopenia Vitamin D deficiency Seizures Hepatitis History of torn meniscus of right knee Hypercholesterolemia Impaired glucose tolerance Paroxysmal atrial fibrillation SVT (supraventricular tachycardia) Surgical History History of tooth extraction Hx of colonoscopy Carpal tunnel syndrome S/P arthroscopic surgery of right knee History of left hip replacement Family History Father Medical history unknown Mother Medical history unknown Social History Housing: House Are you a primary geriatric personal care aide to a significant other at home: No Do you presently have visiting nurse or other home services: No Alcohol intake: current Alcohol intake frequency: a few times a week Alcohol type: wine Patient Tobacco Use Status: Never used Tobacco e-Cigarette/Vaping Use: Never Used Second Hand Smoke Exposure: No service: No Current occupational status: retired Cognitive needs: No Hearing needs: Yes Vision needs: Yes Review of Systems Const Denies chills and Denies fever(s) Card Reports no additional complaints and Denies syncope Resp Denies cough GI Denies abdominal pain and Denies heartburn Reports as per HPI and Denies change in libido Neuro Denies syncope Psych Denies change in libido Endo Denies change in libido Physical Exam Const General: cooperative, healthy appearing, comfortable and no acute distress Orientation/consciousness: patient oriented x3 HEENT Face and sinus: Yes normal facial exam Mouth: moist mucous membranes Neck Neck: Yes normal visual inspection, Yes full ROM and Yes trachea midline Chest Chest palpation & inspection: normal inspection of the chest Resp Effort & Inspection: normal respiratory effort, able to speak in complete sentences and no respiratory distress GI Inspection: Yes normal to inspection Back/Spine/Pelvis Cervical Spine: normal cervical lordosis Thoracic/Lumbar Spine: thoracic and lumbar spine normal to inspection Skin General skin exam: no rashes or lesions noted Neuro General: patient oriented x3, gait normal, tone normal and moves all extremities Extrem General: Yes normal to inspection and Yes capillary refill normal Telehealth Telehealth Telehealth Platform: [employer] Location of provider rendering services: practice address Location of patient: address on file Patient Identification confirmed using: Name, : Yes Telehealth method: video Patient verbally consented to treatment: Yes Patient verbally consented to billing insurance company: Yes Patient informed of any privacy concerns related to visit: Yes Minutes spent on Phone/Video with Pt.: 15 Assessment & Plan Assessment & Plan (1) BPH (benign prostatic hyperplasia): Code(s): N40.0 - Benign prostatic hyperplasia without lower urinary tract symptoms Category: Medical Plan Increase dosage Follow-up ultrasound bladder Orders: Orders US bladder 06/17/25 N40.0 - Benign prostatic hyperplasia without lower urinary tract symptoms Patient Instructions: This note is constructed using voice recognition software. While every effort has been made to ensure accuracy credit risk specialist errors may have been included. Imaging studies, laboratory and physical exam results were discussed and reviewed in detail. No major barriers to patient understanding were identified. An opportunity to ask questions regarding the treatment plan was provided. All questions were answered. The patient expressed understanding and agreement with the above treatment plan. The patient is aware they should contact our office by phone for worsening of their current condition or the appearance of new urologic symptoms. Compliance is encouraged with any medications and followup testing that is ordered. It is a privilege to participate in the urologic care of your patient. If you have any questions or concerns regarding treatment for the above conditions, or other urologic issues, please do not hesitate to contact me. The office telephone contact is [phone]. Sincerely, Dr Aiden Murcia MD, [facility] - Urology Compassionate Specialist Care for the Genitourinary System Coding Level of Care Code Tele Est Pt Level 3 (28847) Diagnoses BPH (benign prostatic hyperplasia) N40.0
--- OUTSIDE RECORDS SUMMARY | 2025-06-17 10:42 | XMS_ITS | Patient Health Record ---
Author Organization [facility] Address [address] [place] [place] [address] Care Team Providers Care Junior Linux Systems Administrator Name Role Phone Tasha Nelson Primary Care Provider Gregorio Bishop Unavailable [phone] Allergies Allergen (clinical drug ingredient) Drug/Non Drug [...] Risk Notes Problem Pain in left foot (4817570574274 07) Pain in left foot (M79.672) Active confirmed Problem Acquired hammer toe of right foot (9711297831306 105) Other hammer toe(s) (acquired), right foot [...] Medicare National Govt S[employer] [address] [place] [address] [id number] Tobias Morejon Self - patient is the insured [facility] [address] [place] [phone] [id number] Tobias Morejon Self - patient is the insured Medical (General) History Medical History History ICD Code right knee left hip Arthritis Back,Hip,and Knee pain Broken bones Heart disease Hepatitis Numbness Measles Mumps Chicken pox Joint implants/screws Surgical History Surgery Date(Month/Year) right knee 2013 left hip 2010 carpal tunnel 2016 kidney stones 10/2021 endoscopy 11/2021
--- OUTSIDE RECORDS SUMMARY | 2025-06-17 10:43 | XMS_ITS | Patient Health Record ---
Author Organization [facility] Address [address] [place] [address] Care Team Providers Care Watch Crystal Grinder Name Role Phone Saeid Parr MD Primary Care Provider Vipul Matthew [phone] Allergies Allergen (clinical drug ingredient) Drug/Non Drug [...] Problem Status W/U Status Risk Notes Problem Personal history of colonic polyps (V12.72) Active confirmed Problem Screening for malignant neoplasm of colon (066333571) Special screening for malignant neoplasms, colon (V76.51) Active confirmed Plan Of Treatment Future Test Test Name Order Date COLONOSCOPY 03/17/2012 Insurance Providers Payer Name Payer Address Payer Phone Subscriber Number Group Number Insured Name Patient Relationship to Insured Coverage Start Date Coverage End Date [facility] INDEMNITY [address] [place] [address] [phone] [id number] JACKIE WESLEY Self - patient is the insured Medical (General) History Medical History History ICD Code colonoscopy on 05-01-2007 with removal of a tubular adenoma supraventricular tachycardia in approx. 2007 Denies [place],DM,CVA,Lung disease,renal dise ase HTN Surgical History Surgery Date(Month/Year) [facility] Knee
== END 2025-06-17 11:34 | disposition home or self-care (01) ==
LOC: HO.HUSH 10:37
PROVIDERS: PCP Internal Medicine; Visit Provider Urology
DX: N40.0 Benign prostatic hyperplasia without lower urinary tract symptoms (principal)
CPT/HCPCS: 99213

== ENCOUNTER 2025-06-21 07:55 | Outpatient (AMB) | payer MEDICARE, SELFPAY ==
--- OUTSIDE RECORDS SUMMARY | 2025-06-21 07:57 | XMS_ITS | Patient Health Record ---
Author Organization [facility] Address [address] [place] [address] Care Team Providers Care Nitrocellulose Maker Name Role Phone Saeid Parr MD Primary Care Provider Vipul Matthew [phone] Allergies Allergen (clinical drug ingredient) Drug/Non Drug [...] Problem History of polyp of colon (situation) (972194982) Personal history of colonic polyps (V12.72) Active confirmed Problem Screening for malignant neoplasm of colon (337723285) Special screening for malignant neoplasms, colon (V76.51) Active confirmed Plan Of Treatment Future Test Test Name Order Date COLONOSCOPY 03/17/2012 Insurance Providers Payer Name Payer Address Payer Phone Subscriber Number Group Number Insured Name Patient Relationship to Insured Coverage Start Date Coverage End Date [employer] IN[employer] [address] [place] [address] [id number] JACKIE WESLEY Self - patient is the insured Medical (General) History Medical History History ICD Code colonoscopy on 05-01-2007 with removal of a tubular adenoma supraventricular tachycardia in approx. 2007 Denies [place],DM,CVA,Lung disease,renal dise ase HTN Surgical History Surgery Date(Month/Year) Left hip replacement in [facility] 2009 Knee
--- OUTSIDE RECORDS SUMMARY | 2025-06-21 07:57 | XMS_ITS | Patient Health Record ---
Author Organization [facility] Address [address] [address] Care Team Providers Care Pharmacy Tech Name Role Phone Tasha Nelson Primary Care Provider Gregorio Bishop Unavailable [phone] Allergies Allergen (clinical drug ingredient) Drug/Non Drug [...] Risk Notes Problem Pain in left foot (0267134707858 07) Pain in left foot (M79.672) Active confirmed Problem Acquired hammer toe of right foot ([id number] 105) Other hammer toe(s) (acquired), right foot [...] Medicare [employer] [address] [place] [address] [id number] Tobias Morejon Self - patient is the insured [facility] [address] [place] [id number] Tobias Morejon Self - patient is the insured Medical (General) History Medical History History ICD Code right knee left hip Arthritis Back,Hip,and Knee pain Broken bones Heart disease Hepatitis Numbness Measles Mumps Chicken pox Joint implants/screws Surgical History Surgery Date(Month/Year) right knee 2013 left hip 2010 carpal tunnel 2016 kidney stones 10/2021 endoscopy 11/2021
--- NOTE | 2025-06-21 08:06 | AM.OFFVISMDC ---
Intake Vital Signs 06/21/25 08:09 Height 5 ft 8 in Weight 167 lb 8 oz BMI 25.5 BP 110/60 Blood Pressure Location Lt brachial Position Sitting Pulse 60 Pulse Source Pulse Oximeter Temp 97.1 F Temp Source Temporal Artery Scan Pulse Oximetry (%) 99 Oxygen Delivery Method Room Air Intake Visit Reasons: SWV G0439 Intake Note: Patient is here for an Annual Wellness Visit. Optical Assistant Required: No Construction Operations Manager: Construction Operations Manager offered & declined Accompanied by: Self / Same As Patient Allergies prochlorperazine (From COMPAZINE) Allergy (Severe, Verified 06/21/25 08:10) N/V SEIZURES, 1949' Medication List - Last Reconciled 06/21/25 by Naa Bonilla PA-C atorvastatin 20 mg PO DAILY cholecalciferol (vitamin D3) 25 mcg PO DAILY cyanocobalamin (vitamin B-12) 1,000 mcg PO 2XW dronedarone (Multaq) 400 mg PO BID pyridoxine (vitamin B6) 50 mg PO DAILY 90 days rivaroxaban (Xarelto) 20 mg PO DAILY tamsulosin (Flomax) 0.4 mg PO BEDTIME 30 days HPI SWV G0439 HPI Details 74-year-old male with atrial fibrillation on anticoagulation and flecainide, impaired glucose tolerance, hypercholesterolemia, BPH, and nephrolithiasis last seen 12/2024 coming in for AWV.? In review of the notes, patient was seen by Urology 06/2025 plan for bladder ultrasound.?Seen by pulmonology 04/2025 discussed ways to minimize allergen exposure and follow up in 1 year. Presenting for a wellness visit and management of chronic conditions. He has a history of Gastroesophageal Reflux Disease (GERD) without recent exacerbations. Dizziness is being managed with vestibular therapy, showing improvement in balance and walking. Osteoarthritis of the hip is present, with moderate arthritis on x-ray, considering cortisone injections. Eye exam: yearly with Dr. Heller Colonoscopy: 2021 Dr. Pierce Vaccines: UTD Advanced Directives: HCP & MOLST completed [facility] Medical History Screening for prostate cancer COVID-19 virus infection Medicare annual wellness visit, initial Thrombocytopenia Vitamin D deficiency Seizures Hepatitis History of torn meniscus of right knee Hypercholesterolemia Impaired glucose tolerance Paroxysmal atrial fibrillation SVT (supraventricular tachycardia) Surgical History History of tooth extraction Hx of colonoscopy Carpal tunnel syndrome S/P arthroscopic surgery of right knee History of left hip replacement Family History Father Medical history unknown Mother Medical history unknown Social History Housing: House Are you a primary direct care professional to a significant other at home: No Do you presently have visiting nurse or other home services: No Alcohol intake: current Alcohol intake frequency: a few times a week Alcohol type: wine Patient Tobacco Use Status: Never used Tobacco e-Cigarette/Vaping Use: Never Used Second Hand Smoke Exposure: No service: No Current occupational status: retired Cognitive needs: No Hearing needs: Yes Vision needs: Yes Questionnaire Medicare Wellness Checkup [age] What gender do you identify with?: male During the past 4 weeks, how much have you been bothered by emotional problems such as feeling anxious, depressed, irritable, sad or downhearted, and blue?: slightly During the past 4 weeks, has your physical & emotional health limited your social activities with family, friends, neighbors, or groups?: slightly During the past 4 weeks, how much bodily pain have you generally had?: very mild pain During the past 4 weeks, was someone available to help you if you needed & wanted help?: yes, as much as I wanted During the past 4 weeks, what was the hardest physical activity you could do for at least 2 minutes?: moderate Can you get to places out of walking distance without help? (For eg., can you travel alone on buses, taxis or drive your car?): Yes Can you go shopping for groceries or clothes without someone's help?: Yes Can you prepare your own meals?: Yes Can you do your housework without help?: Yes Because of any health problems, do you need the help of another person with your personal care needs such as eating, bathing, dressing or getting around the house?: No Can you handle your own money without help?: Yes During the past 4 weeks, how would you rate your health in general?: very good During the past 4 weeks how have things been going for you?: good & bad parts about equal Are you having difficulties driving your car?: no Do you always fasten your seat belt when you are in a car?: yes, usually During past 4 weeks, have you been bothered by the following: never: Falling or dizzy when standing up, Sexual problems?, Trouble eating well?, Teeth or denture problems? and Problems using the telephone? and seldom: Tiredness or fatigue? Have you fallen 2 or more times in the past year?: No Are you afraid of falling?: Yes Are you a smoker?: no During the past 4 weeks, how many drinks of wine, beer, or other alcoholic beverages did you have?: 2-5 drinks per week Do you exercise for about 20 minutes 3 or more times a week?: yes, some of the time Have you been given information to help with the following?: no: Hazards in your house that might hurt you? and no: Keeping track of your medications? How often do you have trouble taking medicines the way you have been told to take them?: I always take medicine as prescribed How confident are you that you can control & manage most of your health problems?: very confident What is your race?: White Mini Mental State Exam (MMSE) Orientation What is the (year) (season) (date) (day) (month)?: year, season, date, day and month Where are we (state) (county) (town or city) (hospital) (floor)?: state, county, town or city, hospital/clinic and floor Score Score: 10 Activity of Daily Living Bathing - sponge bath, tub bath or shower: receives no assistance (gets in/out by self, if usual bathing means Dressing - getting clothes from closets & drawers, including inner/outer garments & fasteners.: gets clothes & gets completely dressed without help Toileting - going to the 'toilet room' for urine/bowel elimination & cleaning self/arranging clothes: goes to toilet room, cleans self, arranges clothes without help Transfer: moves in & out of bed and chair without help (may use support object) Continence: controls urination/bowel movements completely by self Feeding: feeds self without help Total Score: 0 Information obtained from: patient Using telephone: independent Traveling: independent Shopping: independent Preparing meals: independent Housework: independent Taking medicine: independent Managing money: independent PHQ-9 Over the last 2 weeks, how often have you been bothered by any of the following problems? 1. Little interest or pleasure in doing things: nearly every day 2. Feeling down, depressed, or hopeless: not at all 3. Trouble falling or staying asleep, or sleeping too much: not at all 4. Feeling tired or having little energy: not at all 5. Poor appetite or overeating: not at all 6. Feeling bad about yourself - or that you are a failure or have let yourself or your family down: several days 7. Trouble concentrating on things, such as reading the newspaper or watching television: not at all 8. Moving or speaking so slowly that other people could have noticed. Or the opposite - being so fidgety or restless that you have been moving around a lot more than usual: several days 9. Thoughts that you would be better off or of hurting yourself in some way: not at all Total score: 5 Depression Screening Interpretation: Positive Depression Screening Done: Yes Source: Developed by Drs. Vipul Espinoza, Aidee Ji, Marcello Harrison and colleagues, with an educational chepe from [employer]. Thrive Questionnaire Date Thrive assessed: 04/22/25 I am a: Patient What is your living situation today?: I have a steady place to live Within the past 12 months, did the food you bought not last and you didn't have the money to get more?: Never true Within the past 12 months, did you worry whether your food would run out before you got money to buy more?: Never true Do you have trouble paying for medicines?: No Do you have trouble getting transportation to medical appointments?: No Do you have trouble paying your heating and electricity bill?: No Do you have trouble taking care of your child, family member or friend?: No Do you have trouble with day-to-day activities such as bathing, preparing meals, shopping, managing finances, etc.?: No Are you currently unemployed and looking for a job?: I choose not to answer this question Are you interested in more education?: No Please select the resources that you would like help with: None Currently or been in a relationship where the following occur: No concerns reported THRIVE Score: 0 RANDY-7 AMB Questionnaire RANDY-7 Date RANDY - 7 assessed: 12/20/24 Source: Developed by Drs. Vipul Espinoza, Aidee Ji, Marcello Harrison and colleagues, with an educational chepe from [employer]. Review of Systems Const Denies body aches, Denies fatigue, Denies fever(s), Reports frequent falls, Denies headache(s) and Denies weakness Eyes Reports no additional complaints, Denies change in vision and Reports requires corrective lenses ENT Denies dysphagia, Denies dizziness, Denies facial pain, Denies headache(s) and Denies odynophagia Card Denies chest pain, Denies syncope, Denies irregular heart rhythm, Denies leg edema, Denies lightheadedness and Denies dyspnea Resp Denies cough and Denies dyspnea GI Denies abdominal pain, Reports constipation (rarely), Denies dysphagia, Denies dyspepsia, Denies diarrhea, Denies nausea, Denies odynophagia and Denies vomiting Denies dysuria, Reports urinary frequency, Denies urinary hesitancy and Denies urinary urgency Musc Details: right hip pain Denies back pain Skin/Breast Reports system reviewed and no additional complaints, except as documented Neuro Denies dizziness, Denies syncope, Reports frequent falls, Denies headache(s) and Denies weakness Psych Reports no additional complaints Endo Denies fatigue Physical Exam Vital Signs: Last Vital Signs Temp 97.1 F 06/21/25 08:09 Pulse 60 06/21/25 08:09 BP 110/60 06/21/25 08:09 Pulse Ox 99 06/21/25 08:09 Oxygen Delivery Method Room Air 06/21/25 08:09 BMI result Body Mass Index 25.5 Const General: cooperative, healthy appearing, comfortable and no acute distress Orientation/consciousness: patient oriented x3 HEENT Head: Yes normocephalic Ears: hearing grossly normal bilaterally, external ears normal, TM's normal bilaterally and EAC's normal General nose exam: Normal external nose present Face and sinus: Yes normal facial exam and Yes sinuses nontender Mouth: Normal oral and palatal mucosa present and tongue normal Throat: Yes posterior oropharynx normal Eyes General: appearance normal, both eyes and all related structures Conjunctivae: conjunctivae normal Pupils: Equal, round and reactive pupils present EOM: EOMs intact bilaterally and No Nystagmus present Neck Neck: Yes normal visual inspection, Yes full ROM and Yes no lymphadenopathy Chest Chest palpation & inspection: normal inspection of the chest Resp Effort & Inspection: normal respiratory effort Auscultation: clear to auscultation bilaterally, no crackles, no rales, no rhonchi, no wheezes and breath sounds present Cardio Rate: regular rate Rhythm: regular rhythm Peripheral pulses: radial pulses present and dorsalis pedis present GI Inspection: Yes normal to inspection and No Abdominal wall edema Palpation (GI): Soft to palpation, not firm and nontender Auscultation: normal bowel sounds Rectal Exam - Male: Yes deferred General: Yes no CVA tenderness Back/Spine/Pelvis Back: no CVA tenderness Skin General skin exam: no rashes or lesions noted Neuro General: patient oriented x3 Cranial nerves: Yes Equal, round and reactive pupils present, Yes Midline tongue present, Yes Ability to bilaterally elevate shoulders present and No Nystagmus present Gait exam (Neuro): Normal gait present Extrem General: Yes normal to inspection, Yes full ROM, No no pedal edema and No edema Psych Speech and movement: Normal speech and movement present Affect: normal affect Insight: Good insight present (Psych) Judgement: Good judgement present (Psych) Assessment & Plan Assessment & Plan (1) Medicare annual wellness visit, subsequent: Code(s): Z00.00 - Encounter for general adult medical examination without abnormal findings Plan: Patient is up-to-date on all recommended routine screenings and vaccinations for his age. Blood work is up-to-date and has been reviewed with the patient today. Healthy diet and regular exercise is encouraged. [place] of care was reviewed with patient patient was provided with a written screening schedule. Healthcare proxy/ MOLST forms were reviewed with patient and he has previously completed these and they are on file. (2) Environmental allergies: Code(s): Z91.09 - Other allergy status, other than to drugs and biological substances Plan: Recently seen by pulmonology for chronic cough determined to be allergy related. Continue on allergy medication and follow up as needed with pulmonology. (3) CAD (coronary artery disease): Comment: 06/2024 AGATSON SCoRE 597 0 Agatston units ? No identifiable disease ?1 to 99 Agatston units ? Mild disease ?100 to 399 Agatston units ? Moderate disease ?=400 Agatston units ? Severe disease Code(s): I25.10 - Atherosclerotic heart disease of red devil coronary artery without angina pectoris Plan: Patient having high calcium score was recently started on atorvastatin by his rigging slinger. Continue to manage cholesterol, blood pressure and blood sugars. Aspirin deferred as patient is currently on Xarelto and high-risk for bleed. (4) Hypercholesterolemia: Code(s): E78.00 - Pure hypercholesterolemia, unspecified Plan: Avoid foods that are high in cholesterol such as red meat, fried foods, eggs and baked goods. Triglyceride goal of less than 150 and LDL goal of less than 70. Continue on atorvastatin 80 (5) Impaired glucose tolerance: Code(s): R73.02 - Impaired glucose tolerance (oral) Plan: Decrease the amount of carbohydrates such as pasta, bread, rice, and potatoes and limit the amount of sweets. Although fruits are generally healthy they should be eaten in moderation as they are still high in sugar. (6) Vitamin D deficiency: Code(s): E55.9 - Vitamin D deficiency, unspecified Plan: Currently on supplementation and plan to continue to monitor blood work (7) Colon cancer screening: Code(s): Z12.11 - Encounter for screening for malignant neoplasm of colon Plan: Completed [place] [address] Pierce (8) Nephrolithiasis: Comment: October 2021 combined calcium oxalate stone [facility]SW[facility] January 2022 Dr. Murcia Code(s): N20.0 - Calculus of kidney Plan: Continue to follow with Dr. Murcia (9) Paroxysmal atrial fibrillation: Code(s): I48.0 - Paroxysmal atrial fibrillation Plan: Continue to follow with rigging slinger's is on Multaq and Xarelto. (10) BPH (benign prostatic hyperplasia): Code(s): N40.0 - Benign prostatic hyperplasia without lower urinary tract symptoms Plan: Continue to follow with Urology and plan for bladder ultrasound and the coming months. He has seen an improvement in his symptoms since starting on the Flomax. (11) Anemia: Code(s): D64.9 - Anemia, unspecified Plan: Continue to monitor blood work at this time. 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 (13) Osteoarthritis of right hip: Code(s): M16.11 - Unilateral primary osteoarthritis, right hip Plan: Patient is seeing Orthopedics next month. Plan The patient will continue vestibular therapy to manage dizziness, which has shown improvement. Cortisone injections are being considered for hip osteoarthritis. The increased dose of Flomax will be maintained for benign prostatic hyperplasia, effectively reducing nocturia. Allergy management includes continued use of medications and nasal sprays. Atrial fibrillation is managed with medication, with no recent episodes reported. Preventative care includes a colonoscopy in 2021 with no significant findings. Regular follow-ups are encouraged to monitor chronic conditions and ensure effective management. This note was constructed using voice recognition software. While every effort has been made to ensure accuracy and running instructor, still areas may have been included sometimes these areas may affect the content or meeting of the given symptoms. Total time spent caring for the patient today was 30 minutes. This includes time spent before the visit reviewing the chart, time spent during the visit, and time spent after the visit and documentation. Patient was informed and verbally consented to the use of an ambient scribe for clinic note documentation during this visit. Orders: Orders Comprehensive Met. Panel Today I25.10 - Atherosclerotic heart disease of red devil coronary artery without angina pectoris, Z00.00 - Encounter for general adult medical examination without abnormal findings TSH reflex Free T4 Today Z13.29 - Encounter for screening for other suspected endocrine disorder Vitamin D 25-OH Total Today Z13.21 - Encounter for screening for nutritional disorder Free T4 (Free Thyroxine) Today Z00.00 - Encounter for general adult medical examination without abnormal findings PSA, Ultra Sensitive Today N40.0 - Benign prostatic hyperplasia without lower urinary tract symptoms, Z00.00 - Encounter for general adult medical examination without abnormal findings Complete Blood Count Auto Diff Today I25.10 - Atherosclerotic heart disease of red devil coronary artery without angina pectoris, Z00.00 - Encounter for general adult medical examination without abnormal findings Vitamin B12 and Folate Today Z13.21 - Encounter for screening for nutritional disorder Lipid Panel Today E78.00 - Pure hypercholesterolemia, unspecified Quality Reporting (2019) Depression/Bipolar (159/160/161/177) PHQ-9: Total score: 5 Coding Level of Care Code Medicare Subsequent (G0439) Diagnoses Medicare annual wellness visit, subsequent Z00.00 Environmental allergies Z91.09 CAD (coronary artery disease) I25.10 Hypercholesterolemia E78.00 Impaired glucose tolerance R73.02 Vitamin D deficiency E55.9 Colon cancer screening Z12.11 Nephrolithiasis N20.0 Paroxysmal atrial fibrillation I48.0 BPH (benign prostatic hyperplasia) N40.0 Anemia D64.9 Vestibular neuronitis, bilateral H81.23 Osteoarthritis of right hip M16.11 CPT Codes Advance Care Planning - Advance Care Planning discussion: On file, no changes ([id number]) Advance Care Planning - Time spent: 1-15 minutes, on File ([id number]) Advance Care Planning Advance Care Planning discussion: On file, no changes Date of discussion: 06/21/25 Who was present: myself, patient Forms completed: Health Care Proxy and MOLST Time spent: 1-15 minutes, on File Did not discuss due to Cultural/Spiritual beliefs: No
[2025-06-21 08:09] VITALS: BP 110/60; PULSE 60; TEMP 36.2; O2SAT 99; BMI 25.5
== END 2025-06-21 09:24 | disposition home or self-care (01) ==
LOC: HO.HMCH 07:56
PROVIDERS: PCP Internal Medicine
DX: Z00.00 Encounter for general adult medical examination without abnormal findings (principal); I25.10 Atherosclerotic heart disease of native coronary artery without angina pectoris; E78.00 Pure hypercholesterolemia, unspecified; I48.0 Paroxysmal atrial fibrillation; R73.02 Impaired glucose tolerance (oral); E55.9 Vitamin D deficiency, unspecified; Z91.09 Other allergy status, other than to drugs and biological substances; N40.0 Benign prostatic hyperplasia without lower urinary tract symptoms; Z12.11 Encounter for screening for malignant neoplasm of colon; N20.0 Calculus of kidney; D64.9 Anemia, unspecified; H81.23 Vestibular neuronitis, bilateral

== ENCOUNTER 2025-06-30 10:56 | Outpatient (REF) | payer OTHER, MEDICARE, SELFPAY ==
--- NOTE | ~2025-06-30 | XR_ITS ---
EXAMINATION: XR PELVIS CLINICAL INFORMATION: M25.559 - Pain in unspecified hip COMPARISON: Correlated to CT abdomen pelvis dated September 23, 2021. TECHNIQUE: AP view of the pelvis. FINDINGS: Total left hip arthroplasty prosthesis well-seated in the osseous acetabulum and proximal femur. Subchondral cyst formation and sclerosis along the articular surface of the right coxofemoral joint with asymmetric joint space narrowing. Small marginal osteophyte formation in the right femoral head. No acute fracture, bony pelvis. Vascular calcifications. XR/XR pelvis 1-2V IMPRESSION: Moderate osteoarthritis/osteoarthrosis, right hip. No acute fracture. Status post total left hip arthroplasty prosthesis, unchanged. Atherosclerosis disease. Electronically signed by: Junior Crawford MD 06/30/2025 11:37 AM EDT
== END 2025-06-30 10:57 | disposition home or self-care (01) ==
LOC: HO.HOSX 10:56
PROVIDERS: PCP Internal Medicine; Visit Provider Orthopaedic Surgery
DX: M16.11 Unilateral primary osteoarthritis, right hip (principal)
CPT/HCPCS: 72170

== ENCOUNTER 2025-06-30 10:56 | Outpatient (AMB) | payer OTHER, MEDICARE, SELFPAY ==
--- NOTE | 2025-06-30 11:04 | A.OFFVIS_ITS ---
Intake Visit Reasons: New Pt - Right Hip OA Intake Note: Tobias is a 74 year old male who presents today as a New Patient with complaints of Right Hip Pain. Patient reports that the left hip began bothering him shortly after his left hip surgery. He has difficulty getting in and out of the car, and when switching from the gas to the brake in the car. He has some mild increased pain with prolonged walking, this pain radiates to the knee. No history of cortisone injections or previous treatments for the right hip. History of a Left Hip Replacement by Dr. Bernardo in [place] ~2009 Allergies prochlorperazine (From COMPAZINE) Allergy (Severe, Verified 06/21/25 08:10) N/V SEIZURES, 1949's HPI HPI New Pt - Right Hip OA: Details: Tobias is a 74 year old male who presents today as a New Patient with complaints of Right Hip Pain. Patient reports that the left hip began bothering him shortly after his left hip surgery. He has difficulty getting in and out of the car, and when switching from the gas to the brake in the car. He has some mild increased pain with prolonged walking, this pain radiates to the knee. No history of cortisone injections or previous treatments for the right hip. History of a Left Hip Replacement by Dr. Bernardo in [place] ~2009 [facility] Medical History Screening for prostate cancer COVID-19 virus infection Medicare annual wellness visit, initial Thrombocytopenia Vitamin D deficiency Seizures Hepatitis History of torn meniscus of right knee Hypercholesterolemia Impaired glucose tolerance Paroxysmal atrial fibrillation SVT (supraventricular tachycardia) Surgical History History of tooth extraction Hx of colonoscopy Carpal tunnel syndrome S/P arthroscopic surgery of right knee History of left hip replacement Family History Father Medical history unknown Mother Medical history unknown Social History Housing: House Are you a primary urgent care technician to a significant other at home: No Do you presently have visiting nurse or other home services: No Alcohol intake: current Alcohol intake frequency: a few times a week Alcohol type: wine Patient Tobacco Use Status: Never used Tobacco e-Cigarette/Vaping Use: Never Used Second Hand Smoke Exposure: No service: No Current occupational status: retired Cognitive needs: No Hearing needs: Yes Vision needs: Yes Physical Exam Const General: cooperative, healthy appearing, no acute distress, well developed and alert HEENT Head: Yes normal to inspection, Yes normocephalic and Yes atraumatic Mouth: moist mucous membranes Eyes General: appearance normal, both eyes and all related structures EOM: EOMs intact bilaterally Chest Other: no audible wheezing. Resp Other: No audible wheezing Effort & Inspection: normal respiratory effort Cardio Other: Radial pulse palpable with no rythmic abnormalities Back/Spine/Pelvis Cervical Spine: normal cervical lordosis Skin General skin exam: no rashes or lesions noted Neuro General: no focal motor deficits Extrem Other: Tobias is no obvious gait antalgia. There is mild restriction of internal rotation when flexed bilaterally with mild positive impingement test on the right. Psych Appearance: grossly normal and well kempt Mental Status: mental status grossly normal Speech and movement: Normal speech and movement present Affect: normal affect Attitude: cooperative Results Reviewed Results Reviewed: I personally reviewed relevant radiographs. There is moderate right hip osteoarthritis bordering on severe with a large periacetabular cyst. Status post left hip replacement with mild varus angulation of the prosthesis Assessment & Plan Assessment & Plan (1) Arthritis of right hip: Code(s): M16.11 - Unilateral primary osteoarthritis, right hip Category: Medical Plan: This is a very pleasant 74-year-old gentleman with right hip osteoarthritis. O verall his pain is minimal and does not bother him much. He does have some stiffness on the right side but that is also present on the left side which is status post hip replacement performed at [facility] in [facility]. I had a good conversation with him regarding treatment options and when, if ever, to consider arthroplasty. In my opinion he is not sufficiently debilitated by his moderate right hip arthritis. I explained that if his symptoms become worse and he has a daily limitation in activity with worsening pain we may consider it and that all things being equal I suspect that he would have a hip replacement prior to turning 78 more or less. He understands. At this point he will return to see me in 1 year or sooner if his pain worsens. Orders: Orders XR pelvis 1-2V 06/30/25 M25.559 - Pain in unspecified hip Coding Level of Care Code New Pt Level 4 (14014) Diagnoses Arthritis of right hip M16.11
--- OUTSIDE RECORDS SUMMARY | 2025-06-30 12:21 | XMS_ITS | Patient Health Record ---
Author Organization [facility] Address [address] [place] [address] Care Team Providers Care Food Services Manager Name Role Phone Saeid Parr MD Primary Care Provider Vipul Matthew [phone] Allergies Allergen (clinical drug ingredient) Drug/Non Drug [...] Problem History of polyp of colon (situation) (907330757) Personal history of colonic polyps (V12.72) Active confirmed Problem Screening for malignant neoplasm of colon (658282947) Special screening for malignant neoplasms, colon (V76.51) Active confirmed Plan Of Treatment Future Test Test Name Order Date COLONOSCOPY 03/17/2012 Insurance Providers Payer Name Payer Address Payer Phone Subscriber Number Group Number Insured Name Patient Relationship to Insured Coverage Start Date Coverage End Date [employer] [address] [place] [address] [id number] JACKIE WESLEY Self - patient is the insured Medical (General) History Medical History History ICD Code colonoscopy on 05-01-2007 with removal of a tubular adenoma supraventricular tachycardia in approx. 2007 Denies ID,DM,CVA,Lung disease,renal dise ase HTN Surgical History Surgery Date(Month/Year) Left hip replacement in [facility] 2009 Knee
--- OUTSIDE RECORDS SUMMARY | 2025-06-30 12:21 | XMS_ITS | Patient Health Record ---
Author Organization [facility] Address [address] [address] Care Team Providers Care French Professor Name Role Phone Tasha Nelson Primary Care Provider Gregorio Bishop Unavailable [phone] Allergies Allergen (clinical drug ingredient) Drug/Non Drug [...] Risk Notes Problem Pain in left foot (432827724984 107) Pain in left foot (M79.672) Active confirmed Problem Other hammer toe(s) (acquired), right foot (M20.41) [...] Medicare National [employer] [address] [place] [address] [id number] Tobias Morejon Self - patient is the insured [facility] [address] [place] [phone] [id number] Tobias Morejon Self - patient is the insured Medical (General) History Medical History History ICD Code right knee left hip Arthritis Back,Hip,and Knee pain Broken bones Heart disease Hepatitis Numbness Measles Mumps Chicken pox Joint implants/screws Surgical History Surgery Date(Month/Year) right knee 2013 left hip 2010 carpal tunnel 2016 kidney stones 10/2021 endoscopy 11/2021
== END 2025-06-30 11:37 | disposition home or self-care (01) ==
LOC: HO.HOS 10:57
PROVIDERS: PCP Internal Medicine; Visit Provider Orthopaedic Surgery
DX: M16.11 Unilateral primary osteoarthritis, right hip (principal)
CPT/HCPCS: 99203

== ENCOUNTER → 2025-06-30 11:05 | Outpatient (BNV) | payer OTHER, MEDICARE, SELFPAY | PROVIDERS: PCP Internal Medicine; Visit Provider Radiology Diagnostic Radiology | DX: M16.11 Unilateral primary osteoarthritis, right hip (principal); Z96.642 Presence of left artificial hip joint; I25.10 Atherosclerotic heart disease of native coronary artery without angina pectoris | CPT/HCPCS: 72170 ==

== ENCOUNTER 2025-09-08 09:06 | Outpatient (REF) | payer OTHER, MEDICARE, SELFPAY ==
--- NOTE | ~2025-09-08 | US_ITS ---
CLINICAL HISTORY: N40.0 - Benign prostatic hyperplasia without lower urinary tract symptoms US Urinary Bladder Comparison: None Findings: The urinary bladder is mildly thickened and trabeculated. Prevoid volume: 442 mL Postvoid volume: 146 mL Ureteral jets are visualized bilaterally. The prostate gland is enlarged at 98 mL in volume. IMPRESSION: Enlarged prostate gland with moderate postvoid residual and mildly trabeculated thick-walled bladder. This document has been electronically signed by: Star Cornell MD on 09/09/2025 09:54:35
--- OUTSIDE RECORDS SUMMARY | 2025-09-08 09:55 | XMS_ITS | Patient Health Record ---
Author Organization [facility] Address [address] [place] [address] Care Team Providers Care Breastfeeding Program Coordinator Name Role Phone Tasha Nelson Primary Care Provider Gregorio Gasca Unavailable [phone] Allergies Allergen (clinical drug ingredient) Drug/Non Drug [...] Risk Notes Problem Pain in left foot (7777718761905 07) Pain in left foot (M79.672) Active confirmed Problem Acquired hammer toe of right foot (8153875862658 105) Other hammer toe(s) (acquired), right foot [...] Medicare National Gov[employer] [address] [place] [address] [id number] Tobias Morejon Self - patient is the insured [facility] [address] [place] [id number] Tobias Morejon Self - patient is the insured Medical (General) History Medical History History ICD Code right knee left hip Arthritis Back,Hip,and Knee pain Broken bones Heart disease Hepatitis Numbness Measles Mumps Chicken pox Joint implants/screws Surgical History Surgery Date(Month/Year) right knee 2013 left hip 2010 carpal tunnel 2016 kidney stones 10/2021 endoscopy 11/2021
--- OUTSIDE RECORDS SUMMARY | 2025-09-08 09:55 | XMS_ITS | Data Portability ---
Author Organization [place] [facility] Address [address] [address] Care Team Providers Care Transfusion Aide Name Role Phone AVEL VÁZQUEZ Primary Care [...] Name and Address Organization Details Recorded Time Gastroeso phageal reflux disease without esophagit is 451949578 Active 2020 Gastro-es ophageal reflux disease without esophagit is; Note: Date Diagnosed : 07/31/2021 11:33 AM (K21.9) Not Available formerly [facility] 4 03:08:01 Sensorine ural hearing loss of bilateral ears 991247706 Active 2020 Sensorine ural hearing loss, bilateral ; Note: Date Diagnosed : 1 11:06 AM (H90.3) Not Available formerly [facility] 4 03:08:02 Impacted cerumen of bilateral ears 46315674792 32924 Active 2020 Impacted cerumen, bilateral ; Note: Date Diagnosed : 1 1:17 PM (H61.23) Not Available formerly [facility] 4 03:08:02 Acute pansinusi tis 6479633 Active 2021 Acute pansinusi tis, unspecifi ed; Note: Date Diagnosed : 2 9:52 AM (J01.40) Not Available formerly [facility] 4 03:08:00 Chronic hoarsenes s 23828782417 05 Active 2024 MARIE MONTAÑO MD [address] [place] [address], [phone] , [place] - [facility] 5 09:07:07 Problem Notes None recorded. Procedures Surgical History Date Name Laterality Status Provider Name and Address Organization Details Recorded Time 01/06/2025 FOL_DP completed MARIE MONTAÑO MD [address] [place] [address], [phone], [place] - [facility] 01/05/2025 17:15:58 12/09/2024 FOL_DP cancelled MARIE MONTAÑO MD [address] [place] [address], [phone], [place] - [facility] 12/08/2024 13:21:24 Imaging Results None recorded. Procedure Notes None recorded. Medical Equipment None Reported. Medications Name Sig Start Date Stop Date Status Note LastModified by Organization Details LastModified Time flecainide 50 mg tablet active Medication ID: [id number] Bran d Name: flecainide Send Method: E-Prescribe d Subs Allowed: subs OK Medicati onGenericNa me: flecainide Not Available Not Available Not Available metoprolol succinate ER 25 mg tablet,exten ded release 24 hr active Medication ID: [id number] Bran d Name: metoprolol succinate S end Method: E-Prescribe d Subs Allowed: subs OK Special Instruction : TAKE 1 TABLET BY MOUTH EVERY DAY Medicat ionGenericN jeny: metoprolol succinate Not Available Not Available Not Available Xarelto 20 mg tablet active Medication ID: [id number] Bran d Name: Xarelto Sen d Method: E-Prescribe d Subs Allowed: subs OK Special Instruction : TAKE 1 TABLET BY MOUTH EVERY DAY Medicat ionGenericN jeny: Xarelto Not Available Not Available Not Available Vitals Date Recorded Body height Body mass index (BMI) Body weight Provider Name and Address Organization Details Last Updated DateTime 01/06/2025 172.72 cm 23.9 kg/m2 26165 g Nicholas Snow [place] - [facility] 01/06/2025 08:52:10 Social History None recorded. Functional Status None recorded. Mental Status None recorded. Family History Nothing Reported. Medical History No medical history recorded. Past Encounters Encounter ID Performer Location Encounter Start Date Encounter Closed Date Diagnosis/Indication Diagnosis SNOMED-CT Code Diagnosis ICD10 Code Diagnosis IMO Codes Diagnosis Note [id number] [facility] [place] [address] [place] [address] 04/23/2024 15:51:14 05/24/2024 14:56:31 Sensorineural hearing loss of bilateral ears 620778481 H90.3 [id number] MARIE MONTAÑO MD [facility] [address] [address] 01/06/2025 08:36:52 01/06/2025 09:08:50 Chronic hoarseness 6763603964 105 R49.0 Health Concerns Section Related Observation LastModified by Organization Detai ls LastModified Time None Recorded Concern Status LastModified by Organization Details LastModified Time None Recorded Advance Directives Directive None Recorded Payers Insurance Date Sequence Insurance Name Policy Number Policy Moncada Covered Member ID Moncada Member ID Guarantor Name 01/06/2025 1 [place] [employer] Tobias Taborpott [id number] Tobias Nair Jean-Pierre 01/06/2025 2 [employer] [facility] [place] (HMO) [id number] Tobias Nair Jean-Pierre [id number] Tobias Taborpott 01/06/2025 2 [facility] (MEDICARE SUPPLEMENT) Tobias Nair Jean-Pierre [id number] Tobias Korey Jean-Pierre Notes Date Note Type Note Provider Name and Address Organization Details Recorded Time 04/23/2024 text/html Been doing well so far since the new repair. MAC STEVENS [address], [address], [place] - [facility] 04/23/2024 16:16:54 01/06/2025 text/html ROS as noted in the HPI hoarseno relief with sips of waterimproves with practice singing loudly PV 02/27/24 sinai Herman. Hearing aids with Hali MONTAÑO MD [address] [place] [address],[place] [address], [place], [address], [facility] - [facility] 01/06/2025 09:08:51
--- OUTSIDE RECORDS SUMMARY | 2025-09-08 09:55 | XMS_ITS | Patient Health Record ---
Author Organization [facility] Address [address] [place] [address] Care Team Providers Care Stone Gang Sawyer Name Role Phone Saeid Parr MD Primary Care Provider Vipul Matthew [phone] Allergies Allergen (clinical drug ingredient) Drug/Non Drug Allergy documented on EMR Reaction Allergy Type Onset Date Status compazine (uncoded) Unknown Allergy Active Reason For Referral No Information Medications Medication SIG (Take, Route, Fr equency, Duration) Notes Start Date End Date Status Aspir-81 Active LORazepam 11/03/2024 11/03/2024 Active Metoprolol Tartrate 11/03/2024 1 Active MoviPrep 100 GM as directed Orally 1 time only; Duration: 1 dose 03/17/2012 Active Problems Problem Type SNOMED Code ICD Code Onset Dates Problem Status W/U Status Risk Notes Problem History of polyp of colon (situation) (525837503) Personal history of colonic polyps (V12.72) Active confirmed Problem Screening for malignant neoplasm of colon (111120594) Special screening for malignant neoplasms, colon (V76.51) Active confirmed Plan Of Treatment Future Test Test Name Order Date COLONOSCOPY 03/17/2012 Insurance Providers Payer Name Payer Address Payer Phone Subscriber Number Group Number Insured Name Patient Relationship to Insured Coverage Start Date Coverage End Date [employer] [address] [place] [address] [id number] JACKIE WESLEY Self - patient is the insured Medical (General) History Medical History History ICD Code colonoscopy on 05-01-2007 with removal of a tubular adenoma supraventricular tachycardia in approx. 2007 Denies RI,DM,CVA,Lung disease,renal dise ase HTN Surgical History Surgery Date(Month/Year) Left hip replacement in [facility] 2009 Knee
== END 2025-09-08 09:07 | disposition home or self-care (01) ==
LOC: HO.US 09:06
PROVIDERS: PCP Internal Medicine; Visit Provider Urology
DX: N40.0 Benign prostatic hyperplasia without lower urinary tract symptoms (principal)
CPT/HCPCS: 76857

== ENCOUNTER → 2025-09-08 09:09 | Outpatient (BNV) | payer OTHER, MEDICARE, SELFPAY | PROVIDERS: PCP Internal Medicine; Visit Provider Radiology Vascular & Interventional Radiology | DX: N40.0 Benign prostatic hyperplasia without lower urinary tract symptoms (principal) | CPT/HCPCS: 76857 ==

== ENCOUNTER 2025-10-05 12:14 | Outpatient (REF) | payer OTHER, MEDICARE, SELFPAY ==
[2025-10-05 14:17] LABS: Appearance Urine Clear; Glucose Urine UA Negative (Negative); PH 5.5 (5.0-9.0); Specific Gravity - Urine <= 1.005 (1.005-1.025); UMIC TRIGGER UA YES
--- OUTSIDE RECORDS SUMMARY | 2025-10-05 14:32 | XMS_ITS | Patient Health Record ---
Author Organization [facility] Address [address] [place] [address] Care Team Providers Care Bottom Sprayer Name Role Phone Saeid Parr MD Primary Care Provider Vipul Matthew [phone] Allergies Allergen (clinical drug ingredient) Drug/Non Drug Allergy documented on EMR Reaction Allergy Type Onset Date Status compazine (uncoded) Unknown Allergy Active Reason For Referral No Information Medications Medication SIG (Take, Route, Frequency, Duration) Notes Start Date End Date Status Aspir-81 Active LORazepam Active Metoprolol Tartrate 11/03/1900 1 Active MoviPrep 100 GM Solution Reconstituted as directed Orally 1 time only; Duration: 1 dose 03/17/2012 Active Social History Social History Additional Details Category Social Info Options Details Miscellaneous: Marital status: 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 Section Notes: Nonsmoker; 2 glasses of wine most days Problems Problem Type SNOMED Code ICD Code Onset Dates Problem Status W/U Status Risk Notes Problem History of polyp of colon (situation) (499518029) Personal history of colonic polyps (V12.72) Active confirmed Problem Screening for malignant neoplasm of colon (600138490) Special screening for malignant neoplasms, colon (V76.51) Active confirmed Plan Of Treatment Future Test Test Name Order Date COLONOSCOPY 03/17/2012 Insurance Providers Payer Name Payer Address Payer Phone Subscriber Number Group Number Insured Name Patient Relationship to Insured Coverage Start Date Coverage End Date [employer] IN[employer]ITY [address] [place] [address] [id number] JACKIE WESLEY Self - patient is the insured Medical (General) History Medical History History ICD Code colonoscopy on 05-01-2007 with removal of a tubular adenoma supraventricular tachycardia in approx. 2007 Denies MT,DM,CVA,Lung disease,renal dise ase HTN Surgical History Surgery Date(Month/Year) Left hip replacement in [facility] 2009 Knee
--- OUTSIDE RECORDS SUMMARY | 2025-10-05 14:32 | XMS_ITS | Data Portability ---
Author Organization [place] - [facility], Allergy Address [address] [address] Care Team Providers Care Bike Mechanic Name Role Phone AVEL VÁZQUEZ Primary Care Provider [phone] Assessment Encounter Date Assessment Date Assessment LastModified [...] Gastroeso phageal reflux disease without esophagit is 169813453 Active 2020 Gastro-es ophageal reflux disease without esophagit is; Note: Date Diagnosed : 07/31/2021 11:33 AM (K21.9) Not Available [facility] 4 03:08:01 Sensorine ural hearing loss of bilateral ears 129201306 Active 2020 Sensorine ural hearing loss, bilateral ; Note: Date Diagnosed : 1 11:06 AM (H90.3) Not Available [facility] 4 03:08:02 Impacted cerumen of bilateral ears 14211905416 85313 Active 2020 Impacted cerumen, bilateral ; Note: Date Diagnosed : 1 1:17 PM (H61.23) Not Available [facility] 4 03:08:02 Acute pansinusi tis 4613783 Active 2021 Acute pansinusi tis, unspecifi ed; Note: Date Diagnosed : 2 9:52 AM (J01.40) Not Available [facility] 4 03:08:00 Chronic hoarsenes s 58796076841 05 Active 2024 MARIE MONTAÑO MD [address] [place] [address], [phone] , [place] - [facility] 5 09:07:07 Problem Notes None recorded. Procedures Surgical History Date Name Laterality Status Provider Name and Address Organization Details Recorded Time 01/06/2025 FOL_DP completed MARIE MONTAÑO MD [address] [place] [address], [phone], [place] - [facility] 01/05/2025 17:15:58 12/09/2024 FOL_DP cancelled MARIE MONTAÑO MD [address] [place] [address], [phone], [place] - [facility] 12/08/2024 13:21:24 Imaging Results None recorded. Procedure Notes None recorded. Medical Equipment None Reported. Medications Name Sig Start Date Stop Date Status Note LastModified by Organization Details LastModified Time flecainide 50 mg tablet active Medication ID: [id number] Bran d Name: flecainide Send Method: E-Prescribe d Subs Allowed: subs OK Medicati onGenericNa me: flecainide Not Available Not Available Not Available metoprolol succinate ER 25 mg tablet,exten ded release 24 hr active Medication ID: [id number] Bran d Name: metoprolol succinate S end Method: E-Prescribe d Subs Allowed: subs OK Special Instruction : TAKE 1 TABLET BY MOUTH EVERY DAY Medicat ionGenericN jeny: metoprolol succinate Not Available Not Available Not Available Xarelto 20 mg tablet active Medication ID: [id number] Bran d Name: Xarelto Sen d Method: E-Prescribe d Subs Allowed: subs OK Special Instruction : TAKE 1 TABLET BY MOUTH EVERY DAY Medicat ionGenericN jeny: Xarelto Not Available Not Available Not Available Vitals Date Recorded Body height Body mass index (BMI) Body weight Provider Name and Address Organization Details Last Updated DateTime 01/06/2025 172.72 cm 23.9 kg/m2 02552 g Nicholas Snow [place] - [facility] 01/06/2025 08:52:10 Social History None recorded. Functional Status None recorded. Mental Status None recorded. Family History Nothing Reported. Medical History No medical history recorded. Past Encounters Encounter ID Performer Location Encounter Start Date Encounter Closed Date Diagnosis/Indication Diagnosis SNOMED-CT Code Diagnosis ICD10 Code Diagnosis IMO Codes Diagnosis Note [id number] [facility] [place] [address] [place] [id number] 04/23/2024 15:51:14 05/24/2024 14:56:31 Sensorineural hearing loss of bilateral ears [id number] H90.3 [id number] MARIE MONTAÑO MD [facility] [address] [phone] 01/06/2025 08:36:52 01/06/2025 09:08:50 Chronic hoarseness 3678666723 105 R49.0 Health Concerns Section Related Observation LastModified by Organization Detai ls LastModified Time None Recorded Concern Status LastModified by Organization Details LastModified Time None Recorded Advance Directives Directive None Recorded Payers Insurance Date Sequence Insurance Name Policy Number Policy [place] Covered Member ID Moncada Member ID Guarantor Name 01/06/2025 1 [place]: [employer] Tobias Taborpott [id number] Tobias Nair Jean-Pierre 01/06/2025 2 [facility] PLANS [facility] - DIRECT - [place]ERO (HMO) [id number] Tobias Nair Jean-Pierre [id number] Tobias Taborpott 01/06/2025 2 [facility] (MEDICARE SUPPLEMENT) Tobias Nair Jean-Pierre [id number] Tobias Korey Jean-Pierre Notes Date Note Type Note Provider Name and Address Organization Details Recorded Time 04/23/2024 text/html Been doing well so far since the new repair. MAC STEVENS [address], [address], [place] - [facility] 04/23/2024 16:16:54 01/06/2025 text/html ROS as noted in the HPI hoarseno relief with sips of waterimproves with practice singing loudly PV 02/27/24 sinai Herman. Hearing aids with Hali MONTAÑO MD [address] [place] [address],[place] [address], [place], [phone], [facility] - [facility] 01/06/2025 09:08:51
== END 2025-10-05 12:15 | disposition home or self-care (01) ==
LOC: HO.LAB 12:14
PROVIDERS: PCP Internal Medicine; Visit Provider Urology
DX: N20.0 Calculus of kidney (principal); N40.0 Benign prostatic hyperplasia without lower urinary tract symptoms; R31.9 Hematuria, unspecified
CPT/HCPCS: 81001; 87086